=== PATIENT | male | born 1940 | race Caucasian/White ===

== ENCOUNTER 2022-07-10 17:39 | Emergency (ER) | payer MEDICARE, SELFPAY ==
[2022-07-10 17:46] VITALS: BP 116/64; PULSE 107; RESP 18; TEMP 36.1; O2SAT 92; BMI 25.1
--- NOTE | 2022-07-10 18:34 | ED_ITS ---
HPI - General Adult General Time Seen by Provider: 18:35 Date Seen: 07/10/22 Chief complaint: Shortness of Breath/Dyspnea Stated complaint: BREATHING PROBLEMS,HOT/COLD Time Seen by Provider: 07/10/22 18:11 Source: patient and family () History of Present Illness HPI narrative: 82-year-old male presents with a 1 day history of feeling hot and cold. He has monitor his temperature at home and has had a temperature as high as 101?. He also has fatigue and malaise and loss of appetite with this. He reports some generalized achiness. He has not had significant cough or cold symptoms. He has not had nausea vomiting or diarrhea. He does have an indwelling suprapubic catheter. The catheter was changed 4 days ago at his urologist's office. He has had no known exposures but he has been out in the public for the last few days associated with [employer] . Prior to that he was feeling well. Active Problems Medical Problems: Hypothyroidism Medication started 12/16, s/p benign biopsy with Dr. 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 PFSH PFSH Social History Smoking Status: Never smoker Do you use any of these nicotine containing products: None Second hand tobacco smoke exposure: No How often do you have a drink containing alcohol: never AUDIT-C Alcohol total score: 0 Non-prescribed substance use: denies use Exam Narrative: Exam Narrative: He is alert and appears in no distress. Skin is warm to touch. Eyes are normal. Oropharynx is normal. Neck is supple without mass or adenopathy. Respirations are clear to auscultation. Breathing is unlabored. Cardiovascular: S1, S2, regular rate and rhythm. No murmur gallop or rub. Abdomen: Bowel sounds active. Abdomen is soft without tenderness or mass. Suprapubic tube without significant erythema around the opening. Somewhat concentrated but otherwise normal appearing urine is seen. External genitalia normal. Extremities are without edema. No rash. Const: Vital Signs, click to edit/add: Vital Signs - 24 hr 07/10/22 17:46 Temperature 96.9 F L Pulse Rate [Right Pulse Oximeter] 107 H Respiratory Rate 18 Blood Pressure [Ri ght Upper Arm] 116/64 Pulse Oximetry 92 Oxygen Delivery Me thod Room Air Documenting provider has reviewed patient's vital signs: yes Course Course Hospital Course: Patient remains stable through his emergency department stay Vital Signs Vital signs: Initial Vital Signs Temperature 96.9 F L 07/10/22 17:46 Temperature Source Temporal Artery Scan 07/10/22 17:46 Pulse Rate 107 H 07/10/22 17:46 Respiratory Rate 18 07/10/22 17:46 Blood Pressure 116/64 07/10/22 17:46 Blood Pressure Mean 81 07/10/22 17:46 Blood Pressure Position Sitting 07/10/22 17:46 Pulse Oximetry 92 07/10/22 17:46 Oxygen Delivery Method 07/10/22 17:46 Vital Signs Temperature 96.9 F L 07/10/22 17:46 Pulse Rate 107 H 07/10/22 17:46 Respiratory Rate 18 07/10/22 17:46 Blood Pressure 116/64 07/10/22 17:46 Pulse Oximetry 92 07/10/22 17:46 Oxygen Delivery Method 07/10/22 17:46 Temperature 96.9 F L 07/10/22 17:46 Pulse Rate 107 H 07/10/22 17:46 Respiratory Rate 18 07/10/22 17:46 Blood Pressure 116/64 07/10/22 17:46 Pulse Oximetry 92 07/10/22 17:46 Oxygen Delivery Method 07/10/22 17:46 Medical Decision Making Lab Data Labs: Lab Results 07/10/22 07/10/22 07/10/22 Range/Units 18:32 18:32 18:55 WBC 9.54 (4.50-11.00) K/uL RBC 3.66 L (4.30-5.90) m/uL Hgb 12.3 L (13.5-17.5) gm/dL Hct 35.1 L (37.0-53.0) % MCV 96 (80-100) fL MCH 34 (26-34) pg MCHC 35 (32-36) gm/dL RDW Coeff of Loni 13.8 (11.5-15.5) % Plt Count 172 (140-440) K/uL Neut % (Auto) 93.7 H (42.0-72.0) % Lymph % (Auto) 2.3 L (20-44) % Gem % (Auto) 3.8 (0.0-11.0) % Eos % (Auto) 0.0 (0.0-7.0) % Baso % (Auto) 0.1 (0.0-3.0) % Neut # (Auto) 8.90 H (1.7-7.0) K/uL Lymph # (Auto) 0.20 L (0.90-2.90) K/uL Gem # (Auto) 0.40 (0.00-0.90) K/UL Eos # (Auto) 0.00 (0.00-0.50) K/uL Baso # (Auto) 0.01 (0.00-0.30) K/uL Abs Immat Gran (auto) 0.01 (0.00-0.30) K/uL Sodium (135-149) mmol/L Potassium (3.6-5.1) mmol/L Chloride (96-114) mmol/L Carbon Dioxide (20-32) mmol/L BUN (7-30) mg/dL Creatinine (0.5-1.5) mg/dL Estimated Creat Clear Estimated GFR ml/min Glucose (60-115) mg/dL Calcium (8.4-10.6) mg/dL C-Reactive Protein (0.5-1.0) mg/dL Urine Color [place] A (Yellow) Urine Appearance Cloudy A (Clear) Urine pH 6.5 (5.0-8.5) Ur Specific [place] 1.025 (1.000-1.030) Urine Protein 2+ A (Negative) Urine Glucose (UA) Negative (Negative) Urine Ketones Negative (Negative) Urine Blood 2+ A (Negative) Urine Nitrite Positive A (Negative) Urine Bilirubin Negative (Negative) Urine Urobilinogen 0.2 (0.2-1.0) Ur Leukocyte Esterase Trace A (Negative) Urine RBC 10-25 A (0-2) Urine WBC 5-10 A (0-5) Ur Squamous Epith Cells Few (None-Few) Amorphous Sediment Few A (None) Urine Bacteria Moderate A (None) SARS-CoV-2 (PCR) Negative SARS-CoV-2 (Negative) Influenza Type A (PCR) Negative PCR FLU A (Negative) Influenza Type B (PCR) Negative PCR FLU B (Negative) 07/10/22 Range/Units 18:55 WBC (4.50-11.00) K/uL RBC (4.30-5.90) m/uL Hgb (13.5-17.5) gm/dL Hct (37.0-53.0) % MCV (80-100) fL MCH (26-34) pg MCHC (32-36) gm/dL RDW Coeff of Loni (11.5-15.5) % Plt Count (140-440) K/uL Neut % (Auto) (42.0-72.0) % Lymph % (Auto) (20-44) % Gem % (Auto) (0.0-11.0) % Eos % (Auto) (0.0-7.0) % Baso % (Auto) (0.0-3.0) % Neut # (Auto) (1.7-7.0) K/uL Lymph # (Auto) (0.90-2.90) K/uL Gem # (Auto) (0.00-0.90) K/UL Eos # (Auto) (0.00-0.50) K/uL Baso # (Auto) (0.00-0.30) K/uL Abs Immat Gran (auto) (0.00-0.30) K/uL Sodium 132 L (135-149) mmol/L Potassium 4.0 (3.6-5.1) mmol/L Chloride 104 (96-114) mmol/L Carbon Dioxide 21 (20-32) mmol/L BUN 23 (7-30) mg/dL Creatinine 1.3 (0.5-1.5) mg/dL Estimated Creat Clear 41.67 Estimated GFR 55 ml/min Glucose 123 H (60-115) mg/dL Calcium 8.8 (8.4-10.6) mg/dL C-Reactive Protein 7.5 H (0.5-1.0) mg/dL Urine Color (Yellow) Urine Appearance (Clear) Urine pH (5.0-8.5) Ur Specific [place] (1.000-1.030) Urine Protein (Negative) Urine Glucose (UA) (Negative) Urine Ketones (Negative) Urine Blood (Negative) Urine Nitrite (Negative) Urine Bilirubin (Negative) Urine Urobilinogen (0.2-1.0) Ur Leukocyte Esterase (Negative) Urine RBC (0-2) Urine WBC (0-5) Ur Squamous Epith Cells (None-Few) Amorphous Sediment (None) Urine Bacteria (None) SARS-CoV-2 (PCR) (Negative) Influenza Type A (PCR) (Negative) Influenza Type B (PCR) (Negative) Discharge Plan Discharge Clinical Impression: Urinary tract infection, Fever Patient Disposition: Home, Self-Care Condition: Stable Additional Instructions: Take 1/2 tablet of Sulfatrim twice a day starting tonight. Take only 1/2 tablet twice a day. One whole tablet is too strong a dose. Drink plenty of fluids. See your doctor in 2-3 days for recheck and culture results. Return to the emergency department if you are getting worse. Activity Level: Activity as Tolerated Discharge Diet: Regular Prescriptions: No Action atorvastatin 20 mg tablet Label Comments: TAKE ONE TABLET BY MOUTH AT BEDTIME lisinopril 20 mg tablet Label Comments: TAKE 1 TABLET BY MOUTH ONCE DAILY. levothyroxine 88 mcg tablet Label Comments: TAKE ONE TABLET BY MOUTH ONCE DAILY Follow Up/Referrals: Deion Aguillon MD [Primary Care Provider] - (2-3 days) Stand Alone Forms: Lockr Info Instructions
--- OUTSIDE RECORDS SUMMARY | 2022-07-10 19:05 | XMS_ITS | Encounter Summary ---
:1940 Author Care Team Providers Name Role Phone [facility] Primary Care Provider [phone] Deion Aguillon MD Primary Care Provider [phone] Reason for Visit Lab/Nursing Visit Assessment and Plan 1. Retention of urine Discussion Note: None recorded.Patient educational handouts: No information available. Plan of Care Reminders Provider Appointments Lab Cath Change 08/03/2022 9:30AM Nurse_sched ule ? Lab Cath Change 08/31/2022 9:50AM Nurse_sched ule ? Lab Cath Change 10/26/2022 9:20AM Nurse_sched ule Lab None recorded. ? ? Referral None recorded. ? ? Procedures None recorded. ? ? Surgeries None recorded. ? ? Imaging None recorded. ? ? Medications Name Start Date ? ? Adult Low Dose Aspirin 81 mg tablet,delayed release ? Take 1 tablet every day by oral route. atorvastatin 20 mg tablet ? TAKE ONE TABLET BY MOUTH AT BEDTIME levothyroxine 75 mcg tablet ? Take 1 tablet every day by oral route. levothyroxine 88 mcg tablet ? TAKE ONE TABLET BY MOUTH ONCE DAILY lisinopril 10 mg tablet ? Take 1 tablet every day by oral route. lisinopril 20 mg tablet ? TAKE 1 TABLET BY MOUTH ONCE DAILY. Nexium 20 mg capsule,delayed release ? Take 1 capsule every day by oral route. sildenafil 50 mg tablet ? TAKE 1-2 TABLETS BY MOUTH NEEDED [facility] ON EMPTY STOMACH AROUND SEXUAL ACTIVITY Vitamin D3 10 mcg (400 unit) capsule ? Take by oral route. Medications Administered None recorded. Vitals None recorded. Results Lab Results None recorded. Allergies Code Code System Name Reaction Severity Onset 733 RxNorm Ampicillin ? ? ? 290575 RxNorm Demerol ? ? ? Penicillin ? ? ? Problems Name Status Onset Date Source ? Finding of Bladder Emptying Active 12/12/2017 Hist ory Raised Prostate Specific Antigen Active 06/27/2018 History Procedures Date Name Performed by ? 03/04/2020 Insert Temp Bladder Cath Information not available Notes: 03/04/2020 - INSERT TEMP BLADDE R CATH 01/29/2020 Insert Temp Bladder Cath Information not available Notes: 01/29/2020 - INSERT TEMP BLADDE R CATH 01/01/2020 Insert Temp Bladder Cath Information not available Notes: 01/01/2020 - INSERT TEMP BLADDE R CATH 12/04/2019 Insert Temp Bladder Cath Information not available Notes: 12/04/2019 - INSERT TEMP BLADDE R CATH 10/30/2019 Insert Temp Bladder Cath Information not available Notes: 10/30/2019 - INSERT TEMP BLADDE R CATH 10/09/2019 Insert Temp Bladder Cath Information not available Notes: 10/09/2019 - INSERT TEMP BLADDE R CATH 08/28/2019 Insert Temp Bladder Cath Information not available Notes: 08/28/2019 - INSERT TEMP BLADDE R CATH 07/31/2019 Insert Temp Bladder Cath Information not available Notes: 07/31/2019 - INSERT TEMP BLADDE R CATH 07/03/2019 Insert Temp Bladder Cath Information not available Notes: 07/03/2019 - INSERT TEMP BLADDE R CATH 05/29/2019 Insert Temp Bladder Cath Information not available Notes: 05/29/2019 - INSERT TEMP BLADDE R CATH 05/08/2019 Insert Temp Bladder Cath Information not available Notes: 05/08/2019 - INSERT TEMP BLADDE R CATH 03/20/2019 Insert Temp Bladder Cath Information not available Notes: 03/20/2019 - INSERT TEMP BLADDE R CATH 02/20/2019 Insert Temp Bladder Cath Information not available Notes: 02/20/2019 - INSERT TEMP BLADDE R CATH 01/23/2019 Insert Temp Bladder Cath Information not available Notes: 01/23/2019 - INSERT TEMP BLADDE R CATH 12/26/2018 Insert Temp Bladder Cath Information not available Notes: 12/26/2018 - INSERT TEMP BLADDE R CATH 11/21/2018 Insert Temp Bladder Cath Information not available Notes: 11/21/2018 - INSERT TEMP BLADDE R CATH 10/24/2018 Insert Temp Bladder Cath Information not available Notes: 10/24/2018 - INSERT TEMP BLADDE R CATH 09/26/2018 Insert Temp Bladder Cath Information not available Notes: 09/26/2018 - INSERT TEMP BLADDE R CATH 08/22/2018 Insert Temp Bladder Cath Information not available Notes: 08/22/2018 - INSERT TEMP BLADDE R CATH 07/25/2018 Insert Temp Bladder Cath Information not available Notes: 07/25/2018 - INSERT TEMP BLADDE R CATH 06/27/2018 Insert Temp Bladder Cath Information not available Notes: 06/27/2018 - INSERT TEMP BLADDE R CATH 05/24/2018 Insert Temp Bladder Cath Information not available Notes: 05/24/2018 - INSERT TEMP BLADDE R CATH 04/25/2018 Insert Temp Bladder Cath Information not available Notes: 04/25/2018 - INSERT TEMP BLADDE R CATH 02/27/2018 Insert Temp Bladder Cath Information not available Notes: 02/27/2018 - INSERT TEMP BLADDE R CATH 01/24/2018 Insert Temp Bladder Cath Information not available Notes: 01/24/2018 - INSERT TEMP BLADDE R CATH 01/03/2018 Anal/urinary Muscle Study Information no t available Notes: 01/03/2018 - ANAL/URINARY MUSCL E STUDY 01/03/2018 Cystometrogram W/scarifier operator&up Information not a vailable Notes: 01/03/2018 - CYSTOMETROGRAM W/V P&UP 01/03/2018 Insert Temp Bladder Cath Information not available Notes: 01/03/2018 - INSERT TEMP BLADDE R CATH 01/03/2018 Intraabdominal Pressure Test Information not available Notes: 01/03/2018 - INTRAABDOMINAL PRE SSURE TEST 01/03/2018 Electro-uroflowmetry First Information n ot available Notes: 01/03/2018 - ELECTRO-UROFLOWMET RY FIRST 12/20/2017 Insert Temp Bladder Cath Information not available Notes: 12/20/2017 - INSERT TEMP BLADDE R CATH 12/20/2017 Cystoscopy Information not avai lable Notes: 12/20/2017 - CYSTOSCOPY 10/29/2012 Colonoscopy Thru Stoma Spx Information n ot available Notes: 10/29/2012 - COLONOSCOPY THRU S BHARGAV SPX 12/12/1977 Removal of Gallbladder Information not a vailable Notes: 12/12/1977 - REMOVAL OF GALLBLA DDER Vaccine List Vaccine Type COVID-19, mRNA, LNP-S, PF, 30 mcg/0.3 mL dose ([employer]) 12/07/2020 12/28/2020 10/18/2021 influenza, high dose seasonal 08/14/2019 influenza, high-dose, quadrivalent 09/21/2021 influenza, seasonal, injectable 08/11/2008 08/26/2009 influenza, seasonal, injectable, preserv ative free 09/01/2011 pneumococcal polysaccharide PPV23 08/11/2008 Tdap 08/14/2019 Social History Tobacco Smoking Status Former Smoker Marital status Has tobacco cessation counseling been provided? Y Are you currently employed? N Could you be ? N Preferred Language Panamanian How much tobacco do you chew? none What was the date of your most recent tobacco 06/08/2022 screening? Do you or have you ever used e-cigarettes or Never used elec tronic cigarettes vape? Ethnicity Not / Do you use any illicit or recreational drugs? N When did you quit smoking? 16+yearssincelastcigarette How many years have you smoked tobacco? 6 What is your relationship status? Unknown What is your level of alcohol consumption? Occasional Do you or have you ever used smokeless tobacco? Never used s mokeless tobacco On what date was tobacco cessation counseling 05/04/2022 provided? Are you sexually active? N Do you or have you ever used any other forms of N tobacco or nicotine? What is your level of caffeine consumption? Occasional Race White Recreational Drug Use N Functional Status Unknown. Past Encounters 07/06/2022 Retention of Urine Lola Cadena, PA: [address] [place] [address], [address] [address], Ph. 06/08/2022 Urinary Tract Infectious Disease; Retent ion of Urine Kimo Simmons, PAC: [address] [facility], [facility] [address] [address], Ph. History of Present Illness None recorded. Review of Systems None recorded. Physical Exam None recorded.
--- OUTSIDE RECORDS SUMMARY | 2022-07-10 19:05 | XMS_ITS | Encounter Summary ---
:1940 Author Care Team Providers Name Role Phone [facility] Primary Care Provider [phone] Deion Aguillon MD Primary Care Provider [phone] Reason for Visit Monthly Catheter Change Assessment and Plan 1. Primary erectile dysfunction ? sildenafil 50 mg tablet 2. Neurogenic bladder Discussion Note 81 y/o male presents for an evaluation of ED and follow up of neurogenic bladder. ED - Educated on etiology of ED (hormona l, nerve function, blood supply, psychological, medications). Discussed diagnostics such as penile US and testosterone labs. Educated on treatment options such as PDE-5 inhibitors, penile injections, mu se, vacuum erection device (MANDY), and penile implant (IPP). Discontinue Tadalafil. Trial of Sildenafil 50-100 mg timed around sexual activity. Educated on side ef fects such as vision/hearing changes, hy potension, facial flushing, headache, nasal congestion, GERD, and priapism. Patient to call with an update after use. Neurogenic bladder - SP catheter replace d without difficulty. Maintain exchanges every 4 weeks. Patient educational handouts: No information available. Plan of [...] oral route. Medications Administered None recorded. Vitals Height Weight BMI 5 ft 6 in 160 lbs 25.8 kg/m2 Results Lab Results None recorded. Allergies Code Code System Name Reaction Severity Onset 733 RxNorm Ampicillin ? ? ? 076265 RxNorm Demerol ? ? ? Penicillin ? [...] - ANAL/URINARY MUSCL E STUDY 01/03/2018 Cystometrogram W/vp of technology&up Information not a vailable Notes: 01/03/2018 - [...] mRNA, LNP-S, PF, 30 mcg/0.3 mL dose ([employer]) 12/07/2020 12/28/2020 10/18/2021 influenza, high dose seasonal 08/14/2019 influenza, high-dose, quadrivalent 09/21/2021 influenza, seasonal, injectable 08/11/2008 08/26/2009 influenza, seasonal, injectable, preserv ative free 09/01/2011 pneumococcal polysaccharide PPV23 08/11/2008 Tdap 08/14/2019 Social History Tobacco Smoking Status Former Smoker Marital status Has tobacco cessation counseling been provided? Y Are you currently employed? N Could you be ? N Preferred Language Czech How much tobacco do you chew? none What was the date of your most recent tobacco 06/08/2022 screening? Ethnicity Not / Do you or have you ever used e-cigarettes or Never used elec tronic cigarettes vape? Do you use any illicit or recreational [...] Use N Functional Status Unknown. Past Encounters 05/04/2022 Primary Erectile Dysfunction; Neurogenic Bladder Kimo Simmons, PAC: [address] [facility] [address], [place] [address], Ph. History of Present Illness ? Voiding Dysfunction Reported By: Patient Notes: <div>Patient with hx of neur ogenic bladder presents for a routine suprapubic catheter change. He has been tolerating SP catheter well since last visit. Yellow uri ne draining freely though catheter. Mild, infrequent discharge around SP catheter site. Denies fever, chills, gross hematuria and abdomina l pain.</div> ? Erectile Dysfunction Reported By: Patient Notes: <div>Patient presents for an evaluation of erectile dysfunction. He reports difficulties with er ections for the past 4+ years. He has required a george catheter fo r the past 4 years which has limited his ability to have erections. Rey oconnor did have mild difficulties with quality of erections prior to catheter use. He has transitioned to a suprapubic catheter within the past 6 m ont and is interested in getting erectile function back. Able to achie ve a borderline ehs of 3 with borderline adequate maintenance. No angelito n or curvature with erections. Good libido and energy for age. </div> Review of Systems: ROS as noted in the HPI Review of Systems ? Comprehensive General Adult ROS Reported By: Patient Constitutional: Constitutional: no fever, no chills Eyes: Eyes: no dry eyes, no vision change, no irritation Endocrine: Endocrine: no fatigue, no in creased thirst Cardiovascular: Cardiovascular: no chest angelito n, no palpitations Integumentary: Skin: no rashes, no change i n skin color Respiratory: Respiratory: no wheezing, no cough, no shortness of breath Gastrointestinal: Gastrointestinal: no abdomin al pain, no nausea, no vomiting, no constipation, no GERD Musculoskeletal: Musculoskeletal: no neck angelito n, no back pain Neurologic: Neurologic: no tremor, no di zziness, no numbness, no headaches Genitourinary: Genitourinary: no incontinen ce, difficulty urinating; Has SP tube ENMT: Ears: no ear pain. Mouth/Thr oat: no sore throat Allergic/Immunologic: Allergy/Immunologic: no itch ing, no hives Hematologic/Lymphatic: Hematologic/Lymphatic no swo llen glands, no excessive bleeding Psychiatric: Psych: no hallucinations, (n ormal) sleep disturbances: mismatch of sleep / wake oswaldo edule with lifestyle needs Physical Exam ? General Adult Exam Male Reported By: Patient Constitutional: General Appearance: healthy- appearing, well-nourished, well-developed. Level of Dis tress: NAD. Ambulation: ambulating normally Psychiatric: Insight: good judgement. Men denis Status: active and alert, normal mood, normal affect. Orienta tion: oriented to time, oriented to place, oriented to person. M laurie: recent memory normal, remote memory normal Lungs: Respiratory effort: no dyspn ea Abdomen: Inspection and Palpation: so ft, non-distended, no tenderness; SP catheter in place
--- OUTSIDE RECORDS SUMMARY | 2022-07-10 19:05 | XMS_ITS | Clinical Summary ---
:1940 Author Organization [facility] Address [place] [address] Care Team Providers Name Role Phone David Lu MD Primary Care Provider Allergies Active Allergy Reactions Severity Noted Date Comments Ampicillin Rash 08/02/2006 Meperidine Nausea And Vomiting 08/02/2006 Penicillins Rash 08/02/2006 Medications Medication Sig Dispensed Refills Start Date End Date Status ASPIRIN 81 MG TAB one every day 90 0 08/26/2009 Active CENTRUM SILVER 500 one every day 90 0 08/26/2009 Active MCG-250 MCG CHEWABLE TAB VITAMIN D 1,000 UNIT one every day 90 0 08/26/2009 Active TAB terazosin (HYTRIN) 2 mg Take 1 capsule 90 capsule 06/13/2017 Active capsuleIndications: by mouth at Elevated prostate bedtime. specific antigen (PSA) esomeprazole magnesium Take by mouth. 0 06/13/2017 Active 20 mg TbECIndications: Gastric reflux tadalafil (CIALIS) 5 mg Take 1 tablet by 30 tablet 7 Active tabletIndications: ED mouth once (erectile dysfunction) daily. of organic origin lisinopril (PRINIVIL; TAKE 1 TABLET BY 30 tablet 0 09/09/2018 Active ZESTRIL) 10 mg MOUTH ONCE tabletIndications: DAILY. Essential hypertension, benign levothyroxine sodium Take by mouth. 0 Active (LEVOTHROID ORAL) Active Problems Problem Noted Date Colon polyps 08/15/2013 Elevated prostate specific antigen (PSA) 11/20/2007 Essential hypertension, benign 06/05/2007 Esophageal reflux 06/05/2007 Hypertrophy of prostate with urinary obstruction and o ther lower urinary 06/05/2007 tract symptoms (LUTS) Unspecified hemorrhoids without mention of complicatio n 06/05/2007 Umbilical hernia without mention of obstruction or eulalia grene 06/05/2007 Inguinal hernia without mention of obstruction or gang dipak, unilateral or 06/05/2007 unspecified, (not specified as recurrent) Immunizations Name Administration Dates Next Due Influenza, IIV3 (Age >=3 years) 09/01/2011, 08/26/2009, 07/29 Pneumococcal Poly,23-Valent (Pneumovax) 08/11/2008 Tetanus Toxoid 06/21/2006 Family History Relation Name Status Comments Mother (Age 89) 09/06 Social History Tobacco Use Types Packs/Day Years Used Date Former Smoker Quit: 10/29/18 62 Smokeless Tobacco: Never Used Tobacco Cessation: Counseling Given: No Comments: quit age 19 Alcohol Use Standard Drinks/Week Comments No 0 (1 standard drink = 0.6 oz pure alcoho l) 1-2 beers a month Alcohol Habits Answer Date Recorded How often do you have a drink containing alcohol? Not asked How many drinks containing alcohol do you have on a Not aske d typical day when you are drinking? How often do you have six or more drinks on one Not asked occasion? Comment: 1-2 beers a month 12/01/2021 Sex Assigned at Date Recorded Not on file Obstetrics History Last Filed Vital Signs Vital Sign Reading Time Taken Comments Blood Pressure 130/66 12/01/2021 1:34 PM RESIDENTIAL NURSE Pulse 72 12/01/2021 1:34 PM RESIDENTIAL NURSE Temperature 37.1 ??C (98.8 ??F) 12/01/2021 10:20 AM RESIDENTIAL NURSE Respiratory Rate 16 12/01/2021 1:34 PM RESIDENTIAL NURSE Oxygen Saturation 86% 12/01/2021 1:34 PM RESIDENTIAL NURSE Inhaled Oxygen Concentration - - Weight 74.8 kg (165 lb) 12/01/2021 10:20 AM RESIDENTIAL NURSE Height 167.6 cm (5' 6) 12/01/2021 10:20 AM RESIDENTIAL NURSE Body Mass Index 26.63 12/01/2021 10:20 AM RESIDENTIAL NURSE Plan of Treatment Health Maintenance Due Date Last Done Comments Tdap 1952 Tetanus booster 1961 Zoster (shingles) series for age 50+ 1991 (1 of 2) Pneumococcal series for age 65+ (2 - 08/11/2009 08/11/2008 PCV) BMI (ht and wt on same day) for age 0806/13/2018 06/13/2017, 08/09/2016 18+ Depression screening for age 12+ 06/13/2018 06/13/2017, , 08/09/2016 COVID-19 vaccine series (4 - Booster 02/16/2022 10/18/2021, 12/28/2020, for Pfizer series) 12/07/2020 Influenza for age 65+ 06/29/2022 09/01/2011, 08/26/2009, 08/11/2008 Results Not on filefrom Last 3 Months Insurance Payer Benefit Plan / Subscriber ID Effective Dates Phone Addre ss Type Group MEDICARE PART A MEDICARE PART A [id number] 2006-Present ATTN: CLAIMS - HB USE ONLY HB ONLY [address] [place] [address] UCARE MR [facility] MEDICARE [id number] 2019-Present [address] [place] [address] 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
--- OUTSIDE RECORDS SUMMARY | 2022-07-10 19:05 | XMS_ITS ---
:1940 Author Care Team Providers Name Role Phone [facility] Primary Care Provider [phone] FAMILIA ALAMO MD Primary Care Provider [phone] Allergies Code Code System Name Reaction Severity Status Onset 733 RxNorm Ampicillin ? ? Active ? 849889 RxNorm Demerol ? ? Active ? Penicillin ? ? Active ? Medications Name Status Start Date Stop Date ? ? Adult Low Dose Aspirin 81 mg tablet,delayed release Active ? Not available Take 1 tablet every day by oral route. atorvastatin 20 mg tablet Active ? Not av ailable TAKE ONE TABLET BY MOUTH AT BEDTIME levothyroxine 75 mcg tablet Active ? Not available Take 1 tablet every day by oral route. levothyroxine 88 mcg tablet Active ? Not available TAKE ONE TABLET BY MOUTH ONCE DAILY lisinopril 10 mg tablet Active ? Not avai lable Take 1 tablet every day by oral route. lisinopril 20 mg tablet Active ? Not avai lable TAKE 1 TABLET BY MOUTH ONCE DAILY. Nexium 20 mg capsule,delayed release Active ? Not available Take 1 capsule every day by oral route. sildenafil 50 mg tablet Active ? Not avai lable TAKE 1-2 TABLETS BY MOUTH NEEDED [facility] ED ON EMPTY STOMACH AROUND SEXUAL ACTIVITY tadalafil 20 mg tablet Completed ? 2 TAKE 1 TABLET BY MOUTH NEEDED TIMED AROUND SEXUAL ACTIVITY tadalafil 5 mg tablet Completed ? 03/14/2022 TAKE ONE TABLET BY MOUTH EVERY DAY FOR 30 DAYS Vitamin D3 10 mcg (400 unit) capsule Active ? Not available Take by oral route. Problems Name Status Onset Date Source ? [...] ANAL/URINARY MUSCL E STUDY 01/03/2018 Cystometrogram [employer]&up Information not a vailable Notes: 01/03/2018 - [...] Notes: 12/12/1977 - REMOVAL OF GALLBLA DDER Results Lab Results Date Name Specimen Result Interpretation Description Value Range Status Address ? 06/08/2022 Urinalysis, UR ? Color yellow yellow Final [place] [facility]: [address] [place] [address] ? ? UR ? Appearance clear clear Final [place] [facility]: [address] [address], [place] ? ? UR ? Glucose negative negative Final [place] [facility] mg/dL mg/dL [facility]: [address] ? ? UR ? Bilirubin negative negative Final [place] [facility]: [address] ? ? UR ? Ketones negative negative Final [place] [facility] mg/dL mg/dL [facility]: [address] [address], [place] ? ? UR ? Sp. Ernest 1.010 1.010-1.0 Final [place] [facility]: [address] ? ? UR ? pH -[facility] 6.0 5.0-8.0 Final [place] [facility]: [address] ? ? UR ? Protein negative negative Final [place] [facility] mg/dL mg/dL [facility]: [address] ? ? UR ? Urobilinogen 0.2 normal Final [place] [facility]: [address] ? ? UR ? Nitrites negative negative Final [place] [facility]: [address] [address], [place] ? ? UR ABNORMA Blood large negative Final [place] [facility]: [address] ? ? UR ABNORMA Leukocytes small negative Final [place] [facility]: [address] ? ? UR ? Performed by va X ? Final [place] [facility]: [address] ? ? UR ? Total Urine 30mls /mL ? Final [place] Volume (mL) [facility]: [address] [place] [address] 06/08/2022 Urinalysis, ABNORMA U-WBC 2 - 5 [hpf] 0 - 2 Fi nal [place] Microscopic L [hpf] [facility]: [address] ? ? ? U-RBC 0 - 2 [hpf] 0 - 2 Final [place] [hpf] [facility]: [address] [place] [address], [place] ? ? ABNORMA Bacteria small [hpf] negative Final [place] L [hpf] [facility]: [address] [place] [address], [place] ? ? ? Squamous Epi small /lpf negative, Fin al Becky small [facility] - [facility]: [address] [place] [address], [place] 06/08/2022 Culture, URT ABNORMA Final Report microbiology ? Final [place] Urine L results [facility]: [address] [place] [address], [place] Past Encounters 07/06/2022 Retention of Urine Lola Cadena PA: [address] [place] [phone], Ph. 06/08/2022 Urinary Tract Infectious Disease; Retent ion of Urine Kimo Simmons, PAC: [address] [place], [place] [address] [address] [place] [phone], Ph. 05/04/2022 Primary Erectile Dysfunction; Neurogenic Bladder Kimo Simmons, PAC: [address] [place] [address], uite [address] [place] [phone], Ph. 03/09/2022 Retention of Urine Lola Cadena PA: [address] [place] [phone], Ph. 02/09/2022 Retention of Urine SHERRY Kurtz: [address] [place] [phone], Ph. 01/13/2022 Neurogenic Bladder; Primary Erectile Dys function SHERRY Kurtz: [address] [place] [phone], Ph. 11/10/2021 Retention of Urine Torres Gonzalez MD: [address] [place] [address], [place] [address] [place] [phone], Ph. 10/13/2021 Neurogenic Bladder Gennaro Smalls, PAC: [address] [place] [phone], Ph. 10/13/2021 Retention of Urine Torres Gonzalez MD: [address] [place] [address], [address], [place] [address], Ph. 08/25/2021 Retention of Urine Torres Gonzalez MD: [address] [place] [address], [address], [place] [address], Ph. 07/28/2021 Retention of Urine Torres Gonzalez MD: [address] [place] [address], [address], [place] [address], Ph. 06/30/2021 Retention of Urine Torres Gonzalez MD: [address] [place] [address], [address], [place] [phone], Ph. 06/02/2021 Retention of Urine; Acontractile Detruso r Torres Gonzalez MD: [address] [place] [address], [address], [place] [address], Ph. 06/02/2021 Retention of Urine Torres Gonzalez MD: [address] [place] [address], [address], [place] [address], Ph. 05/05/2021 Retention of Urine Torres Gonzalez MD: [address] [place] [address], [address], [place] [address], Ph. 04/07/2021 Retention of Urine Torres Gonzalez MD: [address] [place] [address], [address], [place] [address], Ph. 03/03/2021 Retention of Urine Torres Gonzalez MD: [address] [place] [address], [address], [place] [address], Ph. 02/03/2021 Retention of Urine Torres Gonzalez MD: [address] [place] [address], [address], [place] [address], Ph. Social History Tobacco Smoking Status Former Smoker Vaccine List Vaccine Type COVID-19, mRNA, LNP-S, PF, 30 mcg/0.3 mL dose (Youneeq) 12/07/2020 12/28/2020 10/18/2021 influenza, high dose seasonal 08/14/2019 influenza, high-dose, quadrivalent 09/21/2021 influenza, seasonal, injectable 08/11/2008 08/26/2009 influenza, seasonal, injectable, preserv ative free 09/01/2011 pneumococcal polysaccharide PPV23 08/11/2008 Tdap 08/14/2019 Plan of Care Reminders Provider Appointments None recorded. ? ? Lab None recorded. ? ? Referral None recorded. ? ? Procedures None recorded. ? ? Surgeries None recorded. ? ? Imaging None recorded. ? ? Vitals 06/08/2022 09:50AM LAB CATH CHANGE Height 5 ft 6 in 05/04/2022 08:00AM ESTABLISHED 30 Height Weight BMI 5 ft 6 in 160 lbs 25.8 kg/m2 01/13/2022 10:30AM ESTABLISHED 30 Height Weight BMI 5 ft 6 in 160 lbs 25.8 kg/m2 10/13/2021 11:30AM ESTABLISHED 30 Height Weight BMI 5 ft 6 in 160 lbs 25.8 kg/m2 06/02/2021 10:50AM ESTABLISHED 10 Height 5 ft 6 in 06/03/2020 10:50AM ESTABLISHED 15 Height Weight BMI 5 ft 6 in 160 lbs 25.8 kg/m2
--- OUTSIDE RECORDS SUMMARY | 2022-07-10 19:05 | XMS_ITS | Encounter Summary ---
:1940 Author Care Team Providers Name Role Phone [facility] Primary Care Provider [phone] Deion Aguillon MD Primary Care Provider [phone] Reason for Visit Catheter Change - Nurse Visit Assessment and Plan 1. Urinary tract infectious disease ? urinalysis, dipstick ? culture, urine 2. Retention of urine Discussion Note: None recorded.Patient educational handouts: No information available. Plan of Care Reminders Provider Appointments Lab Cath Change 08/03/2022 9:30AM Nurse_sched ule ? Lab Cath Change 08/31/2022 9:50AM Nurse_sched ule ? Lab Cath Change 10/26/2022 9:20AM Nurse_sched ule Lab Urinalysis, Dipstick 06/08/2022 [facility] ? Culture, Urine 06/08/2022 [facility] Referral None recorded. ? ? Procedures None [...] route. Medications Administered None recorded. Vitals Height 5 ft 6 in Results Lab Results Date Name Specimen Result Interpretation Description Value Range Status Address ? 06/08/2022 Urinalysis, UR ? Color yellow yellow Final [place] [facility]: [address] ? ? UR ? Appearance clear clear Final [place] [facility]: [address] [address], [place] ? ? UR ? Glucose negative negative Final [place] [facility] mg/dL mg/dL [facility]: [address] ? ? UR ? Bilirubin negative negative Final [place] [facility]: [address] ? ? UR ? Ketones negative negative Final [place] [facility] mg/dL mg/dL [facility]: [address] ? ? UR ? Sp. [place] 1.010 1.010-1.0 Final [place] [facility]: [address] ? ? UR ? pH -[facility] 6.0 5.0-8.0 Final [place] [facility]: [address] ? ? UR ? Protein negative negative Final [place] [facility] mg/dL mg/dL [facility]: [address] ? ? UR ? Urobilinogen 0.2 normal Final [place] [facility]: [address] [address], [place] ? ? UR ? Nitrites negative negative Final [place] [facility]: [address] ? ? UR ABNORMA Blood large negative Final [place] [facility]: [address] [address], [place] ? ? UR ABNORMA Leukocytes small negative Final [place] [facility]: [address] ? ? UR ? Performed by va X ? Final [place] [facility]: [address] ? ? UR ? Total Urine 30mls /mL ? Final [place] Volume (mL) [facility]: [address] [place] [address] 06/08/2022 Culture, URT ABNORMA Final Report microbiology ? Final [place] Urine L results [facility]: [address] [address], [place] Allergies Code Code System Name Reaction Severity Onset 733 RxNorm Ampicillin ? ? ? 188075 RxNorm Demerol ? ? ? Penicillin ? [...] - ANAL/URINARY MUSCL E STUDY 01/03/2018 Cystometrogram [employer]&up Information not a vailable Notes: 01/03/2018 - [...] mRNA, LNP-S, PF, 30 mcg/0.3 mL dose ([employer]) 12/07/2020 12/28/2020 10/18/2021 influenza, high dose seasonal 08/14/2019 influenza, high-dose, quadrivalent 09/21/2021 influenza, seasonal, injectable 08/11/2008 08/26/2009 influenza, seasonal, injectable, preserv ative free 09/01/2011 pneumococcal polysaccharide PPV23 08/11/2008 Tdap 08/14/2019 Social History Tobacco Smoking Status Former Smoker Marital status Has tobacco cessation counseling been provided? Y Are you currently employed? N Could you be ? N Preferred Language Sammarinese How much tobacco do you chew? none [...] Use N Functional Status Unknown. Past Encounters 06/08/2022 Urinary Tract Infectious Disease; Retent ion of Urine Kimo Simmons, PAC: [address] [facility], [address] [phone], Ph. History of Present Illness None recorded. Review of Systems None recorded. Physical Exam None recorded.
--- NOTE | 2022-07-10 19:13 | CRLHL7_ITS ---
For Patients: As a result of the Cures Act, medical imaging exams and procedure reports are released immediately into your electronic medical record. You may view this report before your referring provider. If you have questions, please contact your health care provider. INDICATION: Fever, dyspnea. TECHNIQUE: Chest radiograph 2 views COMPARISON: 12/14/2021 FINDINGS: Cardiovascular and mediastinum: The heart silhouette is normal in size and morphology. The mediastinum is normal in appearance. Lungs and pleural spaces: Both lungs are unremarkable in appearance. No sign of pleural effusion seen. No pneumothorax is identified. Bones and soft tissues: No significant findings. IMPRESSION: 1. No acute cardiopulmonary disease is seen. Stable appearance of the chest from 12/09/2017. Dictated by Dank Marte MD @ 07/10/2022 8:36:00 PM Dictated by: Dank Marte MD @ 07/10/2022 20:36:07 (Electronically Signed)
[2022-07-10 19:17] LABS: Appearance Urine Cloudy (Clear); Bilirubin Urine Negative (Negative); Blood Urine 2+ (Negative); Color Urine Orange (Yellow); Glucose Urine Negative (Negative); Ketones Urine Negative (Negative); Leukocyte Esterase Urine Trace (Negative); Nitrite Urine Positive (Negative); Protein Urine 2+ (Negative); Specific Gravity Urine 1.025 (1.000-1.030); Urobilinogen Urine 0.2 (0.2-1.0); pH Urine 6.5 (5.0-8.5)
[2022-07-10 19:19] LABS: Basophils Absolute Auto 0.01 K/uL (0.00-0.30); Basophils Percent Auto 0.1 % (0.0-3.0); Hematocrit 35.1 % (37.0-53.0); Hemoglobin* 12.3 gm/dL (13.5-17.5); Immature Granulocytes Abs Auto 0.01 K/uL (0.00-0.30); Lymphocytes Percent Auto 2.3 % (20-44); Mean Corpuscular HGB Conc 35 gm/dL (32-36); Mean Corpuscular Hemoglobin 34 pg (26-34); Mean Corpuscular Volume 96 fL (80-100); Monocytes Percent Auto 3.8 % (0.0-11.0); Neutrophils Percent Auto 93.7 % (42.0-72.0); Platelet Count* 172 K/uL (140-440); RDW Coefficient of Variation % 13.8 % (11.5-15.5); Red Blood Count 3.66 m/uL (4.30-5.90); White Blood Count* 9.54 K/uL (4.50-11.00)
[2022-07-10 19:28] LABS: Slide Review Reflex No
[2022-07-10 19:30] LABS: Squamous Epithelial Cell Urine Few (None-Few)
[2022-07-10 19:31] LABS: Amorphous Sediment Urine Few; Bacteria Urine Moderate
[2022-07-10 19:36] LABS: Chloride* 104 mmol/L (96-114); Sodium* 132 mmol/L (135-149)
[2022-07-10 19:38] LABS: Creatinine* 1.3 mg/dL (0.5-1.5); Est. Creatinine Clearance* 41.67; Estimated Glomerular Filt Rate 55 ml/min
[2022-07-10 19:39] LABS: Blood Urea Nitrogen* 23 mg/dL (7-30); Carbon Dioxide* 21 mmol/L (20-32); Glucose* 123 mg/dL (60-115)
[2022-07-10 19:40] LABS: Calcium* 8.8 mg/dL (8.4-10.6)
[2022-07-10 19:42] LABS: C Reactive Protein* 7.5 mg/dL (0.5-1.0)
[2022-07-10 20:54] LABS: PCR FLU A Negative PCR FLU A (Negative); SARS PCR* Negative SARS-CoV-2 (Negative)
[2022-07-10 20:55] LABS: PCR FLU B Negative PCR FLU B (Negative)
--- NOTE | 2022-07-11 09:01 | ED.NURSE ---
Call from lab, both anaerobic and aerobic blood cultures positive w/ gram negative rods. Awaiting further direction from MD Valdez.
--- NOTE | 2022-07-11 09:05 | ED.NURSE ---
Call to pt - spoke w/ Lydia informing her of (+) blood cultures and need to be reevaluated per Dr. Kellogg. She verbalized understanding and will be bringing pt by private vehicle.
== END 2022-07-10 21:31 | disposition home or self-care (01) ==
PROVIDERS: Emergency Provider Family Medicine; PCP Internal Medicine
DX: N39.0 Urinary tract infection, site not specified (principal); R50.9 Fever, unspecified
CPT/HCPCS: 36415; 71046; 80048; 81001; 85025; 86140; 87040; 87086; 87186; 87631; 99284

== ENCOUNTER 2022-07-11 09:46 | Inpatient (IN) | payer MEDICARE, SELFPAY ==
[2022-07-11] VITALS (13 sets, daily range): BP systolic 95–110; BP diastolic 54–59; PULSE 69–89; RESP 18–20; TEMP 36.7–37.7; O2SAT 91–95; BMI 25.1
--- NOTE | 2022-07-11 11:07 | P.IMHP_ITS ---
Hospitalist- H&P: HPI History of Present Illness Date Seen: 07/11/22 Chief complaint: Chills, infection Narrative: Talib Walden is a 82 year old male who presented to the ED for persistent chills and generally feeling poorly. He notes that he has had chills for the past few days, seen in the emergency room yesterday with a fever and started on Bactrim single strength for presumed UTI. Today, his blood cultures were growing Gram-negative rods, so he was called back to the emergency room for evaluation and admission. Check denies any recent GI symptoms, he has no skin concerns, no headache, no ill contacts. ER course: - mild hypotension, asymptomatic. Responded well to IV fluid bolus. No tachycardia or hypoxia. - lactate of 2.7 - white count of 11 with PMN predominance History of BPH and neurogenic bladder. Has a suprapubic catheter in place, this was initiated approximately 6 months ago and is changed monthly. Last catheter change was , 07/06/22. 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 He saw Dr. Painting of Neurology in 2019, has not required any neurologic follow-up since. He has no residual deficits from his CVA. Other medical and surgical history noted below. Has had rashes in the remote past from Amoxicillin and PCN. Ray lives locally with his Lydia. Thrice COVID vaccinated. 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 1-2 pack year smoking history (quit at age 21), ETOH rarely. Lydia would be medical decision maker if needed. Requests Full Code status. Review of Systems Narrative: No skin changes. Appetite low, but no nausea or vomiting. Some dyspnea accompanies the chills, no other breathing concerns. PFSH PFSH Medical History BPH loc w urin obs/LUTS Essential (primary) hypertension Hemorrhagic pancreatitis History of CVA (cerebrovascular accident) without residual deficits Hypothyroidism Surgical History History of cholecystectomy Social History Smoking Status: Never smoker Do you use any of these nicotine containing products: None Second hand tobacco smoke exposure: No How often do you have a drink containing alcohol: never AUDIT-C Alcohol total score: 0 Non-prescribed substance use: denies use Meds Home Medications and Allergies Home Medications Medication Instructions Recorded Confirmed Type atorvastatin 20 mg tablet 20 mg PO DAILY 07/10/22 07/11/22 History levothyroxine 88 mcg tablet 88 mcg PO DAILY 07/10/22 07/11/22 History lisinopril 20 mg tablet 20 mg PO DAILY 07/10/22 07/11/22 History Home Medication Comments: Confirmed with patient Allergies Allergy/AdvReac Type Severity Reaction Status Date / Time ampicillin Allergy Unknown Verified 07/11/22 10:46 penicillin G Allergy Unknown Verified 07/11/22 10:46 Allergies/Adverse Reaction Comments: Rash, remote Exam Narrative: Exam Narrative: GEN: Alert and oriented, answering questions appropriately HEENT: Normal external ears, EOMIs bilaterally CV: RRR, No concerning murmurs, rubs, or gallops R: LCTA bilaterally without concerning wheezing, rales, or rhonchi Abdomen: Soft, nontender, no concerning masses. Site of suprapubic catheter does not appear erythematous, no drainage noted Ext: wwp, no concerning edema Skin: No concerning skin lesions or rashes on exposed skin Neuro: Nonfocal Psych: Appropriate Const: Vital Signs, click to edit/add: Vital Signs - 24 hr 07/11/22 10:42 Temperature 98.1 F Pulse Rate [Pulse Oximeter] 89 Respiratory Rate 20 Blood Pressure [Ri ght Upper Arm] 96/55 L Pulse Oximetry 91 Oxygen Delivery Me thod Room Air Assessment and Plan Assessment and plan (1) Sepsis associated hypotension: Problem comment: Vancomycin and Imipenem/Cilastin initiated in ED on 07/11. Status: Acute Assessment and Plan: Continue vancomycin and imipenem/cilastatin while awaiting further culture results. Continue aggressive IV fluid rehydration, follow lactate. (2) Bacteremia: Status: Acute Assessment and Plan: Likely UTI as primary source; will ask nursing staff to change suprapubic catheter. (3) History of CVA (cerebrovascular accident) without residual deficits: Status: Acute Assessment and Plan: Appears to be at baseline, will have PT and OT follow given history. (4) BPH loc w urin obs/LUTS: Status: Acute (5) Essential (primary) hypertension: Status: Acute Assessment and Plan: Hold home lisinopril given hypotension. (6) Suprapubic catheter: Status: Acute (7) Urinary tract infection: Status: Acute (8) ALEXANDRA (acute kidney injury): Status: Acute Assessment and Plan: Presumably secondary to infectious process and pre renal azotemia secondary to hypotension. Expect improvement with aggressive fluid rehydration. Plan Per above. Lovenox for prophylaxis. Patient lives independently with , plans to go home upon discharge when medically stable.
--- NOTE | 2022-07-11 11:18 | ED_ITS ---
HPI - General Adult General Date Seen: 07/11/22 Chief complaint: Unspecified Complaint, Adult Stated complaint: Chills, infection Time Seen by Provider: 07/11/22 10:45 Source: patient Mode of arrival: ambulatory Limitations: no limitations History of Present Illness HPI narrative: Patient is an 82-year-old gentleman who presents here for evaluation and follow- up after he is growing Gram-negative rods on all 3 of his bottles of his blood culture done yesterday. He was seen for chills feeling unwell, got fluids, and placed on Bactrim single strength for this. He does have a history of an indwelling suprapubic catheter it was felt that this likely is the cause of his sickness. Because he was doing so well yesterday he was let go home, today he follows up, he did have some nausea associated with this, and vomiting x1. Denies any abdominal pain, any coughing, any rashes, no real headache, just overall chills and feeling weak. He denies any diarrhea associated with this, numbness tingling weakness or anything else. He has been sick for the past 2-3 days. Related Data Home Medications Medication Instructions Recorded Confirmed atorvastatin 20 mg tablet 20 mg PO DAILY 07/10/22 07/11/22 levothyroxine 88 mcg tablet 88 mcg PO DAILY 07/10/22 07/11/22 lisinopril 20 mg tablet 20 mg PO DAILY 07/10/22 07/11/22 Allergies Allergy/AdvReac Type Severity Reaction Status Date / Time ampicillin Allergy Unknown Verified 07/11/22 10:46 penicillin G Allergy Unknown Verified 07/11/22 10:46 Review of Systems Status of ROS: Reports: 10 or more systems reviewed and unremarkable except as noted in History and below [facility] Medical History BPH loc w urin obs/LUTS Essential (primary) hypertension Hemorrhagic pancreatitis History of CVA (cerebrovascular accident) without residual deficits Hypothyroidism Surgical History History of cholecystectomy Social History Smoking Status: Never smoker Do you use any of these nicotine containing products: None Second hand tobacco smoke exposure: No How often do you have a drink containing alcohol: never AUDIT-C Alcohol total score: 0 Non-prescribed substance use: denies use Exam Narrative: Exam Narrative: Patient is seen and assessed he is alert oriented speaking to me normally, it appears to be in no distress although he does have a lowish blood pressure in the initially sub 100 systolic, and then was 83 systolic. Does not have a reflexive tachycardia associated with this. His pupils are equal round reactive to light there is no scleral icterus redness there is TMs are normal his oropharynx is normal, is neck is supple full range of motion with no meningismus. Chest is clear bilaterally no wheezing crackles noted heart sounds are normal his abdomen is soft and scaphoid there is no guarding no past splenomegaly he has a suprapubic catheter protruding with no redness swelling notable. There is no evidence of any ulcers noted over his back, perineum, or anything else. Moves all extremities independently well, with no evidence of any rashes, neurologic compromise, normal power in his upper lower extremities, IV was immediately started, he will receive 2 L of normal saline, and I will start him on vancomycin and also imipenem, which should give him good broad- spectrum coverage, developed a rash with penicillin, and I think the 3% chance of cross reactivity with imipenem is something we can take a chance with here. I did talk to the hospitalist and she agreed that the Caroline is warranted here. Const: Vital Signs, click to edit/add: Vital Signs - 24 hr 07/11/22 10:42 Temperature 98.1 F Pulse Rate [Pulse Oximeter] 89 Respiratory Rate 20 Blood Pressure [Ri ght Upper Arm] 96/55 L Pulse Oximetry 91 Oxygen Delivery Me thod Room Air Documenting provider has reviewed patient's vital signs: yes Course Vital Signs Vital signs: Initial Vital Signs Temperature 98.1 F 07/11/22 10:42 Temperature Source Temporal Artery Scan 07/11/22 10:42 Pulse Rate 89 07/11/22 10:42 Pulse Rhythm 07/11/22 10:42 Pulse Strength 3+ Normal 07/11/22 10:42 Respiratory Rate 20 07/11/22 10:42 Blood Pressure 96/55 L 07/11/22 10:42 Blood Pressure Mean 68 07/11/22 10:42 Blood Pressure Position Sitting 07/11/22 10:42 Pulse Oximetry 91 07/11/22 10:42 Oxygen Delivery Method 07/11/22 10:42 Vital Signs Temperature 98.1 F 07/11/22 10:42 Pulse Rate 89 07/11/22 10:42 Respiratory Rate 20 07/11/22 10:42 Blood Pressure 96/55 L 07/11/22 10:42 Pulse Oximetry 91 07/11/22 10:42 Oxygen Delivery Method 07/11/22 10:42 Temperature 98.1 F 07/11/22 10:42 Pulse Rate 89 07/11/22 10:42 Respiratory Rate 20 07/11/22 10:42 Blood Pressure 96/55 L 07/11/22 10:42 Pulse Oximetry 91 07/11/22 10:42 Oxygen Delivery Method 07/11/22 10:42 Medical Decision Making MDM Narrative Medical decision making narrative: Life-threatening differential diagnosis is include meningitis, encephalitis, pneumonia, intra-abdominal infection, bacteremia, other differential diagnosis include but are not limited to viral upper respiratory tract infection, strep, urinary tract infection, skin infection, osteomyelitis, influenza, fungal infections, diskitis, epidural abscess, or fever of unknown origin. Lab Data Lab results reviewed: Yes I reviewed the patient's lab results Critical Care Time Critical Care Time Critical Care Time: Yes Attestation: The patient required my highest level preparedness to intervene emergently and I personally spent this critical care time directly and personally managing the patient. This critical care time included: Obtaining a history; Examining the patient; Pulse oximetry; Ordering and reviewing of studies; Arranging urgent treatment with development of a management plan; Evaluation of patients response to treatment; Frequent reassessment discussions with other providers. This critical care time was performed to assess and manage the high probability of imminent life-threatening deterioration that could result in multiorgan failure. It was exclusive of separate billable procedures and treating other patients and teaching time. Total Critical Care Time in Minutes: 45 Discharge Plan Discharge Clinical Impression: Fever, Sepsis associated hypotension, Bacteremia, Suprapubic catheter Patient Disposition: Admitted As Inpatient Condition: Critical Prescriptions: No Action atorvastatin 20 mg tablet 20 mg PO DAILY Label Comments: TAKE ONE TABLET BY MOUTH AT BEDTIME lisinopril 20 mg tablet 20 mg PO DAILY Label Comments: TAKE 1 TABLET BY MOUTH ONCE DAILY. levothyroxine 88 mcg tablet 88 mcg PO DAILY Label Comments: TAKE ONE TABLET BY MOUTH ONCE DAILY Follow Up/Referrals: Deion Aguillon MD [Primary Care Provider] -
[2022-07-11] MEDS: 0.9 % SODIUM CHLORIDE 1000 ml 1,000 ML IV ×2 (11:35→12:00)
--- OUTSIDE RECORDS SUMMARY | 2022-07-11 11:37 | XMS_ITS | Encounter Summary ---
:1940 Author Care Team Providers Name Role Phone [facility] Primary Care Provider [phone] Deion Aguillon MD Primary Care Provider [phone] Reason for Visit Lab/Nursing Visit Assessment and [...] Onset 733 RxNorm Ampicillin ? ? ? 758297 RxNorm Demerol ? ? ? Penicillin ? [...] ANAL/URINARY MUSCL E STUDY 01/03/2018 Cystometrogram W/vp purchasing&up Information not a vailable Notes: 01/03/2018 - [...] mRNA, LNP-S, PF, 30 mcg/0.3 mL dose ([employer]) 12/07/2020 12/28/2020 10/18/2021 influenza, high dose seasonal 08/14/2019 influenza, high-dose, quadrivalent 09/21/2021 influenza, seasonal, injectable 08/11/2008 08/26/2009 influenza, seasonal, injectable, preserv ative free 09/01/2011 pneumococcal polysaccharide PPV23 08/11/2008 Tdap 08/14/2019 Social History Tobacco Smoking Status Former Smoker Marital status Has tobacco cessation counseling been provided? Y Are you currently employed? N Could you be ? N Preferred Language Faroese How much tobacco do you chew? none [...] 07/06/2022 Retention of Urine Lola Cadena, PA: [address] [place] [address], [address] [phone], Ph. 06/08/2022 Urinary Tract Infectious Disease; Retent ion of Urine Kimo Simmons, PAC: [address] [facility], [facility] [address] [address], Ph. History of Present Illness None recorded. Review of Systems None recorded. Physical Exam None recorded.
--- OUTSIDE RECORDS SUMMARY | 2022-07-11 11:37 | XMS_ITS ---
:1940 Author Care Team Providers Name Role Phone [facility] Primary Care Provider [phone] FAMILIA ALAMO MD Primary Care Provider [phone] Allergies Code Code System Name Reaction Severity Status Onset 733 RxNorm Ampicillin ? ? Active ? [id number] RxNorm Demerol ? ? Active ? Penicillin [...] ANAL/URINARY MUSCL E STUDY 01/03/2018 Cystometrogram W/vp product marketing&up Information not a vailable Notes: 01/03/2018 - [...] Dipstick -[facility]: [address] [place] [address] ? ? UR ? Appearance clear clear Final [place] -[facility]: [address] [address], [place] ? ? UR ? Glucose negative negative Final [place] -[facility] mg/dL mg/dL [facility]: [address] ? ? UR ? Bilirubin negative negative Final [place] -[facility]: [address] ? ? UR ? Ketones negative negative Final [place] [facility] mg/dL mg/dL [facility]: [address] [address], [place] ? ? UR ? Sp. [place] 1.010 1.010-1.0 Final [place] -[facility] 25 [facility]: [address] ? ? UR ? pH -[facility] 6.0 5.0-8.0 Final [place] [facility]: [address] ? ? UR ? Protein negative negative Final [place] [facility] mg/dL mg/dL [facility]: [address] ? ? UR ? Urobilinogen 0.2 normal Final [place] -[facility]: [address] ? ? UR ? Nitrites negative negative Final [place] -[facility]: [address] [address], [place] ? ? UR ABNORMA Blood large negative Final [place] -[facility]: [address] ? ? UR ABNORMA Leukocytes small negative Final [place] L -[facility]: [address] ? ? UR ? Performed by va X ? Final [place] [facility]: [address] ? ? UR ? Total Urine 30mls /mL ? Final [place] Volume (mL) [facility]: [address] [place] [address] 06/08/2022 Urinalysis, ABNORMA U-WBC 2 - 5 [hpf] 0 - 2 Fi nal [place] Microscopic L [hpf] [facility]: [address] ? ? ? U-RBC 0 - 2 [hpf] 0 - 2 Final [place] [hpf] [facility]: [address] [place] [address], [place] ? ? ABNORMA Bacteria small [hpf] negative Final [place] L [hpf] [facility]: [address] [place] [address], [place] ? ? ? Squamous Epi small /lpf negative, Fin al Becky small [facility] - /[facility]: [address] [place] [address], [place] 06/08/2022 Culture, URT ABNORMA Final Report microbiology ? Final [place] Urine L results [facility]: [address] [place] [address], [place] Past Encounters 07/06/2022 Retention of Urine Lola Cadena PA: [address] [place] [phone], Ph. 06/08/2022 Urinary Tract Infectious Disease; Retent ion of Urine Kimo Simmons, PAC: [address] [place], [place] [address] [address] [place] [phone], Ph. 05/04/2022 Primary Erectile Dysfunction; Neurogenic Bladder Kimo Simmons, PAC: [address] [place] [address], u[address] [place] [phone], Ph. 03/09/2022 Retention of Urine Lola Cadena PA: [address] [place] [phone], Ph. 02/09/2022 Retention of Urine SHERRY Kurtz: [address] [place] [phone], Ph. 01/13/2022 Neurogenic Bladder; Primary Erectile Dys function SHERRY Kurtz: [address] [place] [phone], Ph. 11/10/2021 Retention of Urine Torres Gonzalez MD: [address] [place] [address], [address] [address] [place] [phone], Ph. 10/13/2021 Neurogenic Bladder Gennaro Smalls, PAC: [address] [place] [phone], Ph. 10/13/2021 Retention of Urine Torres Gonzalez MD: [address] [place] [address], [address], [place] [address], Ph. 08/25/2021 Retention of Urine Torres Gonzalez MD: [address] [place] [address], [address], [place] [address], Ph. 07/28/2021 Retention of Urine Torres Gonzalez MD: [address] [place] [address], [address], [place] [address], Ph. 06/30/2021 Retention of Urine Torres Gonzalez MD: [address] [place] [address], [address], [place] [address], Ph. 06/02/2021 Retention of Urine; Acontractile Detruso r Torres Gonzalez MD: [address] [place] [address], [address], [place] [address], Ph. 06/02/2021 Retention of Urine Torres Gonzalez MD: [address] [place] [address], [address], [place] [address], Ph. 05/05/2021 Retention of Urine Torres Gonzalez MD: [address] [place] [address], [address], [place] [address], Ph. 04/07/2021 Retention of Urine Torres Gonzalez MD: [address] [place] [address], [address], [place] [address], Ph. 03/03/2021 Retention of Urine Torres Gonzalez MD: [address] [place] [address], [address], [place] [address], Ph. 02/03/2021 Retention of Urine Torres Gonzalez MD: [address] [place] [address], [address], [place] [address], Ph. Social History Tobacco Smoking Status Former Smoker Vaccine List Vaccine Type COVID-19, mRNA, LNP-S, PF, 30 mcg/0.3 mL dose ([employer]) 12/07/2020 12/28/2020 10/18/2021 influenza, high dose seasonal [...]
--- OUTSIDE RECORDS SUMMARY | 2022-07-11 11:37 | XMS_ITS | Clinical Summary ---
:1940 Author Organization [employer] [facility] [place] [address] Care Team Providers Name Role Phone David [...] Comments Blood Pressure 130/66 12/01/2021 1:34 PM [employer] Pulse 72 12/01/2021 1:34 PM [employer] Temperature 37.1 ??C (98.8 ??F) 12/01/2021 10:20 AM [employer] Respiratory Rate 16 12/01/2021 1:34 PM [employer] Oxygen Saturation 86% 12/01/2021 1:34 PM [employer] Inhaled Oxygen Concentration - - Weight 74.8 kg (165 lb) 12/01/2021 10:20 AM [employer] Height 167.6 cm (5' 6) 12/01/2021 10:20 AM [employer] Body Mass Index 26.63 12/01/2021 10:20 AM [employer] Plan of Treatment Health Maintenance Due Date [...] Group MEDICARE PART A MEDICARE PART A [id number] 2006-Present ATTN: CLAIMS - HB USE ONLY HB ONLY [address] [place] [address] UCARE MR [facility] MEDICARE [id number] 2019-Present [address] [place] [address] Care Teams Privacy Director Relationship Specialty Start Date End Date David Lu MD PCP - General Family Practice 10/20/[address] [place] [address] Sharifa [place], [place] [id number]
--- OUTSIDE RECORDS SUMMARY | 2022-07-11 11:38 | XMS_ITS | Encounter Summary ---
:1940 Author Care Team Providers Name Role Phone [facility] Primary Care Provider [phone] Deion Aguillon MD Primary Care Provider [phone] Reason for Visit Catheter Change - Nurse [...] 9:20AM Nurse_sched ule Lab Urinalysis, Dipstick 06/08/2022 [facility] ? Culture, Urine 06/08/2022 [place] [facility] Referral None [...] -[facility]: [address] ? ? UR ? Appearance clear clear Final [place] [facility]: [address] [address], [place] ? ? UR ? Glucose negative negative Final [place] [facility] mg/dL mg/dL [facility]: [address] ? ? UR ? Bilirubin negative negative Final [place] [facility]: [address] ? ? UR ? Ketones negative negative Final [place] [facility] mg/dL mg/dL [facility] [address] ? ? UR ? Sp. [place] 1.010 1.010-1.0 Final [place] [facility] 25 [facility]: [address] ? ? UR ? pH -[facility] 6.0 5.0-8.0 Final [place] [facility]: [address] ? ? UR ? Protein negative negative Final [place] [facility] mg/dL mg/dL [facility]: [address] ? ? UR ? Urobilinogen 0.2 normal Final [place] [facility]: [address] [address], [place] ? ? UR ? Nitrites negative negative Final [place] [facility]: [address] ? ? UR ABNORMA Blood large negative Final [place] -[facility]: [address] [address], [place] ? ? UR ABNORMA Leukocytes small negative Final [place] L -[facility]: [address] ? ? UR ? Performed by va X ? Final [place] [facility]: [address] ? ? UR ? Total Urine 30mls /mL ? Final [place] Volume (mL) [facility]: [address] [place] [address] 06/08/2022 Culture, URT ABNORMA Final Report microbiology ? Final [place] Urine L results [facility]: [address] [address], [place] Allergies Code Code System Name Reaction Severity Onset 733 RxNorm Ampicillin ? ? ? 408146 RxNorm Demerol ? ? ? Penicillin ? [...] ANAL/URINARY MUSCL E STUDY 01/03/2018 Cystometrogram W/svp group director&up Information not a vailable Notes: 01/03/2018 - [...] mRNA, LNP-S, PF, 30 mcg/0.3 mL dose ([employer]) 12/07/2020 12/28/2020 10/18/2021 influenza, high dose seasonal 08/14/2019 influenza, high-dose, quadrivalent 09/21/2021 influenza, seasonal, injectable 08/11/2008 08/26/2009 influenza, seasonal, injectable, preserv ative free 09/01/2011 pneumococcal polysaccharide PPV23 08/11/2008 Tdap 08/14/2019 Social History Tobacco Smoking Status Former Smoker Marital status Has tobacco cessation counseling been provided? Y Are you currently employed? N Could you be ? N Preferred Language Hungarian How much tobacco do you chew? none [...] ion of Urine Kimo Simmons, PAC: [address] [facility], [address] [phone], Ph. History of Present Illness None recorded. Review of Systems None recorded. Physical Exam None recorded.
--- OUTSIDE RECORDS SUMMARY | 2022-07-11 11:38 | XMS_ITS | Encounter Summary ---
:1940 Author Care Team Providers Name Role Phone [facility] Primary Care Provider [phone] Deion Aguillon MD Primary Care Provider [phone] Reason for Visit Monthly Catheter Change Assessment [...] Onset 733 RxNorm Ampicillin ? ? ? [id number] RxNorm Demerol ? ? ? Penicillin ? [...] ANAL/URINARY MUSCL E STUDY 01/03/2018 Cystometrogram W/vp global&up Information not a vailable Notes: 01/03/2018 - [...] mRNA, LNP-S, PF, 30 mcg/0.3 mL dose ([employer]) 12/07/2020 12/28/2020 10/18/2021 influenza, high dose seasonal 08/14/2019 influenza, high-dose, quadrivalent 09/21/2021 influenza, seasonal, injectable 08/11/2008 08/26/2009 influenza, seasonal, injectable, preserv ative free 09/01/2011 pneumococcal polysaccharide PPV23 08/11/2008 Tdap 08/14/2019 Social History Tobacco Smoking Status Former Smoker Marital status Has tobacco cessation counseling been provided? Y Are you currently employed? N Could you be ? N Preferred Language Surinamese How much tobacco do you chew? none [...] Erectile Dysfunction; Neurogenic Bladder Kimo Simmons, PAC: [address] [facility] [address], [place] [address], Ph. History of Present Illness ? Voiding [...]
[2022-07-11 11:42] LABS: Lactate* 2.7 mmol/L (0.5-1.9)
[2022-07-11 11:49] LABS: Hematocrit 34.2 % (37.0-53.0); Hemoglobin* 12.2 gm/dL (13.5-17.5); Immature Granulocytes Abs Auto 0.05 K/uL (0.00-0.30); Lymphocytes Percent Auto 2.4 % (20-44); Mean Corpuscular HGB Conc 36 gm/dL (32-36); Mean Corpuscular Hemoglobin 34 pg (26-34); Mean Corpuscular Volume 96 fL (80-100); Monocytes Percent Auto 5.3 % (0.0-11.0); Neutrophils Percent Auto 91.9 % (42.0-72.0); Platelet Count* 122 K/uL (140-440); RDW Coefficient of Variation % 13.9 % (11.5-15.5); Red Blood Count 3.57 m/uL (4.30-5.90); White Blood Count* 11.84 K/uL (4.50-11.00)
[2022-07-11 11:51] LABS: Slide Review Reflex No
--- NOTE | 2022-07-11 12:04 | W.PC.EDHO ---
Primary Language: Preferred Language: Orientation Status: [x] Alert & Oriented [] Slight Confusion [] Known Dx Dementia Transfers By: [x] Assist of 1 [] Assist of 2 [] Lift Active Medications Generic Name Dose Route Start Last Admin Trade Name Astrid PRN Reason Stop Dose Admin Sodium Chloride 1,000 mls @ 1,000 mls/hr 07/11/22 11:30 07/11/22 11:59 0.9 % Sodium Chloride 1000 Ml IV 07/11/22 12:29 Infused .Q1H ARIN Infusion Sodium Chloride 1,000 mls @ 1,000 mls/hr 07/11/22 11:30 07/11/22 12:00 0.9 % Sodium Chloride 1000 Ml IV 07/11/22 12:29 1,000 mls/hr .Q1H ARIN Administration Description of Symptoms ED Triage Present Problem Was here last evening with 1 day of fever and Description tiredness. Had positive blood cultures today and was asked to come back in. Had chills around 3am this morning and some diarrhea. gets short of breath with the chills. sats are 91% on roomair. Oxygen Administration Pulse Oximetry 91 Oxygen Delivery Method Room Air
[2022-07-11 12:06] LABS: Chloride* 104 mmol/L (96-114); Potassium* 3.6 mmol/L (3.6-5.1); Sodium* 133 mmol/L (135-149)
[2022-07-11 12:09] LABS: Blood Urea Nitrogen* 31 mg/dL (7-30); Carbon Dioxide* 18 mmol/L (20-32); Creatinine* 1.6 mg/dL (0.5-1.5); Est. Creatinine Clearance* 33.85; Estimated Glomerular Filt Rate 43 ml/min
[2022-07-11 12:10] LABS: Calcium* 8.5 mg/dL (8.4-10.6); Glucose* 182 mg/dL (60-115)
[2022-07-11 12:12] LABS: C Reactive Protein* 7.7 mg/dL (0.5-1.0)
--- NOTE | 2022-07-11 12:19 | ED.NURSE ---
Report to YANICK Samaniego. Pt to go to CCU 2.
[2022-07-11 12:31] LABS: PCR FLU A Negative PCR FLU A (Negative); PCR FLU B Negative PCR FLU B (Negative); PCR RSV Negative PCR RSV (Negative)
[2022-07-11 12:33] LABS: SARS PCR* Negative SARS-CoV-2 (Negative)
--- NOTE | 2022-07-11 12:49 | ED.NURSE ---
PT taken to CCU2.
[2022-07-11] MEDS: 0.9 % SODIUM CHLORIDE 1000 ml 1,000 ML 150 ML IV (13:35)
[2022-07-11 14:11] LABS: HCO3 VBG 21 mmol/L (21-28); Lactate* 1.5 mmol/L (0.5-1.9); PCO2 VBG 35 mmHG (40-50); PO2 VBG 38.8 mmHG (25-47); pH VBG 7.387 (7.32-7.43)
[2022-07-11] MEDS: 0.9 % SODIUM CHLORIDE 1000 ml 1,000 ML 500 ML IV (14:58)
--- NOTE | 2022-07-11 16:58 | PC.NURSE ---
PATIENT PLEASANT AND COOPERATIVE, ALERT AND ORIENTED, UP SBA WITH STEADY GAIT, LOW BPS SEE VITAL DOCUMENTATION MD AWARE BOLUS INFUSED, DECLINING LIGHTHEADEDNESS AND DIZZINESS WITH AMBULATION, DECLINING PAIN, AFEBRILE, IV PATENT, SUPRAPUBIC CATH PATENT AND DRAINING LIGHT MARIO URINE, SITE FREE OF REDNESS, FAMILY TO BRING IN SUPPLIES TO CHANGE CATHETER PER MD, NASIR AT BEDSIDE AND VERY SUPPORTIVE.
[2022-07-11] MEDS: ATORVASTATIN 10 MG TABLET 20 MG PO (20:29)
[2022-07-11] MEDS: ENOXAPARIN 40 MG/0.4 ML INJ SUBCUT (20:29)
--- NOTE | 2022-07-11 21:00 | PC.NURSE ---
Dr. Haley requested suprapubic catheter be changed if possible. has brought supplies in for change. and patient have concerns of changing suprapubic as there have been complications with changes in past. Discussed with Dr. Zhong and he has directed us to hold off on changing catheter until tomorrow morning in the event complications arise.
--- NOTE | 2022-07-11 21:06 | PC.NURSE ---
Dr. Zhong notified of pt.'s concerns regarding changing suprapubic catheter tonight. stated to defer changing catheter tonight, and to perform change in AM
[2022-07-11] MEDS: OMEPRAZOLE 20 MG CAPSULE DR PO (21:24)
[2022-07-11] MEDS: ACETAMINOPHEN 325 MG TABLET 650 MG PO (23:01)
[2022-07-12] VITALS (8 sets, daily range): BP systolic 95–136; BP diastolic 55–81; PULSE 64–73; RESP 18–20; TEMP 36.4–37.7; O2SAT 91–96
[2022-07-12] MEDS: 0.9 % SODIUM CHLORIDE 1000 ml 1,000 ML 150 ML IV ×3 (00:03→20:51)
--- NOTE | 2022-07-12 04:10 | PC.NURSE ---
update: BP 95/55 @ 0245, Dr. Carlton updated as FYI while admitting another pt @ 0400. Requested manual BP check and call back with result. Manual BP on L arm , called to Dr. Carlton @ 0170. New order: continue to monitor BP's and update if SBP < 90.
[2022-07-12] MEDS: LEVOTHYROXINE 88 MCG TABLET PO (06:07)
--- NOTE | 2022-07-12 06:23 | PC.NURSE ---
Shift 7p-7a: Pt. AOx4, following commands on RA. Pt.'s BP 95/55 during 0300 vital sign check, Dr. Carlton notified. Recheck BP with manual cuff pressure 92/62, notified. stated to notify if BP systolic < 90. BP recheck at 0600 90/60, pt. asymptomatic, denies dizziness/headache/N/V. Pt. receiving NS @ 150mL/hr and IV abx. Pt. spiked temp last night at 100 F, latest temp 98.5 F. Pt.'s suprapubic catheter to be changed this AM per Dr. Zhong, patent and draining well at this time.
[2022-07-12 07:19] LABS: Lactate* 0.7 mmol/L (0.5-1.9)
[2022-07-12 07:32] LABS: Basophils Absolute Auto 0.02 K/uL (0.00-0.30); Basophils Percent Auto 0.3 % (0.0-3.0); Eosinophils Absolute Auto 0.03 K/uL (0.00-0.50); Eosinophils Percent Auto 0.5 % (0.0-7.0); Hematocrit 29.4 % (37.0-53.0); Hemoglobin* 10.2 gm/dL (13.5-17.5); Immature Granulocytes Abs Auto 0.04 K/uL (0.00-0.30); Lymphocytes Percent Auto 12.2 % (20-44); Mean Corpuscular HGB Conc 35 gm/dL (32-36); Mean Corpuscular Hemoglobin 34 pg (26-34); Mean Corpuscular Volume 98 fL (80-100); Monocytes Percent Auto 10.9 % (0.0-11.0); Neutrophils Percent Auto 75.5 % (42.0-72.0); Platelet Count* 83 K/uL (140-440); RDW Coefficient of Variation % 14.6 % (11.5-15.5); White Blood Count* 6.32 K/uL (4.50-11.00)
[2022-07-12 07:50] LABS: Albumin* 2.4 g/dL (3.3-5.0); Chloride* 115 mmol/L (96-114); Sodium* 138 mmol/L (135-149)
[2022-07-12 07:51] LABS: Potassium* 3.6 mmol/L (3.6-5.1)
[2022-07-12 07:52] LABS: Creatinine* 1.1 mg/dL (0.5-1.5); Est. Creatinine Clearance* 49.24; Estimated Glomerular Filt Rate 67 ml/min
[2022-07-12 07:53] LABS: Alanine Aminotransferase* 23 U/L (4-50); Alkaline Phosphatase* 81 U/L (40-150); Aspartate Amino Transferase* 33 U/L (12-35); Bilirubin Total* 1.4 mg/dL (0.1-1.5); Blood Urea Nitrogen* 23 mg/dL (7-30); Carbon Dioxide* 18 mmol/L (20-32); Total Protein* 4.7 g/dL (6.0-8.3)
[2022-07-12 07:54] LABS: Calcium* 7.4 mg/dL (8.4-10.6); Glucose* 97 mg/dL (60-115)
[2022-07-12 07:55] LABS: Slide Review Reflex No
[2022-07-12 08:07] LABS: C Reactive Protein* 14.4 mg/dL (0.5-1.0)
--- NOTE | 2022-07-12 08:21 | CRLHL7_ITS ---
For Patients: As a result of the Century Cures Act, medical imaging exams and procedure reports are released immediately into your electronic medical record. You may view this report before your referring provider. If you have questions, please contact your health care provider. INDICATION: Bacteremia. COMPARISON: None TECHNIQUE: CT examination of the abdomen and pelvis was performed without intravenous contrast. Thin section axial images were obtained from the lung bases through the pubic symphysis. Oral contrast was not administered. Please note that all CT scans at this facility use dose modulation, iterative reconstruction, and/or weight-based dosing when appropriate to reduce radiation dose to as low as reasonably achievable. FINDINGS: LUNG BASES: The heart is enlarged at the lung bases. There are atherosclerotic vascular calcifications. Small bilateral effusions. Bibasilar airspace process probably atelectasis. LIVER/BILIARY SYSTEM:The liver is normal in size. No definite focal mass. Pneumobilia presumably due to prior sphincterotomy or other biliary procedure. This is usually not a pathologic finding. The gallbladder is surgically absent. ADRENALS: Normal non-contrast appearance KIDNEYS, URETERS and BLADDER:The kidneys are normal in size. There is no hydronephrosis or hydroureter. A Caraballo catheter enters the bladder via the suprapubic approach. The prostate is profoundly enlarged measuring 13.0 x 7.3 x 7.4 centimeters. There are perivesical and para prostatic inflammatory changes which may be due to infection SPLEEN:Normal non-contrast appearance. PANCREAS: Normal non-contrast appearance. RETROPERITONEUM and MESENTERY: There is no mass, adenopathy or aortic aneurysm. Atherosclerotic vascular calcifications GASTROINTESTINAL SYSTEM: Heterogeneous masslike fullness identified in the region of the duodenal bulb, 2nd portion of the duodenum and the pancreatic head. This could be inflammatory or malignant process of the duodenum or pancreatic head. This is very difficult to further evaluate without oral or intravenous contrast. Appropriate follow-up advised. There is a right inguinal hernia admitting small-bowel but this is not currently obstructive. This does not appear to be ischemic PELVIS: Abnormal bladder and prostate as discussed above. OSSEOUS STRUCTURES and ABDOMINAL WALL: No destructive process of bone. Right inguinal hernia as discussed above OTHER: No free fluid or free air. IMPRESSION: 1. Heterogeneous masslike fullness identified in the region of the duodenal bulb, 2nd portion the duodenum and the pancreatic head. This is probably an inflammatory process of the duodenum though malignant process of the duodenum or an inflammatory or malignant process of the pancreatic head is possible. Difficult to evaluate without contrast. Appropriate follow-up advised 2. Profound enlarged prostate. Suprapubic catheter within the bladder. Perivesicular and periprostatic inflammatory changes could be related to infection. No hydronephrosis or hydroureter 3. Other nonacute appearing findings as above Please note that all CT scans at this facility use dose modulation, iterative reconstruction, and/or weight-based dosing when appropriate to reduce radiation dose to as low as reasonably achievable. Dictated by Basim Cook MD @ 07/12/2022 9:42:17 AM (Electronically Signed)
[2022-07-12] MEDS: 0.9 % SODIUM CHLORIDE 500 ML 500 ML IV (09:31)
--- NOTE | 2022-07-12 11:33 | CRLHL7_ITS ---
For Patients: As a result of the Century Cures Act, medical imaging exams and procedure reports are released immediately into your electronic medical record. You may view this report before your referring provider. If you have questions, please contact your health care provider. INDICATION: Abdominal mass seen on CT. TECHNIQUE: MRI of the abdomen was performed with the following sequences: axial and coronal HASTE, axial T2 fat saturated, axial diffusion, axial T1 in and out of phase, 3-point Rivas, multiecho T2*, axial and coronal 3D T1 weighted before and after intravenous contrast administration. Contrast: 15 mL of Dotarem. COMPARISON: CT of the abdomen pelvis from 07/12/2022. FINDINGS: Evaluation is limited by patient motion. : Lower chest: Small bilateral pleural effusions. The included heart is mildly enlarged. Liver: No significant signal dropout between in-and opposed stasis suggests steatosis. T2 hyperintense lesion in the caudate is nonenhancing and compatible with a simple cyst. Signal void along the intrahepatic bile ducts is suggestive of pneumobilia. No enhancing lesions. Gallbladder and bile ducts: Surgically absent gallbladder. Normal caliber common bile duct. Spleen: Unremarkable. Pancreas: Prominence of the pancreatic head, without enhancing or diffusion restricting mass. The pancreatic duct is normal in caliber. Small amount of peripancreatic stranding, particularly along the head. Adrenal glands: Unremarkable. No nodules. Kidneys and Ureters: Symmetric cortical enhancement. T2 hyperintense nonenhancing lesion in the left renal cortex is compatible with a cyst. No hydronephrosis on either side. Lymph Nodes and Retroperitoneum: Unremarkable. Vasculature: Unremarkable. GI tract: Unremarkable. Normal in caliber. Peritoneum/Abdominal Wall: Unremarkable. No mass or infiltration. No free air or free fluid. Fat containing right oblique hernia. Notably enlarged heterogeneous prostate is partially included in the field of view. Bones: Several vertebral bodies show T2 hyperintense and nonenhancing areas, suggestive of vertebral body hemangiomas. No abnormal marrow signal. IMPRESSION: 1. No abdominal mass as clinically queried. Prominence of the pancreatic head with adjacent stranding could indicate pancreatitis in the appropriate clinical setting. Suggest correlation with serum lipase, if not already performed. 2. Partially included in the field of view is a notably enlarged and heterogeneous prostate. 3. No other significant MRI abnormality in the abdomen. Dictated by Angel Ross MD @ 07/12/2022 1:32:00 PM (Electronically Signed)
--- NOTE | 2022-07-12 11:39 | PM.IMPN1 ---
Progress Note: A&P Assessment and plan (1) Sepsis associated hypotension: Problem details: Vancomycin and Imipenem/Cilastin initiated in ED on 07/11. Status: Acute Assessment and Plan: Lactate within normal limits today, hypotension has improved with IVF boluses. Stop Vancomycin today, continue Primaxin. Await formal sensitivities. Source of sepsis remains unclear; urine culture exhibits no growth to date. We will obtain a CT scan of abdomen and pelvis to evaluate other potential sources of infection. (2) Bacteremia: Status: Acute Assessment and Plan: See above. (3) History of CVA (cerebrovascular accident) without residual deficits: Status: Acute (4) BPH loc w urin obs/LUTS: Status: Acute (5) Essential (primary) hypertension: Status: Acute Assessment and Plan: Holding home lisinopril dosing secondary to hypotension (6) Suprapubic catheter: Problem details: Last changed as an outpatient on , 07/06. Changed by our nursing staff on 07/12. Status: Acute Assessment and Plan: Catheter changed today given possible source of bacteremia. (7) ALEXANDRA (acute kidney injury): Status: Acute Assessment and Plan: Resolved after IV fluid administration, continue to follow. (8) Pancreatic mass: Status: Acute Assessment and Plan: Incidental finding on CT scan. Reviewed with radiologist, MRI recommended to further evaluate. Plan Per above. Lovenox for prophylaxis. Patient lives locally with , plans to go home upon discharge when medically stable. Time Spent With Patient Total time spent: 35, greater than 50% in coordination of care, updates, and planning. Subjective Date Seen: 07/12/22 Interval history: No acute events overnight. Check has tolerated IV fluids and antibiotics well, he is asymptomatic from his intermittent hypotension. He has not had fevers or tachycardia. Repeat blood cultures obtained yesterday were positive for Gram-negative rods, we are awaiting formal identification. Urine culture exhibits no growth to date. Exam Narrative: Exam Narrative: GEN: Alert and oriented, answering questions appropriately HEENT: Normal external ears, EOMIs bilaterally CV: RRR, No concerning murmurs, rubs, or gallops R: LCTA bilaterally without concerning wheezing, rales, or rhonchi Abdomen:? Soft, nontender Ext: wwp, no concerning edema Skin: No concerning skin lesions or rashes on exposed skin Neuro: Nonfocal Psych: Appropriate? Const: Vital Signs, click to edit/add: Vital Signs - 24 hr 07/11/22 12:03 07/11/22 12:54 07/11/22 12:17 Temperature 98.1 F Pulse Rate 69 71 Pulse Rate [Left] 73 Pulse Rate [Right] Respiratory Rate 18 Blood Pressure 95/54 L Blood Pressure [Le ft Arm] Pulse Oximetry 92 95 94 Oxygen Delivery [facility] Room Air 07/11/22 12:21 07/11/22 13:48 07/11/22 15:00 Temperature Pulse Rate 71 Pulse Rate [Left] Pulse Rate [Right] Respiratory Rate 18 18 Blood Pressure Blood Pressure [Le ft Arm] Pulse Oximetry 94 [facility] 07/[facility]/22 15:00 07/11/22 15:00 07/11/22 17:18 Temperature 98.3 F Pulse Rate Pulse Rate [Left] Pulse Rate [Right] 70 Respiratory Rate 18 18 Blood Pressure Blood Pressure [Le ft Arm] 97/57 L 98/59 L Pulse Oximetry 94 94 Oxygen Delivery [facility] Room Air Room Air 07/11/22 19:00 07/11/22 21:35 07/11/22 22:31 Temperature 99.3 F Pulse Rate Pulse Rate [Left] Pulse Rate [Right] 70 74 Respiratory Rate 18 18 Blood Pressure Blood Pressure [Le ft Arm] 101/59 L 110/59 L Pulse Oximetry 94 [facility] 07/11/22 22:31 07/11/22 23:01 07/11/22 23:00 Temperature 100 F H 100 F H Pulse Rate Pulse Rate [Left] Pulse Rate [Right] 74 Respiratory Rate 18 18 Blood Pressure Blood Pressure [Le ft Arm] 101/58 L Pulse Oximetry 93 92 [facility] 07/12/22 00:02 07/12/22 02:48 07/12/22 09:09 Temperature 98.8 F 98.5 F Pulse Rate Pulse Rate [Left] Pulse Rate [Right] 68 Respiratory Rate 18 Blood Pressure Blood Pressure [Le ft Arm] 95/55 L Pulse Oximetry 94 94 [facility] Room Air 07/12/22 09:09 07/12/22 10:56 Temperature 97.5 F L 97.5 F L Pulse Rate Pulse Rate [Left] Pulse Rate [Right] 64 64 Respiratory Rate 20 20 Blood Pressure Blood Pressure [Le ft Arm] 101/55 L 108/61 Pulse Oximetry 94 93 Oxygen Delivery [facility]od Room Air Room Air Labs Labs: Laboratory Results - last 24 hr 07/11/22 07/11/22 07/11/22 11:05 11:05 11:05 WBC 11.84 H RBC 3.57 L Hgb 12.2 L Hct 34.2 L MCV 96 MCH 34 MCHC 36 RDW Coeff of Loni 13.9 Plt Count 122 L Neut % (Auto) 91.9 H Lymph % (Auto) 2.4 L [place] % (Auto) 5.3 Eos % (Auto) 0.0 Baso % (Auto) 0.0 Neut # (Auto) 10.90 H Lymph # (Auto) 0.30 L [place] # (Auto) 0.60 Eos # (Auto) 0.00 Baso # (Auto) 0.00 Abs Immat Gran (auto) 0.05 VBG pH VBG pCO2 VBG pO2 VBG HCO3 Sodium 133 L Potassium 3.6 Chloride 104 Carbon Dioxide 18 L BUN 31 H Creatinine 1.6 H Estimated Creat Clear 33.85 Estimated GFR 43 Glucose 182 H Lactate 2.7 H Calcium 8.5 Total Bilirubin AST ALT Alkaline Phosphatase C-Reactive Protein 7.7 H Total Protein Albumin SARS-CoV-2 (PCR) Influenza Type A (PCR) Influenza Type B (PCR) RSV (PCR) 07/11/22 07/11/22 07/12/22 11:35 14:06 07:11 WBC 6.32 RBC 3.00 L Hgb 10.2 L Hct 29.4 L MCV 98 MCH 34 MCHC 35 RDW Coeff of Loni 14.6 Plt Count 83 L Neut % (Auto) 75.5 H Lymph % (Auto) 12.2 L [place] % (Auto) 10.9 Eos % (Auto) 0.5 Baso % (Auto) 0.3 Neut # (Auto) 4.80 Lymph # (Auto) 0.80 L [place] # (Auto) 0.70 Eos # (Auto) 0.03 Baso # (Auto) 0.02 Abs Immat Gran (auto) 0.04 VBG pH 7.387 VBG pCO2 35 L VBG pO2 38.8 VBG HCO3 21 Sodium Potassium Chloride Carbon Dioxide BUN Creatinine Estimated Creat Clear Estimated GFR Glucose Lactate 1.5 Calcium Total Bilirubin AST ALT Alkaline Phosphatase C-Reactive Protein Total Protein Albumin SARS-CoV-2 (PCR) Negative SARS-CoV-2 Influenza Type A (PCR) Negative PCR FLU A Influenza Type B (PCR) Negative PCR FLU B RSV (PCR) Negative PCR RSV 07/12/22 07/12/22 07:11 07:11 WBC RBC Hgb Hct MCV MCH MCHC RDW Coeff of Loni Plt Count Neut % (Auto) Lymph % (Auto) [place] % (Auto) Eos % (Auto) Baso % (Auto) Neut # (Auto) Lymph # (Auto) [place] # (Auto) Eos # (Auto) Baso # (Auto) Abs Immat Gran (auto) VBG pH VBG pCO2 VBG pO2 VBG HCO3 Sodium 138 Potassium 3.6 Chloride 115 H Carbon Dioxide 18 L BUN 23 Creatinine 1.1 Estimated Creat Clear 49.24 Estimated GFR 67 Glucose 97 Lactate 0.7 Calcium 7.4 L Total Bilirubin 1.4 AST 33 ALT 23 Alkaline Phosphatase 81 C-Reactive Protein 14.4 H Total Protein 4.7 L Albumin 2.4 L SARS-CoV-2 (PCR) Influenza Type A (PCR) Influenza Type B (PCR) RSV (PCR)
[2022-07-12 14:07] LABS: Lipase* 167 U/L (23-300)
[2022-07-12] MEDS: ACETAMINOPHEN 325 MG TABLET 650 MG PO (14:40)
--- NOTE | 2022-07-12 15:35 | REH.OT ---
Orders received for OT eval and treat. Patient sleeping this afternoon after a morning with testing and nursing asked to allow pt to rest. Will assess in the am for any OT needs
--- NOTE | 2022-07-12 17:54 | PC.NURSE ---
Shift Summary: Patient pleasant and cooperative. Up independently, denies dizziness/lightheadedness with ambulation. Given bolus 500cc x1. Vitals stable and WNL, t-max 98.1. Tolerating regular diet, denies nausea. Was able to rest for 2 hours today, required PRN acetaminophen for generalized discomfort, appeared to be asleep shortly after receiving medication. New suprapubic catheter placed with 5cc used to inflate balloon, previous catheter removed with catheter tip intact.
[2022-07-12] MEDS: ENOXAPARIN 40 MG/0.4 ML INJ SUBCUT (20:50)
[2022-07-12] MEDS: OMEPRAZOLE 20 MG CAPSULE DR PO (20:50)
[2022-07-12] MEDS: ATORVASTATIN 10 MG TABLET 20 MG PO (20:50)
[2022-07-13 01:00] VITALS: RESP 18; O2SAT 96
[2022-07-13] MEDS: ACETAMINOPHEN 325 MG TABLET 650 MG PO (01:28)
[2022-07-13 01:30] VITALS: TEMP 37.1
[2022-07-13 03:00] VITALS: BP 129/71; PULSE 70; RESP 18; TEMP 37.1; O2SAT 90
[2022-07-13] MEDS: 0.9 % SODIUM CHLORIDE 1000 ml 1,000 ML 150 ML IV (04:35)
--- NOTE | 2022-07-13 05:11 | PC.NURSE ---
[id number]: patient up ad con in room, afebrile, VS as charted. patient c/o generalized achiness that resolved with Tylenol around 0200. suprapubic catheter patent and draining dark ilya urine.
[2022-07-13] MEDS: LEVOTHYROXINE 88 MCG TABLET PO (06:08)
[2022-07-13 07:00] LABS: Ionized Calcium* 1.12 mmol/L (1.11-1.30)
[2022-07-13 07:01] LABS: Basophils Absolute Auto 0.01 K/uL (0.00-0.30); Basophils Percent Auto 0.2 % (0.0-3.0); Eosinophils Absolute Auto 0.09 K/uL (0.00-0.50); Eosinophils Percent Auto 1.5 % (0.0-7.0); Hematocrit 30.3 % (37.0-53.0); Hemoglobin* 10.5 gm/dL (13.5-17.5); Immature Granulocytes Abs Auto 0.02 K/uL (0.00-0.30); Lymphocytes Percent Auto 14.5 % (20-44); Mean Corpuscular HGB Conc 35 gm/dL (32-36); Mean Corpuscular Hemoglobin 34 pg (26-34); Mean Corpuscular Volume 97 fL (80-100); Monocytes Percent Auto 13.5 % (0.0-11.0); Neutrophils Absolute Auto 4.34 K/uL (1.7-7.0); Platelet Count* 116 K/uL (140-440); RDW Coefficient of Variation % 14.6 % (11.5-15.5); Red Blood Count 3.11 m/uL (4.30-5.90)
[2022-07-13 07:05] LABS: Slide Review Reflex No
[2022-07-13 07:31] LABS: Albumin* 2.5 g/dL (3.3-5.0); Chloride* 115 mmol/L (96-114); Potassium* 3.7 mmol/L (3.6-5.1); Sodium* 138 mmol/L (135-149)
[2022-07-13 07:33] LABS: Bilirubin Total* 1.2 mg/dL (0.1-1.5); Carbon Dioxide* 16 mmol/L (20-32); Creatinine* 0.9 mg/dL (0.5-1.5); Est. Creatinine Clearance* 54.17; Estimated Glomerular Filt Rate 86 ml/min
[2022-07-13 07:34] LABS: Alanine Aminotransferase* 25 U/L (4-50); Alkaline Phosphatase* 136 U/L (40-150); Aspartate Amino Transferase* 32 U/L (12-35); Blood Urea Nitrogen* 18 mg/dL (7-30); Calcium* 7.7 mg/dL (8.4-10.6); Glucose* 102 mg/dL (60-115); Total Protein* 4.9 g/dL (6.0-8.3)
[2022-07-13 07:46] VITALS: BP 147/80; PULSE 72; RESP 20; TEMP 36.4; O2SAT 93
[2022-07-13 09:08] VITALS: RESP 20; O2SAT 93
[2022-07-13] MEDS: levoFLOXacin 750 MG TABLET PO (09:28)
--- NOTE | 2022-07-13 10:10 | REH.OT ---
Per nursing, patient moving well and up independently. When patient approached today, he declined OT intervention saying I'm fine and plan to home today.
[2022-07-13 11:30] VITALS: BP 143/84; PULSE 67; RESP 18; TEMP 36.8; O2SAT 95
--- NOTE | 2022-07-13 11:45 | PM.DS1 ---
DS: Providers Provider Date Seen: 07/13/22 Date of admission: 07/11/22 14:04 Primary care physician: Deion Aguillon MD Admitting Clinician: Kay Haley MD Consults: Physical and Occupational therapy consulted for weakness. [place]. Rajwinder Alexandra [place] [facility] [place]). Attending Physician on discharge: Kay Haley MD Date of Discharge: 07/13/22 DS: Diagnosis Discharge Diagnosis (1) Suprapubic catheter: Status: Acute Problem details: Last changed as an outpatient on , 07/06. Changed by our nursing staff on 07/12. (2) Bacteremia: Status: Acute (3) Sepsis associated hypotension: Status: Acute Problem details: Vancomycin and Imipenem/Cilastin initiated in ED on 07/11. (4) ALEXANDRA (acute kidney injury): Status: Acute (5) Pancreatic mass: Status: Acute DS: Summary Hospital Course Hospital Course: Ray is an 82-year-old male was hospitalized for Gram-negative bacteremia, presumably secondary to UTI given risk factor of suprapubic catheter in place. Interestingly, while his blood culture grew out Klebsiella, his urine culture grew Kocuria. No other nidus of infection was noted during stay. Patient had a CT scan of abdomen pelvis performed on hospital day 1 that exhibited a pancreatic mass. MRI obtained which was reassuring. Lipase normal. Of note, patient has a history of acute hemorrhagic pancreatitis requiring lengthy [facility] hospital stay approximately 50 years ago. Patient did have hypotension upon admission that responded very well to IV fluid boluses. His lisinopril was held throughout stay, and his systolic blood pressure was in the 140s on day of discharge. Admission creatinine was 1.6, presumably pre renal azotemia secondary to hypotension. His creatinine was normal on day of discharge. Ray remained ambulatory and was seen by PT and OT. No discharge needs were identified. Reviewed blood culture results with [facility] [place] physician, who recommended a discharge fluoroquinolone given sensitivities. EKG did not exhibit QT abnormalities, and we discussed the risk and benefit of Levaquin upon discharge. He was discharged home with in improved condition. He will see his PCP next week for a recheck and BMP. He will see Urology as previously scheduled (monthly for suprapubic catheter changes). Discussed return precautions. Status at Discharge Functional status at discharge: independent ambulation Overall status at discharge: patient is progressing back to baseline Time Spent with Patient Time attestation: Total time spent providing and/or coordinating discharge services: Time spent: Greater than 30 minutes Exam Narrative: Exam Narrative: GEN: Alert and oriented, answering questions appropriately HEENT: Normal external ears, EOMIs bilaterally CV: RRR, No concerning murmurs, rubs, or gallops R: LCTA bilaterally without concerning wheezing, rales, or rhonchi Ext: wwp, no concerning edema Neuro: Nonfocal, no resting tremor, ambulating without assistance Psych: Appropriate Const: Vital Signs, click to edit/add: Vital Signs - 24 hr 07/12/22 14:46 07/12/22 17:24 07/12/22 19:00 Temperature 98.1 F 98.7 F Pulse Rate [Right] 73 73 Respiratory Rate 18 18 Blood Pressure [Le ft Arm] 118/81 126/70 Pulse Oximetry 91 91 [facility] 07/12/22 23:00 07/12/22 23:00 07/13/22 01:30 Temperature 99.8 F H 98.8 F Pulse Rate [Right] 70 70 Respiratory Rate 18 18 Blood Pressure [Le ft Arm] 136/78 Pulse Oximetry 96 [facility] 07/13/22 01:00 07/13/22 03:00 07/13/22 07:46 Temperature 98.8 F 97.6 F Pulse Rate [Right] 70 72 Respiratory Rate 18 18 20 Blood Pressure [Le ft Arm] 129/71 147/80 H Pulse Oximetry 96 90 93 [facility] Room [facility] Room Air 07/13/22 09:08 07/13/22 11:30 Temperature 98.2 F Pulse Rate [Right] 67 Respiratory Rate 20 18 Blood Pressure [Le ft Arm] 143/84 H Pulse Oximetry 93 95 [facility] DS: Data Data Completed and Pending Labs on day of discharge: Labs from last 24 hours 07/13/22 07/13/22 07/13/22 06:50 06:50 06:50 WBC 6.20 RBC 3.11 L Hgb 10.5 L Hct 30.3 L MCV 97 MCH 34 MCHC 35 RDW Coeff of Loni 14.6 Plt Count 116 L Neut % (Auto) 70.0 Lymph % (Auto) 14.5 L [place] % (Auto) 13.5 H Eos % (Auto) 1.5 Baso % (Auto) 0.2 Neut # (Auto) 4.34 Lymph # (Auto) 0.90 [place] # (Auto) 0.80 Eos # (Auto) 0.09 Baso # (Auto) 0.01 Abs Immat Gran (auto) 0.02 Sodium 138 Potassium 3.7 Chloride 115 H Carbon Dioxide 16 L BUN 18 Creatinine 0.9 Estimated Creat Clear 54.17 Estimated GFR 86 Glucose 102 Calcium 7.7 L Ionized Calcium Rizwan 1.12 Total Bilirubin 1.2 AST 32 ALT 25 Alkaline Phosphatase 136 Total Protein 4.9 L Albumin 2.5 L Lipase 07/12/22 07:11 WBC RBC Hgb Hct MCV MCH MCHC RDW Coeff of Loni Plt Count Neut % (Auto) Lymph % (Auto) [place] % (Auto) Eos % (Auto) Baso % (Auto) Neut # (Auto) Lymph # (Auto) [place] # (Auto) Eos # (Auto) Baso # (Auto) Abs Immat Gran (auto) Sodium Potassium Chloride Carbon Dioxide BUN Creatinine Estimated Creat Clear Estimated GFR Glucose Calcium Ionized Calcium [place] Total Bilirubin AST ALT Alkaline Phosphatase Total Protein Albumin Lipase 167 Preliminary micro results at discharge 07/11/22 12:13 Blood Culture - Preliminary Blood Gram negative gavino Discharge Plan Discharge Disposition: Home, Self-Care Date of Admission: 07/11/22 14:04 Attending Provider on Discharge: Kay Haley Primary Care Provider: Deion Aguillon Condition: Improved Anticipated Discharge Date/Time: 07/13/22 13:00 Discharge Medications: New acetaminophen 325 mg Tablet 650 mg PO Q6H PRNQty: 30 0RF levofloxacin 750 mg Tablet 750 mg PO Q24H 9 Days Qty: 9 0RF Continued atorvastatin 20 mg tablet 20 mg PO HS Label Comments: TAKE ONE TABLET BY MOUTH AT BEDTIME levothyroxine 88 mcg tablet 88 mcg PO DAILY Label Comments: TAKE ONE TABLET BY MOUTH ONCE DAILY esomeprazole magnesium [Nexium] 20 mg capsule,delayed release(DR/EC) Held lisinopril 20 mg tablet 20 mg PO DAILY Hold Instructions: Resume on 07/15/22. Check BP at home on Sunday (07/15). If your BP is greater than 140/80, restart your Lisinopril Label Comments: TAKE 1 TABLET BY MOUTH ONCE DAILY. Discharge Orders: Discharge Order (Routine); Ordered 07/13/22 Ordered By: Kay Haley Patient Education: Levofloxacin (By mouth), Bacteremia (GEN) Activity Restrictions/Additional Instructions: You can restart Lisinopril over the weekend if your BP remains greater than 140/80. Take your antibiotics once/day for 9 more days (10 days total). Take a probiotic or eat yogurt once/day while on antibiotics. No strenuous activity while on antibiotics. You should call Dr. Aguillon or present to ED if you have any recurrent fevers, skin changes, or other concerns. Activity Level: Activity as Tolerated and No strenuous activity Discharge Diet: Regular Follow Up Appointments: Ally Ritchie MD [Staff Physician] - 07/18/22 9:30 am Deion Aguillon MD [Primary Care Provider] - (PCP unavailable ) Forms: [employer] Info Instructions
--- NOTE | 2022-07-13 11:55 | PC.NURSE ---
Discharge: patient pleasant and cooperative. Up independently, vitals stable and WNL, afebrile. Patient denies pain or SOB. Discharge instructions and follow ups reviewed, questions answered as needed. IV removed with catheter intact. Patient discharged from unit @ 1145 via wheelchair, to drive home.
== END 2022-07-13 11:45 | disposition home or self-care (01) | DRG 872 ==
LOC: ED 11:34 → MEDSURG 12:37
PROVIDERS: Admitting Provider Family Medicine; Emergency Provider Family Medicine; PCP Internal Medicine; Visit Provider Family Medicine
DX: A41.59 Other Gram-negative sepsis (principal); T83.511A Infection and inflammatory reaction due to indwelling urethral catheter, initial encounter; N39.0 Urinary tract infection, site not specified; N17.9 Acute kidney failure, unspecified; N13.8 Other obstructive and reflux uropathy; R65.20 Severe sepsis without septic shock; B96.89 Other specified bacterial agents as the cause of diseases classified elsewhere; K86.89 Other specified diseases of pancreas; I95.89 Other hypotension; N31.9 Neuromuscular dysfunction of bladder, unspecified; N40.1 Benign prostatic hyperplasia with lower urinary tract symptoms; I10 Essential (primary) hypertension; Z86.73 Personal history of transient ischemic attack (TIA), and cerebral infarction without residual deficits; E03.9 Hypothyroidism, unspecified
CPT/HCPCS: 36415; 74176; 74183; 80048; 80053; 82330; 82803; 83605; 83690; 85025; 86140; 87040; 87186; 87502; 87634; 87635; 93005; 94761; 97161; 99284; 99285; 99291; A9270; A9575; J0610; J0743; J1650; J3370; J7030; J7050; J7120

== ENCOUNTER 2022-07-18 09:13 | Outpatient (CLI) | payer MEDICARE, SELFPAY ==
--- OUTSIDE RECORDS SUMMARY | 2022-07-18 09:20 | XMS_ITS | Clinical Summary ---
:1940 Author Organization [employer] [employer] [facility] [place] [address] Care Team Providers Name Role Phone David [...] Comments Blood Pressure 130/66 12/01/2021 1:34 PM COLLECTION TELLER Pulse 72 12/01/2021 1:34 PM COLLECTION TELLER Temperature 37.1 ??C (98.8 ??F) 12/01/2021 10:20 AM COLLECTION TELLER Respiratory Rate 16 12/01/2021 1:34 PM COLLECTION TELLER Oxygen Saturation 86% 12/01/2021 1:34 PM COLLECTION TELLER Inhaled Oxygen Concentration - - Weight 74.8 kg (165 lb) 12/01/2021 10:20 AM COLLECTION TELLER Height 167.6 cm (5' 6) 12/01/2021 10:20 AM COLLECTION TELLER Body Mass Index 26.63 12/01/2021 10:20 AM COLLECTION TELLER Plan of Treatment Health Maintenance Due Date [...] Group MEDICARE PART A MEDICARE PART A [id number] 2006-Present ATTN: CLAIMS - HB USE ONLY HB ONLY [address] [facility] [place] [address] [address] [facility] MEDICARE [id number] 2019-Present [address] [place] [address] Care Teams Assembler Wet Wash Relationship Specialty Start Date End Date David Lu MD PCP - General Family Practice 10/20/[address] [place] [address] [place], [place] [id number]
--- OUTSIDE RECORDS SUMMARY | 2022-07-18 09:20 | XMS_ITS | Encounter Summary ---
:1940 Author Care Team Providers Name Role Phone [facility] Primary Care Provider [phone] Deion Aguillon MD Primary Care Provider [phone] Reason for Visit Lab/Nursing Visit Assessment and [...] Onset 733 RxNorm Ampicillin ? ? ? 427283 RxNorm Demerol ? ? ? Penicillin ? [...] - ANAL/URINARY MUSCL E STUDY 01/03/2018 Cystometrogram W/microbiology lab technician&up Information not a vailable Notes: 01/03/2018 - [...] mRNA, LNP-S, PF, 30 mcg/0.3 mL dose ([employer] [employer]) 12/07/2020 12/28/2020 10/18/2021 influenza, high dose seasonal 08/14/2019 influenza, high-dose, quadrivalent 09/21/2021 influenza, seasonal, injectable 08/11/2008 08/26/2009 influenza, seasonal, injectable, preserv ative free 09/01/2011 pneumococcal polysaccharide PPV23 08/11/2008 Tdap 08/14/2019 Social History Tobacco Smoking Status Former Smoker Marital status Has tobacco cessation counseling been provided? Y Are you currently employed? N Could you be ? N Preferred Language Azerbaijani How much tobacco do you chew? none [...] 07/06/2022 Retention of Urine Lola Cadena, PA: [address] [place] [address], [address] [address], Ph. 06/08/2022 Urinary Tract Infectious Disease; Retent ion of Urine Kimo Simmons, PAC: [address] [facility] [address] [address], Ph. History of Present Illness None recorded. Review of Systems None recorded. Physical Exam None recorded.
--- OUTSIDE RECORDS SUMMARY | 2022-07-18 09:20 | XMS_ITS ---
:1940 Author Care Team Providers Name Role Phone [facility] Primary Care Provider [phone] FAMILIA AALMO MD Primary Care Provider [phone] Allergies Code Code System Name Reaction Severity Status Onset 733 RxNorm Ampicillin ? ? Active ? [id number] RxNorm Demerol ? ? Active ? 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 ? UR ? Appearance clear clear Final [place] [facility]: [address] [address], [place] ? ? UR ? Glucose negative negative Final [place] [facility] mg/dL mg/dL [facility]: [address] ? ? UR ? Bilirubin negative negative Final [place] [facility]: [address] ? ? UR ? Ketones negative negative Final [place] [facility] mg/dL mg/dL [facility]: [address] [address], [place] ? ? UR ? Sp. [place] 1.010 1.010-1.0 Final [place] [facility] 25 [facility]: [address] ? ? UR ? pH -[facility] 6.0 5.0-8.0 Final [place] [facility]: [address] ? ? UR ? Protein negative negative Final [place] [facility] mg/dL mg/dL [facility]: [address] ? ? UR ? Urobilinogen 0.2 normal Final [place] [facility]: [address] ? ? UR ? Nitrites negative negative Final [place] [facility]: [address] [address], [place] ? ? UR ABNORMA Blood large negative Final [place] -[facility]: [address] ? ? UR ABNORMA Leukocytes small negative Final [place] -[facility]: [address] ? ? UR ? Performed by va X ? Final [place] [facility]: [address] ? ? UR ? Total Urine 30mls /mL ? Final [place] Volume (mL) [facility]: [address] [place] [address] 06/08/2022 Urinalysis, ABNORMA U-WBC 2 - 5 [hpf] 0 - 2 Fi nal [place] Microscopic L [hpf] [facility]: [address] ? ? ? U-RBC 0 - 2 [hpf] 0 - 2 Final [place] [hpf] [facility]: [address] [place] [address], [place] ? ? ABNORMA Bacteria small [hpf] negative Final [place] L [hpf] [facility]: [address] [place] [address], [place] ? ? ? Squamous Epi small /lpf negative, Fin al Becky small [facility] - /[facility]: [address] [place] [address], [place] 06/08/2022 Culture, URT ABNORMA Final Report microbiology ? Final [place] Urine L results [facility]: [address] [place] [address], [place] Past Encounters 07/06/2022 Retention of Urine Lola Cadena PA: [address] [place] [phone], Ph. 06/08/2022 Urinary Tract Infectious Disease; Retent ion of Urine Kimo Simmons, PAC: [address] [place], [place] [address]te [address] [place] [phone], Ph. 05/04/2022 Primary Erectile Dysfunction; Neurogenic Bladder Kimo Simmons, PAC: [address] [place] [address], [address] [place] [phone], Ph. 03/09/2022 Retention of Urine Lola Cadena PA: [address] [place] [phone], Ph. 02/09/2022 Retention of Urine SHERRY Kurtz: [address] [place] [phone], Ph. 01/13/2022 Neurogenic Bladder; Primary Erectile Dys function SHERRY Kurtz: [address] [place] [phone], Ph. 11/10/2021 Retention of Urine Torres Gonzalez MD: [address] [place] [address], [address] [place] [phone], Ph. 10/13/2021 Neurogenic Bladder Gennaro Smalls, PAC: [address] [place] [phone], Ph. 10/13/2021 Retention of Urine Torres Gonzalez MD: [address] [place] [address], [address], [place] [address], Ph. 08/25/2021 Retention of Urine Torres Gonzalez MD: [address] [place] [address], [address], [place] [address], Ph. 07/28/2021 Retention of Urine Torres Gonzalez MD: [address] [place] [address], [address], [place] [address], Ph. 06/30/2021 Retention of Urine Torres Gonzalez MD: [address] [place] [address], [address], [place] [address], Ph. 06/02/2021 Retention of Urine; Acontractile Detruso r Torres Gonzalez MD: [address] [place] [address], [address], [place] [address], Ph. 06/02/2021 Retention of Urine Torres Gonzalez MD: [address] [place] [address], [address], [place] [address], Ph. 05/05/2021 Retention of Urine Torres Gonzalez MD: [address] [place] [address], [address], [place] [address], Ph. 04/07/2021 Retention of Urine Torres Gonzalez MD: [address] [place] [address], [address], [place] [address], Ph. 03/03/2021 Retention of Urine Torres Gonzalez MD: [address] [place] [address], [address], [place] [address], Ph. 02/03/2021 Retention of Urine Torres Gonzalez MD: [address] [place] [address], [address], [place] [address], Ph. Social History Tobacco Smoking Status Former Smoker Vaccine List Vaccine Type COVID-19, mRNA, LNP-S, PF, 30 mcg/0.3 mL dose ([employer]) 12/07/2020 12/28/2020 10/18/2021 influenza, high dose [...]
--- OUTSIDE RECORDS SUMMARY | 2022-07-18 09:20 | XMS_ITS | Encounter Summary ---
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 Culture, Urine 06/08/2022 [facility] Referral None [...] -[facility]: [address] ? ? UR ? Appearance clear clear Final [place] [facility]: [address] [address], [place] ? ? UR ? Glucose negative negative Final [place] [facility] mg/dL mg/dL [facility]: [address] ? ? UR ? Bilirubin negative negative Final [place] [facility]: [address] ? ? UR ? Ketones negative negative Final [place] [facility] mg/dL mg/dL [facility]: [address] ? ? UR ? Sp. [place] 1.010 1.010-1.0 Final [place] [facility]: [address] ? ? UR ? pH -[facility] 6.0 5.0-8.0 Final [place] [facility]: [address] ? ? UR ? Protein negative negative Final [place] [facility] mg/dL mg/dL [facility]: [address] ? ? UR ? Urobilinogen 0.2 normal Final [place] [facility]: [address] [address], [place] ? ? UR ? Nitrites negative negative Final [place] [facility]: [address] ? ? UR ABNORMA Blood large negative Final [place] -[facility]: [address] [address], [place] ? ? UR ABNORMA Leukocytes small negative Final [place] L -[facility]: [address] ? ? UR ? Performed by va X ? Final [place] [facility]: [address] ? ? UR ? Total Urine 30mls /mL ? Final [place] Volume (mL) [facility]: [address] [place] [address] 06/08/2022 Culture, URT ABNORMA Final Report microbiology ? Final [place] Urine L results [facility]: [address] [address], [place] Allergies Code Code System Name Reaction Severity Onset 733 RxNorm Ampicillin ? ? ? 550261 RxNorm Demerol ? ? ? Penicillin ? [...] ANAL/URINARY MUSCL E STUDY 01/03/2018 Cystometrogram W/vp software&up Information not a vailable Notes: 01/03/2018 - [...] mRNA, LNP-S, PF, 30 mcg/0.3 mL dose ([employer]) 12/07/2020 12/28/2020 10/18/2021 influenza, high dose seasonal 08/14/2019 influenza, high-dose, quadrivalent 09/21/2021 influenza, seasonal, injectable 08/11/2008 08/26/2009 influenza, seasonal, injectable, preserv ative free 09/01/2011 pneumococcal polysaccharide PPV23 08/11/2008 Tdap 08/14/2019 Social History Tobacco Smoking Status Former Smoker Marital status Has tobacco cessation counseling been provided? Y Are you currently employed? N Could you be ? N Preferred Language Rwandan How much tobacco do you chew? none [...] ion of Urine Kimo Simmons, PAC: [address] [facility], [address] [phone], Ph. History of Present Illness None recorded. Review of Systems None recorded. Physical Exam None recorded.
--- OUTSIDE RECORDS SUMMARY | 2022-07-18 09:20 | XMS_ITS | Encounter Summary ---
:1940 Author Care Team Providers Name Role Phone [facility] Primary Care Provider [phone] Deion Aguillon MD Primary Care Provider [phone] Reason for Visit Monthly Catheter Change Assessment [...] Onset 733 RxNorm Ampicillin ? ? ? [id number] RxNorm Demerol ? ? ? Penicillin ? 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 Y Are you currently employed? N Could you be ? N Preferred Language Cook Islander How much tobacco do you chew? none [...] Erectile Dysfunction; Neurogenic Bladder Kimo Simmons, PAC: [address] [facility] [address], [place] [address], Ph. History of Present Illness ? Voiding [...] of 3 with borderline adequate maintenance. No nagelito n or curvature with erections. Good libido [...]
[2022-07-18 13:15] LABS: Chloride* 106 mmol/L (96-114)
[2022-07-18 13:16] LABS: Potassium* 4.1 mmol/L (3.6-5.1); Sodium* 137 mmol/L (135-149)
[2022-07-18 13:18] LABS: Estimated Glomerular Filt Rate 76 ml/min
[2022-07-18 13:19] LABS: Blood Urea Nitrogen* 14 mg/dL (7-30); Calcium* 8.6 mg/dL (8.4-10.6); Carbon Dioxide* 24 mmol/L (20-32); Glucose* 101 mg/dL (60-115)
== END 2022-07-18 09:14 | disposition home or self-care (01) ==
LOC: NFLDREF 09:13
PROVIDERS: PCP Internal Medicine; Visit Provider Internal Medicine
DX: Z93.59 Other cystostomy status (principal)
CPT/HCPCS: 80048

== ENCOUNTER 2023-01-23 08:15 | Outpatient (CLI) | payer MEDICARE, SELFPAY | END 2023-01-23 08:16 | disposition home or self-care (01) | LOC: NFLDREF 13:09 | PROVIDERS: PCP Internal Medicine; Referring Provider Internal Medicine; Visit Provider Internal Medicine | DX: E03.9 Hypothyroidism, unspecified (principal); I10 Essential (primary) hypertension; N52.9 Male erectile dysfunction, unspecified; Z86.73 Personal history of transient ischemic attack (TIA), and cerebral infarction without residual deficits | CPT/HCPCS: 80053; 80061; 83520; 84153 ==

== ENCOUNTER 2024-01-22 08:19 | Outpatient (CLI) | payer MEDICARE, SELFPAY | END 2024-01-22 08:20 | disposition home or self-care (01) | LOC: NFLDREF 01-25 09:27 | PROVIDERS: PCP Internal Medicine; Referring Provider Internal Medicine; Visit Provider Internal Medicine | DX: I10 Essential (primary) hypertension (principal); R97.20 Elevated prostate specific antigen [PSA]; Z13.9 Encounter for screening, unspecified; Z13.6 Encounter for screening for cardiovascular disorders | CPT/HCPCS: 80053; 80061; G0103 ==

== ENCOUNTER 2024-08-21 12:54 | Outpatient (CLI) | payer MEDICARE, SELFPAY ==
--- OUTSIDE RECORDS SUMMARY | 2024-08-21 12:57 | XMS_ITS | Clinical Summary ---
Author Organization [employer] Address [place], [place] [address] Care Team Providers Care [employer] Name Role Phone David Lu MD Primary Care Provider [phone] Allergies Active Allergy Reactions Criticality Noted Date Comments Ampicillin Rash 08/02/2006 Meperidine Nausea And Vomiting 08/02/2006 Penicillins Rash 08/02/2006 Medications Medication Sig Dispensed Refills Start Date End Date Status ASPIRIN 81 MG TAB one every day 90 0 08/26/2009 Active CENTRUM SILVER 500 MCG-250 MCG CHEWABLE TAB one every day 90 0 08/26/2009 Active VITAMIN D 1,000 UNIT TAB one every day 90 0 08/26/2009 Active terazosin (HYTRIN) 2 mg capsuleIndications:E levated prostate specific antigen (PSA) Take 1 capsule by mouth at bedtime. 90 capsule 06/13/2017 Active esomeprazole magnesium 20 mg TbECIndications:Vickey erik reflux Take by mouth. 0 06/13/2017 Active tadalafil (CIALIS) 5 mg tabletIndications:ED (erectile dysfunction) of organic origin Take 1 tablet by mouth once daily. 30 tablet 06/13/2017 Active lisinopril (PRINIVIL; ZESTRIL) 10 mg tabletIndications:Es sential hypertension, benign TAKE 1 TABLET BY MOUTH ONCE DAILY. 30 tablet 09/09/2018 Active levothyroxine sodium (LEVOTHROID ORAL) Take by mouth. Act keyonna Active Problems Problem Noted Date Diagnosed Date Colon polyps 08/15/2013 Elevated prostate specific antigen (PSA) 008 Essential hypertension, benign 06/05/2007 Esophageal reflux 06/05/2007 Hypertrophy of prostate with urinary obstruction and other lower urinary tract symptoms (LUTS) 06/05/2007 Unspecified hemorrhoids without mention of compl ication 06/05/2007 Umbilical hernia without mention of obstruction or gangrene 06/05/2007 Inguinal hernia without ment ion of obstruction or gangrene, unilateral or unspecified, (not specified as recurrent) 06/05/2007 Immunizations Name Administration Dates Next Due Influenza, IIV3 (Age >=3 years) 09/01/2011,08/26,08/11/2008 Pneumococcal Poly,23-Valent (Pneumovax) 08/11/20 Tetanus Toxoid 06/21/2006 Family History Relation Name Status Comments Mother (Age 89) 09/06 Social History Tobacco Use Types Packs/Day Years Used Date Smoking Tobacco: Former Cigarettes Q uit: 10/29/1960 Smokeless Tobacco: Never Tobacco Cessation:Counseling Given: No Comments:quit age 19 Alcohol Use Standard Drinks/Week Comments No 0 (1 standard drink = 0.6 oz pur e alcohol) 1-2 beers a month Sex and Gender Information Value Date Recorded Sex Assigned at Not on file Gender Identity Not on file Sexual Orientation Not on file Obstetrics History Last Filed Vital Signs Vital Sign Reading Time Taken Comments Blood Pressure 130/66 12/01/2021 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[employer] Pulse 72 12/01/2021 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[employer] Temperature 37.1 ??C (98.8 ??F) 12/01/2021 10:[address] Respiratory Rate 16 12/01/2021 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ANCE Oxygen Saturation 86% 12/01/2021 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ANCE Inhaled Oxygen Concentration - - Weight 74.8 kg (165 lb) 12/01/2021 10:20 AM 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 DIRECTOR FIN[employer] Height 167.6 cm (5' 6) 12/01/2021 10:20 AM SENIOR DIRECTOR FINANCE Body Mass Index 26.63 12/01/2021 10:20 AM SENIOR DIRECTOR FINANCE Plan of Treatment Health Maintenance Due Date Last Done Comments Tdap 1952 Tetanus booster 1961 Zoster (shingles) series for age 50+ (1 of 2) 1991 Pneumococcal series for age 65+ (2 of 2 - PCV) 08/11/2009 08/11/2008 RSV vaccine for adults or pr egnancy (1 - 1-dose 75+ series) 2016 BMI (ht and wt on same day) for age 18+ 06/13/2018 06/13/2017, 08/09/2016 Depression screening for age 12+ 06/13/2018 06/13/2017, 06/13/2017, 08/09/2016 COVID-19 vaccine series ( season) 2024 10/18/2021, 12/28/2020, 12/07/2020 Influenza for age 65+ 06/29/2024 09/01/2011 , 08/26/2009, 08/11/2008 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
--- OUTSIDE RECORDS SUMMARY | 2024-08-21 12:57 | XMS_ITS | Continuity of Care Document ---
Author Organization [facility], [place] Address [address] [place] [id number] Care Team Providers Care Fruit Tester Name Role Phone FAMILIA ALAMO Primary Care Provider [facility] Primary Care Provider Assessment No assessment recorded. Plan of Treatment Reminders Order Date Submit Date Provider Last Modified By Organization Details Last Modified Time Details Appointments CYSTO-10 2023 11:20A M Darryl Willoughby MD Not available Not available Not available LAB CATH CHANGE 2023 01:30P M CLINICAL_ SCHEDULE Not available Not available Not available LAB CATH CHANGE 2023 11:00A M CLINICAL_ SCHEDULE Not available Not available Not available Lab None recorded . Referral None recorded . Procedures None recorded . Surgeries None recorded . Imaging None recorded . Medication Orders None recorded . Patient TargetsNo targets recorded. Patient InstructionsNo instructions recorded. Reason for Referral Interventional Radiologist R eferral for Neurogenic urinary bladder please contact patient to schedule Placement of Suprapubic tube for history of neurogenic bladder Referring Physician: Gennaro Smalls [facility], Encounter Date: 10/13/2021 Problems Name Problem SNOMED Code Status Onset Date Resolution Date Notes Provider Name and Address Organization Details Recorded Time Finding of urinary bladder emptying 601892408 Active 2017 R33.8 : Finding of bladder emptying Not Available [facility] 0 00:08:10 Prostate specific antigen above reference range 598741872 Active 2017 R97.20 : Raised prostate specific antigen Not Available [facility] 0 00:08:10 Problem Notes None recorded. Procedures Surgical History Date Name Laterality Status Provider Name and Address Organization Details Recorded Time 08/14/20 24 SP Tube change completed Clifford salguero [facility] 08/14/2024 12:15:29 08/14/20 24 COMPLEX VISIT completed JOSEPH CARR [address], [place], [address], [facility] 08/14/2024 11:49:17 07/03/20 24 SP Tube change completed Soraida Wood [facility] 07/03/2024 11:46:09 06/05/20 24 SP Tube change completed Davin Nou Dan[facility] 06/05/2024 12:11:12 05/08/20 24 SP Tube change completed Ermelinda Lopes [facility] 05/08/2024 12:29:28 04/03/20 24 SP Tube change completed Milena Higuera [facility] 04/03/2024 12:11:58 02/28/20 24 SP Tube change [facility]eline [facility] 02/28/2024 12:31:57 01/31/20 24 SP Tube change completed Aranza Archuleta [facility] 01/31/2024 11:57:52 01/03/20 24 SP Tube change completed Ermelinda Lopes [facility] 01/03/2024 12:20:32 12/06/19 24 SP Tube change completed Angeline Walters [facility] 12/06/2023 12:46:05 11/08/19 24 SP Tube change completed Ermelinda Lopes [facility] 11/08/2023 14:39:44 10/11/20 23 SP Tube change completed Ermelinda Lopes [facility] 10/11/2023 11:39:17 09/14/20 23 SP Tube change completed [facility]e [facility] 09/14/2023 13:18:16 08/16/20 23 SP Tube change completed Yvette Montano [facility] 08/16/2023 12:02:53 07/05/20 23 SP Tube change completed Yvette Montano [facility] 07/05/2023 12:22:31 06/07/20 23 SP Tube change completed Rowan Williamson [facility] 06/07/2023 12:28:05 05/10/20 23 SP Tube change completed Phu De La [facility] 05/10/2023 12:47:33 04/12/20 23 SP Tube change completed Yvette Montano [facility] 04/12/2023 12:31:52 03/08/20 23 SP Tube change completed Aranza Vievering [facility] 03/08/2023 13:22:09 02/09/20 23 SP Tube change completed Aranza Vievering [facility] 02/08/2023 11:52:52 01/05/20 23 SP Tube change completed Aranza Vievering [facility] 01/04/2023 11:45:26 12/07/19 23 SP Tube change completed Aranza Vievering [facility] 12/07/2022 12:13:16 11/09/19 23 SP Tube change completed Jennie Lambert [facility] 11/09/2022 16:56:31 10/05/20 22 SP Tube change completed Bushra Floyd [facility] 10/05/2022 16:33:40 08/31/20 22 SP Tube change completed Jayla Rebollar [facility] 08/31/2022 11:05:23 08/03/20 22 Urethral Catheter Change completed Jayla Rebollar [facility] 08/03/2022 11:14:48 07/06/20 22 SP Tube change completed Maeve Begum [facility] 07/06/2022 12:57:26 06/08/20 22 SP Tube change completed Juanita Jay [facility] 06/08/2022 11:35:54 05/04/20 22 SP Tube change completed LÁZARO STEPHEN, PAC [address] [place] [address],[place] [address], [place], [address], [facility] 05/04/2022 10:47:46 03/09/20 22 SP Tube change completed Kassidy Bar [facility] 03/09/2022 12:25:17 02/10/20 22 SP Tube change completed Kassidy Bar [facility] 02/09/2022 13:42:52 01/14/20 22 SP Tube change completed Lola Cadena [facility] 01/13/2022 14:38:39 11/10/19 22 Urethral Catheter Change completed Maeve Begum [facility] 11/10/2021 13:17:13 10/13/20 21 Urethral Catheter Change completed Maeve Begum [facility] 10/13/2021 13:24:07 08/25/20 21 Urethral Catheter Change completed Kassidy Bar [facility] 08/25/2021 10:18:16 07/28/20 21 Urethral Catheter Change completed Kassidy Bar [facility] 07/28/2021 09:47:05 06/30/20 21 Urethral Catheter Change completed Kassidy Bar [facility] 06/30/2021 15:47:53 06/02/20 21 Urethral Catheter Change completed Kassidy Bar [facility] 06/02/2021 11:40:17 05/05/20 21 Urethral Catheter Change completed Kassidy Bar [facility] 05/06/2021 09:12:30 04/07/20 21 Urethral Catheter Change completed Maeve Begum [facility] 04/07/2021 11:21:21 03/03/20 21 Urethral Catheter Change completed Kassidy Bar [facility] 03/03/2021 10:51:43 02/04/20 21 Urethral Catheter Change completed Kassidy Bar [facility] 02/03/2021 10:53:42 01/07/20 21 Urethral Catheter Change completed Kassidy Bar [facility] 01/06/2021 13:10:24 12/09/19 21 Urethral Catheter Change completed Kassidy Bar [facility] 12/09/2020 11:35:18 11/11/19 21 Urethral Catheter Change completed Kassidy Bar [facility] 11/11/2020 15:21:57 10/07/20 20 Urethral Catheter Change completed Maeve Begum [facility] 10/07/2020 11:07:34 09/09/20 20 Urethral Catheter Change completed Kassidy Bar [facility] 09/09/2020 11:17:32 08/05/20 20 Urethral Catheter Change completed Mckenna Mendosa [facility] 08/05/2020 11:32:29 07/01/20 20 Urethral Catheter Change completed Kassidy Bar [facility] 07/01/2020 14:32:03 06/03/20 20 Urethral Catheter Change completed Sandie Moreno [facility] 06/03/2020 12:09:51 04/29/20 20 Urethral Catheter Change completed Kassiyd Bar [facility] 04/29/2020 16:40:30 03/04/20 20 Insert temp bladder cath completed Not Available [facility] 08/05/2020 15:54:52 01/29/20 20 Insert temp bladder cath completed Not Available [facility] 04/08/2020 13:43:57 01/01/20 20 Insert temp bladder cath completed Not Available [facility] 04/08/2020 13:43:57 12/04/19 20 Insert temp bladder cath completed Not Available [facility] 04/08/2020 13:43:57 10/30/19 20 Insert temp bladder cath completed Not Available [facility] 04/08/2020 13:43:58 10/09/20 19 Insert temp bladder cath completed Not Available [facility] 04/08/2020 13:43:58 08/28/20 19 Insert temp bladder cath completed Not Available [facility] 04/08/2020 13:43:58 07/31/20 19 Insert temp bladder cath completed Not Available [facility] 04/08/2020 13:43:58 07/03/20 19 Insert temp bladder cath completed Not Available [facility] 04/08/2020 13:43:58 05/29/20 19 Insert temp bladder cath completed Not Available [facility] 04/08/2020 13:43:58 05/08/20 19 Insert temp bladder cath completed Not Available [facility] 04/08/2020 13:43:57 03/20/20 19 Insert temp bladder cath completed Not Available [facility] 04/08/2020 13:43:57 02/21/20 19 Insert temp bladder cath completed Not Available [facility] 04/08/2020 13:43:58 01/24/20 19 Insert temp bladder cath completed Not Available [facility] 04/08/2020 13:43:57 12/26/19 19 Insert temp bladder cath completed Not Available [facility] 04/08/2020 13:43:57 11/21/19 19 Insert temp bladder cath completed Not Available [facility] 04/08/2020 13:43:57 10/24/20 18 Insert temp bladder cath completed Not Available [facility] 04/08/2020 13:43:58 09/26/20 18 Insert temp bladder cath completed Not Available [facility] 04/08/2020 13:43:58 08/22/20 18 Insert temp bladder cath completed Not Available [facility] 04/08/2020 13:43:57 07/25/20 18 Insert temp bladder cath completed Not Available [facility] 04/08/2020 13:43:58 06/27/20 18 Insert temp bladder cath completed Not Available [facility] 04/08/2020 13:43:57 05/24/20 18 Insert temp bladder cath completed Not Available [facility] 04/08/2020 13:43:57 04/25/20 18 Insert temp bladder cath completed Not Available [facility] 04/08/2020 13:43:58 02/28/20 18 Insert temp bladder cath completed Not Available [facility] 04/08/2020 13:43:57 01/25/20 18 Insert temp bladder cath completed Not Available [facility] 04/08/2020 13:43:57 01/04/20 18 Electro-uroflowmet ry first completed Not Available [facility] 04/08/2020 13:43:57 01/04/20 18 Cystometrogram w/knit goods press hand&up completed Not Available [facility] 04/08/2020 13:43:58 01/04/20 18 Insert temp bladder cath completed Not Available [facility] 04/08/2020 13:43:58 01/04/20 18 Intraabdominal pressure test completed Not Available [facility] 04/08/2020 13:43:58 01/04/20 18 Anal/urinary muscle study completed Not Available [facility] 04/08/2020 13:43:58 12/20/19 18 Cystoscopy completed Not Available [facility] 04/08/2020 13:43:57 12/20/19 18 Insert temp bladder cath completed Not Available [facility] 04/08/2020 13:43:58 10/29/19 13 colonoscopy completed Davin Mcclendon [facility] 09/14/2023 13:10:07 12/12/18 78 Removal of gallbladder completed Not Available [facility] 04/08/2020 13:43:57 Imaging Results None recorded. Procedure Notes None recorded. Medical Equipment None Reported. Allergies Allergen ID Allergen Name Allergen Category Reaction Reaction Severity Criticality Documentation Date Start Date Code Code System Note Provider Name and Address Organization Details Recorded Time [id number] Demerol medicatio n Not available Not available Not available 04/07/2020 32218 1 RxNorm Not Available [facility] 0 23:53:45 771960 ampicilli n medicatio n Not available Not available Not available 04/07/2020 733 RxNorm Not Available [facility] 0 23:53:45 [id number] Penicilli n Not available Not available Not available Not available 04/07/2020 10115 RxNorm Not Available [facility] 0 23:53:45 Medications Name Sig Start Date Stop Date Status Note LastModified by Organization Details LastModified Time atorvastati n 20 mg tablet TAKE ONE TABLET BY MOUTH AT BEDTIME active Not Available Not Available No t Available sildenafil 50 mg tablet TAKE 1-2 TABLETS BY MOUTH NEEDED TIMED ON EMPTY STOMACH AROUND SEXUAL ACTIVITY 08/16 completed Not Available Not Available Not Available azithromyci n 250 mg tablet TAKE 2 TABLETS BY MOUTH TODAY THEN 1 TABLET DAILY FOR 4 DAYS 05/10 completed Not Available Not Available Not Available lisinopril 20 mg tablet TAKE ONE TABLET BY MOUTH EVERY DAY active Not Available Not Available No t Available levothyroxi ne 75 mcg tablet Take 1 tablet every day by oral route. 08/14 completed Not Available Not Available Not Available levothyroxi ne 88 mcg tablet TAKE ONE TABLET BY MOUTH DAILY active Not Available Not Available No t Available cephalexin 500 mg capsule TAKE ONE CAPSULE BY MOUTH EVERY 6 HOURS 08/14 completed Not Available Not Available Not Available lisinopril 10 mg tablet Take 1 tablet every day by oral route. 08/14 completed Not Available Not Available Not Available levofloxaci n 750 mg tablet TAKE ONE TABLET BY MOUTH EVERY 24 HOURS FOR 9 DAYS 05/10 completed Not Available Not Available Not Available esomeprazol e magnesium 20 mg capsule,del ayed release TAKE ONE CAPSULE BY MOUTH EVERY DAY FOR ACID REFLUX active Not Available Not Available No t Available Adult Low Dose Aspirin 81 mg tablet,roberto yed release Take 1 tablet every day by oral route. active Not Available Not Available No t Available tadalafil 5 mg tablet TAKE ONE TABLET BY MOUTH EVERY DAY FOR 30 DAYS 03/14 completed Not Available Not Available Not Available tadalafil 20 mg tablet TAKE 1 TABLET BY MOUTH NEEDED TIMED AROUND SEXUAL ACTIVITY 05/04 completed Not Available Not Available Not Available Vitamin D3 10 mcg (400 unit) capsule Take by oral route. active Not Available Not Available No t Available Vitals Date Recorded Body height Provider Name an d Address Organization Details Last Updated DateTime 08/14/2024 167.64 cm Luma Quan [facility] 08/14/2024 11:21:37 Date Recorded Body height Body mass index (BMI) Body weight Provider Name and Address Organization Details Last Updated DateTime 08/14/2024 167.64 cm 25.8 kg/m2 73651.78 g Clifford Torres [facility] 08/14/2024 11:45:36 Social History Question Answer Notes LastModified by Organizat ion Details LastModified Time Tobacco Smoking Status Former Smoker Not Available [facility] 04/08/2020 02:45:12 What Is Your Level Of Alcohol Consumption? Occasional 1 Drink Per Month. Information not available 08/14/2024 What Is Your Level Of Caffeine Consumption? Occasional Information not available 06/03/2020 How Much Tobacco Do You Chew? None Information not available 06/03/2020 Are You Currently Employed? No [email or web address] Information not available 10/13/2021 Do You Or Have You Ever Used E-cigarettes Or Vape? Never Used Electronic Cigarettes Information not available 06/03/2020 When Did You Quit Smoking? 16+yearssincel [email or web address] Information not available 01/13/2022 Race White Information n ot available 04/08/2020 Ethnicity Not /Latin o Information not available 06/03/2020 Preferred Language Azerbaijani [email or web address] Information not available 10/13/2021 Recreational Drug Use No [email or web address] Information not available 10/13/2021 Could You Be ? No [email or web address] Information not available 10/13/2021 Marital Status Informati on not available 04/08/2020 What Was The Date Of Your Most Recent Tobacco Screening? 08/14/2024 Information not available 08/14/2024 Have You Ever Been Counseled For Unhealthy Alcohol Use? No Information not available 08/14/2024 What Is Your Relationship Status? Unknown Information not available 01/13/2022 Are You Sexually Active? No [email or web address] Information not available 10/13/2021 Do You Or Have You Ever Used Smokeless Tobacco? Never Used Smokeless Tobacco Information not available 06/03/2020 Do You Use Any Illicit Or Recreational Drugs? No [email or web address] Information not available 10/13/2021 Has Tobacco Cessation Counseling Been Provided? Yes Information not available 05/04/2022 On What Date Was Tobacco Cessation Counseling Provided? 08/14/2024 Information not available 08/14/2024 How Many Years Have You Smoked Tobacco? 6 Information not available 05/04/2022 Do You Or Have You Ever Used Any Other Forms Of Tobacco Or Nicotine? No Information not available 05/04/2022 How Many Days In The Past Year Have You Consumed 5 Or More Drinks? 0 Information not available 08/16/2023 Sex: Unknown Functional Status None recorded. Mental Status None recorded. Family History Nothing Reported Notes:Cancer :Father Heart Disease:Mother Medical History Condition Response Sexually Transmitted Infection N Diabetes N Other N Bleeding Disorder N High Blood Pressure Y Kidney Stones N High Cholesterol N GERD/Acid Reflux N Heart Disease N Cancer N Depression N Lung Disease N Immunizations Vaccine Type Date Status Provider Name and Address Organization Details Recorded Time COVID-19, mRNA, LNP-S, PF, 30 mcg/0.3 mL dose 12/07/2020 completed Tomasa ballesteros [facility] 01/13/2022 11:30:27 Influenza, split virus, trivalent, preservative 08/11/2008 completed Tomasa ballesteros [facility] 01/13/2022 11:30:27 Influenza, split virus, trivalent, PF 09/01/2011 completed Tomasa ballesteros [facility] 01/13/2022 11:30:27 Influenza, high-dose, quadrivalent, PF 09/21/2021 completed Tomasa ballesteros [facility] 01/13/2022 11:30:27 Influenza, split virus, trivalent, preservative 08/26/2009 completed Tomasa ballesteros, [facility] 01/13/2022 11:30:27 Tdap 08/14/2019 completed Tomasa Juares null, [facility] 01/13/2022 11:30:27 COVID-19, mRNA, LNP-S, PF, 30 mcg/0.3 mL dose 12/28/2020 completed Tomasa Juares null, [facility] 01/13/2022 11:30:27 Influenza, high-dose, trivalent, PF 08/14/2019 completed Tomasa Juares null, [facility] 01/13/2022 11:30:27 COVID-19, mRNA, LNP-S, PF, 30 mcg/0.3 mL dose 10/18/2021 completed Juanita Jay null, [facility] 06/08/2022 11:35:03 pneumococcal polysaccharide PPV23 08/11/2008 completed Prema Marmolejo null, [facility] 06/08/2021 16:56:42 Past Encounters Encounter ID Performer Location Encounter Start Date Encounter Closed Date Diagnosis/Indication Diagnosis SNOMED-CT Code Diagnosis ICD10 Code [id number] JOSEPH CARR [facility] [address] [address] 08/14/2024 11:19:03 08/14/2024 16:16:13 [place] hematuria 628612389 R31.0 Neurogenic urinary bladder 779766784 N31.9 [id number] Clifford Torres [facility] [place] [address] [place] [address] 08/14/2024 11:24:33 08/14/2024 12:16:10 Chronic retention of urine 281693730 R33.8 Health Concerns Section Related Observation LastModified by Organization Detai ls LastModified Time None Recorded Concern Status LastModified by Organization Details LastModified Time None Recorded Payers Encounter Date Sequence Insurance Name Policy Number Policy Hammond Covered Member ID Hammond Member ID Guarantor Name 08/14/2024 1 [employer] - DOS ON OR AFTER 19 (MEDICARE REPLACEMENT/ ADVANTAGE - HMO) [id number] Talib Walden [id number] Talib Walden Notes Date Note Type Note Provider Name and Address Organization Details Recorded Time 08/14/2024 text/html HPI Notes: 08/14/24: Patient is an 84-year-old male presents today for neurogenic bladder, gross hematuria. Patient doing well over the last year with the exception of an episode of urinary tract infection in December 2023 and episode of gross hematuria following catheter exchange in April 2024. He notes that following the catheter exchange in April 2024, he had persistent bleeding per urethra for the next several days that has since stopped. No family history of urologic cancers. No smoking history. No previous episodes of gross hematuria prior to this. 08/16/23: Patient is an 83-year-old male presents today for urinary retention, ED. 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 He continues with SP catheter exchanges monthly. Exchanged today in clinic. He has not had any gross hematuria or UTIs. He is currently quite satisfied with his symptoms. ED: Patient with longstanding ED, difficulties mainly with maintaining erections. No improvement with sildenafil. We did briefly discuss IC injections versus implants. Patient not interested in this. We will continue to see patient back in yearly basis. JOSEPH CARR [address] [place] [address],[address], [place], [address], [facility] 08/14/2024 11:51:35
--- NOTE | 2024-08-21 13:00 | CRLHL7_ITS ---
For Patients: As a result of the Century Cures Act, medical imaging exams and procedure reports are released immediately into your electronic medical record. You may view this report before your referring provider. If you have questions, please contact your health care provider. INDICATION: GROSS HEMATURIA TECHNIQUE: CT abdomen and pelvis urogram without and with 100 cc Isovue 370 intravenous contrast. Contrast images were obtained in the nephrographic and delayed phases. COMPARISON: 07/12/2022 FINDINGS: KIDNEYS: The unenhanced images demonstrate no kidney or ureteral stones. Subcentimeter simple cysts left kidney. Normal renal parenchymal enhancement bilaterally. No solid masses. Ectasia of the right mid ureter with an area of relative narrowing. URINARY BLADDER: The bladder is incompletely distended as a Caraballo catheter is present. The prostate is massively enlarged, including a large superior peripherally calcified masslike area. The entire prostate measures up to 11.2 cm and the upper peripherally calcified area measures approximally 5.6 cm. Bladder diverticula appear to be present. OTHER: Scarring in both lung bases, mild. Similar appearance of pneumobilia. Spleen unremarkable. Adrenal glands normal. Pancreas normal. No intrahepatic mass. Atherosclerotic changes. Right inguinal hernia containing nondistended loops of bowel. Sigmoid diverticulosis. No diverticulitis. Degenerative facet arthropathy lower lumbar spine with degenerative anterolisthesis at L4-5. Incidental intraosseous hemangioma within T11 and T12. IMPRESSION: 1. Massive enlargement of the prostate including a peripherally calcified mass superiorly. 2. No hydronephrosis or hydroureter although the right ureter is ectatic with relative narrowing in the mid portion which could be related to chronic stenosis. No renal stone. Please note that all CT scans at this facility use dose modulation, iterative reconstruction, and/or weight-based dosing when appropriate to reduce radiation dose to as low as reasonably achievable. Dictated by Costa Molina MD @ 08/22/2024 4:36:40 PM (Electronically Signed)
[2024-08-21 13:36] LABS: Estimated Glomerular Filt Rate 75 ml/min
== END 2024-08-21 12:55 | disposition home or self-care (01) ==
LOC: CT 12:55
PROVIDERS: PCP Internal Medicine; Visit Provider Physician Assistant
DX: R31.0 Gross hematuria (principal); N40.0 Benign prostatic hyperplasia without lower urinary tract symptoms
CPT/HCPCS: 36415; 74178; 82565; Q9967

== ENCOUNTER 2024-09-30 07:59 | Outpatient (CLI) | payer MEDICARE, SELFPAY ==
--- OUTSIDE RECORDS SUMMARY | 2024-09-30 08:02 | XMS_ITS | Data Portability ---
Author Organization [facility] Angela gy, [facility] Address [address] [place] [address] Care Team Providers Care Property Utilization Officer Name Role Phone FAMILIA ALAMO Primary Care Provider [facility] Primary Care Provider Assessment No assessment recorded. Plan of Treatment Reminders Order Date Submit Date Provider Last Modified By Organization Details Last Modified Time Details Appointments LAB CATH CHANGE 2023 11:00A M CLINICAL_ SCHEDULE Not available Not available Not available LAB CATH CHANGE 2024 11:00A M CLINICAL_ SCHEDULE Not available Not available Not available LAB CATH CHANGE 2024 11:00A M CLINICAL_ SCHEDULE Not available Not available Not available LAB CATH CHANGE 2024 11:00A M CLINICAL_ SCHEDULE Not available Not available Not available LAB CATH CHANGE 2024 11:00A M CLINICAL_ SCHEDULE Not available Not available Not available LAB CATH CHANGE 2024 11:00A M CLINICAL_ SCHEDULE Not available Not available Not available LAB CATH CHANGE 2024 11:00A M CLINICAL_ SCHEDULE Not available Not available Not available LAB CATH CHANGE 2024 11:00A M CLINICAL_ SCHEDULE Not available Not available Not available LAB CATH CHANGE 2024 11:00A M CLINICAL_ SCHEDULE Not available Not available Not available LAB CATH CHANGE 2024 11:00A M CLINICAL_ SCHEDULE Not available Not available Not available LAB CATH CHANGE 2024 11:00A M CLINICAL_ SCHEDULE Not available Not available Not available LAB CATH CHANGE 2024 11:00A M CLINICAL_ SCHEDULE Not available Not available Not available LAB CATH CHANGE 2024 11:00A M CLINICAL_ SCHEDULE Not available Not available Not available LAB CATH CHANGE 2024 11:00A M CLINICAL_ SCHEDULE Not available Not available Not available Lab urinalysi s, dipstick 2023 [facility], [address], [address], [place], [address], 08/14/2024 12:37:30 urinalysi s, microscop ic 2023 024 [facility], [address], [address], [place], [address], 08/14/2024 12:37:32 unlisted lab - urine cytology 2023 [facility] [place] [address], [place], [address], 08/18/2024 10:27:12 cytology, urine 2023 [facility], [address], [address], [place], [address], 08/14/2024 11:36:52 Referral None recorded. Procedures None recorded. Surgeries None recorded. Imaging CT, urogram - Gross hematuria , indwellin g SP catheter 2023 [facility], [address] [place], [address], 08/22/2024 17:40:02 MRI, prostate, w/wo contrast 2023 024 [email or web address] [facility], [address] [place], [address], 09/19/2024 11:08:58 Medication Orders None recorded. Patient TargetsNo targets recorded. Patient Instructions Encounter Date Encounter Id Patient Instructions Last Modified By Organization Details Last Modified Time 08/14/2024 [id number] Patient is an 84-year-old male presents today for neurogenic bladder, gross hematuria. Patient overall doing well over the last year with indwelling SP catheter. He did have 1 urinary tract infection in December 2023, which was uncomplicated and treated with antibiotics. He did note an episode of gross hematuria that occurred following his catheter exchange in April 2024. He had persistent bleeding per urethra following the catheter exchange. He denies any ongoing flank or abdominal pain. His gross hematuria has since resolved however given persistent gross hematuria following his catheter exchange, I do feel an evaluation to rule out malignancy is warranted. Will obtain urine cytology, CT urogram and arrange for in-office cystoscopy. [email or web address] Not available 08/14/2024 11:50:44 09/18/2024 [id number] Gross hematuria/Prostati c mass: I suspect this is a calcified nodule but we discussed the risk of underlying malignancy. He has had three prior biopsies but with his gland size under sampling is certainly possible. I recommend we obtain an MRI of the prostate to begin. If this is negative I think he would benefit from prostate artery embolization given his ongoing bleeding. 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 We will continue monthly suprapubic tube exchanges. He will undergo one today. [email or web address] Not available 09/18/2024 13:42:01 Reason for Referral None Reported. Results Created Date Observation Date Name Description Value Unit Range Abnormal Flag Note LastModifiedBy Organization Detail LastModifiedTime 08/14/2008/14/2024 UA WITHO UT MICRO - CS URISC AN blood - uriscan SMALL negati ve abnormal Not Available [facility] [address] [facility] [address], [place], [address], 08/14/2024 12:37:30 08/14/2008/14/2024 UA WITHO UT MICRO - CS URISC AN bilirubin - uriscan NEGATI VE mg/dL negati ve Not Available [facility] [address] [facility] [address], [place], [address], 08/14/2024 12:37:30 08/14/20 24 08/14/2024 UA WITHO UT MICRO - CS URISC AN urobilinogen - uriscan NORMAL mg/dL normal Not Available [facility] [address] [facility] [address], [place], [address], 08/14/2024 12:37:30 08/14/20 24 08/14/2024 UA WITHO UT MICRO - CS URISC AN ketones - uriscan NEGATI VE mg/dL negati ve Not Available [facility] [address] [facility] [address], [place], [address], 08/14/2024 12:37:30 08/14/20 24 08/14/2024 UA WITHO UT MICRO - CS URISC AN protein - uriscan NEGATI VE mg/dL negati ve Not Available [facility] [address] [facility] [address], [place], [address], 08/14/2024 12:37:30 08/14/2008/14/2024 UA WITHO UT MICRO - CS URISC AN nitrites - uriscan NEGATI VE negati ve Not Available [facility] [address] [facility] [address], [place], [address], 08/14/2024 12:37:30 08/14/20 24 08/14/2024 UA WITHO UT MICRO - CS URISC AN glucose - uriscan NEGATI VE mg/dL negati ve Not Available [facility] [address] [facility] [address], [place], [address], 08/14/2024 12:37:30 08/14/20 24 08/14/2024 UA WITHO UT MICRO - CS URISC AN pH - uriscan 5.00 5.00-9 .00 Not Available [facility] [address] [facility] [address], [place], [address], 08/14/2024 12:37:30 08/14/2008/14/2024 UA WITHO UT MICRO - CS URISC AN sp. gravity - uriscan <=1.01 1.01-1 .03 Not Available [facility] [address] [facility] [address], [place], [address], 08/14/2024 12:37:30 08/14/2008/14/2024 UA WITHO UT MICRO - CS URISC AN leukocytes - uriscan NEGATI VE negati ve Not Available [facility] [address] [place] [address] [address], [place], [address], 08/14/2024 12:37:30 08/14/20 24 08/14/2024 UA WITHO UT MICRO - CS URISC AN color - uriscan YELLOW lt. yellow ;yello w Not Available [facility] [address] [place] [address] [address], [place], [address], 08/14/2024 12:37:30 08/14/20 24 08/14/2024 UA WITHO UT MICRO - CS URISC AN clarity - uriscan CLEAR clear Not Available [facility] [address] [place] [address] [address], [place], [address], 08/14/2024 12:37:30 08/14/20 24 08/14/2024 UA WITHO UT MICRO - CS URISC AN total urine volume (mL) 50 /mL ----- ----- ----- ----- ----- ----- ----- ----- ----- ----- ----- ----- ----- ----- ---- *Monae caal note the follo wing minim um quant ities for addit ional urine testi ng: - Atypi cals: 3 mL - Cytol ogy: 20 mL - GC/CH : 2 mL - FISH: 30 mL - Atypi cals w/ GC/CH : 5 mL - Cytol ogy PLUS FISH: 50 mL - Urine Cultu re: 3 mL ----- ----- ----- ----- ----- ----- ----- ----- ----- ----- ----- ----- ----- ----- ---- This lab resul t is being provi ded to you and your provi andrew at the same time in compl iance with the Centu ry Cures Act. Your provi andrew may not have had time to revie w and make recom menda tions based on the resul t. Sammy e allow up to one week for provi andrew revie w. Not Available [facility] [address] [facility] [address], [place], [address], 08/14/2024 12:37:30 08/14/20 24 08/14/2024 UA MICRO SCOPI C U-WBC 0 - 2 [hpf] 0 - 2 Not Available [facility] [address] [facility] [address], [place], [address], 08/14/2024 12:37:32 08/14/20 24 08/14/2024 UA MICRO SCOPI C U-RBC 0 - 2 [hpf] 0 - 2 Not Available [facility] [address] [facility] [address], [place], [address], 08/14/2024 12:37:32 08/14/20 24 08/14/2024 UA MICRO SCOPI C bacteria MANY [hpf] none;r are abnormal Not Available [facility] [address] [facility] [address], [place], [address], 08/14/2024 12:37:32 08/14/20 24 08/14/2024 UA MICRO SCOPI C squamous epi NEGATI VE /lpf negati ve,sma ll This lab resul t is being provi ded to you and your provi andrew at the same time in compl iance with the Centu ry Cures Act. Your provi andrew may not have had time to revie w and make recom menda tions based on the resul t. Sammy e allow up to one week for provi andrew revie w. Not Available [facility] [address] [facility] [address], [place], [address], 08/14/2024 12:37:32 08/14/20 24 08/14/2024 URINE CYTOL OGY urine cytology BENIGN normal Not Available [facility] [place] [address], [place], [address], 08/18/2024 10:27:12 08/22/20 24 08/21/2024 CT, urogr am No observ ation record ed. [facility] [address], [place], [address], 08/26/2024 10:20:36 Result Notes None recorded. Problems Name Problem SNOMED Code Status Onset Date Resolution Date Notes Provider Name and Address Organization Details Recorded Time Chronic retention of urine 902800952 Active 2023 Phu Meath null, [facility] 4 14:26:44 [place] hematuria 326521735 Active 2023 Phu Meat null, [facility] 4 14:26:53 Neurogenic urinary bladder 456771416 Active 2023 Phu Meath null, [facility] 4 14:27:18 Hypothyroidism 63457469 Active 2023 Phu Meat null, [facility] 4 14:30:01 Gastroesophage al reflux disease 499762243 Active 2023 Phu Meat null, [facility] 4 14:30:05 Problem Notes None recorded. Procedures Surgical History Date Name Laterality Status Provider Name and Address Organization Details Recorded Time 09/18/20 24 Cystoscopy- male completed Darryl Willoughby MD [address] [facility],[address], [place], [address], [facility] 09/18/2024 13:40:29 08/14/20 24 SP Tube change completed Clifford Torres [facility] 08/14/2024 12:15:29 08/14/20 24 COMPLEX VISIT completed JOSEPH CARR [address] [facility], [place], [address], [facility] 08/14/2024 11:49:17 07/03/20 24 SP Tube change completed Soraida Wood [facility] 07/03/2024 11:46:09 06/05/20 24 SP Tube change completed Davin Mcclendon [facility] 06/05/2024 12:11:12 05/08/20 24 SP Tube change completed Ermelinda Lopes [facility] 05/08/2024 12:29:28 04/03/20 24 SP Tube change completed Milena Higuera [facility] 04/03/2024 12:11:58 02/28/20 24 SP Tube change completed Angeline Walters [facility] 02/28/2024 12:31:57 01/31/20 24 SP Tube change completed Aranza Archuleta [facility] 01/31/2024 11:57:52 01/03/20 24 SP Tube change completed Ermelinda Lopes [facility] 01/03/2024 12:20:32 12/06/19 24 SP Tube change completed Angeline Walters [facility] 12/06/2023 12:46:05 11/08/19 24 SP Tube change completed Ermelinda Lopes [facility] 11/08/2023 14:39:44 10/11/20 23 SP Tube change completed Ermelinda Lopes [facility] 10/11/2023 11:39:17 09/14/20 23 SP Tube change completed Davin Mcclendon [facility] 09/14/2023 13:18:16 08/16/20 23 SP Tube change completed Yvette Montano [facility] 08/16/2023 12:02:53 07/05/20 23 SP Tube change completed Yvette Montano [facility] 07/05/2023 12:22:31 06/07/20 23 SP Tube change completed Rowan Williamson [facility] 06/07/2023 12:28:05 05/10/20 23 SP Tube change completed Phu De La Cruz [facility] 05/10/2023 12:47:33 04/12/20 23 SP Tube change completed Yvette Montano [facility] 04/12/2023 12:31:52 03/08/20 23 SP Tube change completed Aranza Archuleta [facility] 03/08/2023 13:22:09 02/09/20 23 SP Tube change completed Aranza Archuleta [facility] 02/08/2023 11:52:52 01/05/20 23 SP Tube change completed Aranza Archuleta [facility] 01/04/2023 11:45:26 12/07/19 23 SP Tube change completed Aranza Acrhuleta [facility] 12/07/2022 12:13:16 11/09/19 23 SP Tube change completed Jennie Lambert [facility] 11/09/2022 16:56:31 10/05/20 22 SP Tube change completed Bushra Floyd [facility] 10/05/2022 16:33:40 08/31/20 22 SP Tube change completed Jayla Rebollar [facility] 08/31/2022 11:05:23 08/03/20 22 Urethral Catheter Change completed Jayla Rebollar [facility] 08/03/2022 11:14:48 07/06/20 22 SP [facility] 07/06/2022 12:57:26 06/08/20 22 SP Tube change completed Juanita Jay [facility] 06/08/2022 11:35:54 05/04/20 22 SP Tube change completed LÁZARO STEPHEN, [address],[place] [address], [place], [address], [facility] 05/04/2022 10:47:46 03/09/20 22 SP Tube change completed Kassidy Marina [facility] 03/09/2022 12:25:17 02/10/20 22 SP Tube change completed Kassidy Bar [facility] 02/09/2022 13:42:52 01/14/20 22 SP Tube change completed Lola Cadena [facility] 01/13/2022 14:38:39 11/10/19 22 Urethral Catheter Change completed Maeve Begum [facility] 11/10/2021 13:17:13 10/13/20 21 Urethral Catheter Change completed Maeve Begum [facility] 10/13/2021 13:24:07 08/25/20 21 Urethral Catheter Change completed Kassidy Bar [facility] 08/25/2021 10:18:16 07/28/20 21 Urethral Catheter Change completed Kassidy Bar [facility] 07/28/2021 09:47:05 06/30/20 21 Urethral Catheter Change completed Kassidy Bar [facility] 06/30/2021 15:47:53 06/02/20 21 Urethral Catheter Change completed Kassidy Bar [facility] 06/02/2021 11:40:17 05/05/20 21 Urethral Catheter Change completed Kassidy Bar [facility] 05/06/2021 09:12:30 04/07/20 21 Urethral Catheter Change completed Maeve Begum [facility] 04/07/2021 11:21:21 03/03/20 21 Urethral Catheter Change completed Kassidy Bar [facility] 03/03/2021 10:51:43 02/04/20 21 Urethral Catheter Change completed Kassidy Bar [facility] 02/03/2021 10:53:42 01/07/20 21 Urethral Catheter Change completed Kassidy Bar [facility] 01/06/2021 13:10:24 12/09/19 21 Urethral Catheter Change completed Kassidy Bar [facility] 12/09/2020 11:35:18 11/11/19 21 Urethral Catheter Change completed Kassidy Bar [facility] 11/11/2020 15:21:57 10/07/20 20 Urethral Catheter Change completed Maeve Begum [facility] 10/07/2020 11:07:34 09/09/20 20 Urethral Catheter Change completed Kassidy Bar [facility] 09/09/2020 11:17:32 08/05/20 20 Urethral Catheter Change completed Mckenna Mendosa [facility] 08/05/2020 11:32:29 07/01/20 20 Urethral Catheter Change completed Kassidy Bar [facility] 07/01/2020 14:32:03 06/03/20 20 Urethral Catheter Change completed Sandie Moreno [facility] 06/03/2020 12:09:51 04/29/20 20 Urethral Catheter Change completed Kassidy Bar [facility] 04/29/2020 16:40:30 03/04/20 20 Insert temp bladder cath completed Not Available [facility] 08/05/2020 15:54:52 01/29/20 20 Insert temp bladder cath completed Not Available [facility] 04/08/2020 13:43:57 01/01/20 20 Insert temp bladder cath completed Not Available [facility] 04/08/2020 13:43:57 12/04/19 Insert temp bladder cath completed Not Available [facility] 04/08/2020 13:43:57 10/30/19 20 Insert temp bladder cath completed Not Available [facility] 04/08/2020 13:43:58 10/09/20 19 Insert temp bladder cath completed Not Available [facility] 04/08/2020 13:43:58 08/28/20 19 Insert temp bladder cath completed Not Available [facility] 04/08/2020 13:43:58 07/31/20 19 Insert temp bladder cath completed Not Available [facility] 04/08/2020 13:43:58 07/03/20 19 Insert temp bladder cath completed Not Available [facility] 04/08/2020 13:43:58 05/29/20 19 Insert temp bladder cath completed Not Available [facility] 04/08/2020 13:43:58 05/08/20 19 Insert temp bladder cath completed Not Available [facility] 04/08/2020 13:43:57 03/20/20 19 Insert temp bladder cath completed Not Available [facility] 04/08/2020 13:43:57 02/21/20 19 Insert temp bladder cath completed Not Available [facility] 04/08/2020 13:43:58 01/24/20 19 Insert temp bladder cath completed Not Available [facility] 04/08/2020 13:43:57 12/26/19 19 Insert temp bladder cath completed Not Available [facility] 04/08/2020 13:43:57 11/21/19 19 Insert temp bladder cath completed Not Available [facility] 04/08/2020 13:43:57 10/24/20 18 Insert temp bladder cath completed Not Available [facility] 04/08/2020 13:43:58 09/26/20 18 Insert temp bladder cath completed Not Available [facility] 04/08/2020 13:43:58 08/22/20 18 Insert temp bladder cath completed Not Available [facility] 04/08/2020 13:43:57 07/25/20 18 Insert temp bladder cath completed Not Available [facility] 04/08/2020 13:43:58 06/27/20 18 Insert temp bladder cath completed Not Available [facility] 04/08/2020 13:43:57 05/24/20 18 Insert temp bladder cath completed Not Available [facility] 04/08/2020 13:43:57 04/25/20 18 Insert temp bladder cath completed Not Available [facility] 04/08/2020 13:43:58 02/28/20 18 Insert temp bladder cath completed Not Available [facility] 04/08/2020 13:43:57 01/25/20 18 Insert temp bladder cath completed Not Available [facility] 04/08/2020 13:43:57 01/04/20 18 Electro-uroflowmet ry first completed Not Available [facility] 04/08/2020 13:43:57 01/04/20 18 Cystometrogram w/vp customer development&up completed Not Available [facility] 04/08/2020 13:43:58 01/04/20 18 Insert temp bladder cath completed Not Available [facility] 04/08/2020 13:43:58 01/04/20 18 Intraabdominal pressure test completed Not Available [facility] 04/08/2020 13:43:58 01/04/20 18 Anal/urinary muscle study completed Not Available [facility] 04/08/2020 13:43:58 12/20/19 18 Cystoscopy completed Not Available [facility] 04/08/2020 13:43:57 12/20/19 18 Insert temp bladder cath completed Not Available [facility] 04/08/2020 13:43:58 10/29/19 13 colonoscopy completed Davin Mcclendon [facility] 09/14/2023 13:10:07 12/12/18 78 Removal of gallbladder completed Not Available [facility] 04/08/2020 13:43:57 Imaging Results Imaging Date Name Status LastModified by Organiz ation Details LastModified Time 08/21/2024 CT, urogram completed [facility] [address], [place], [address], 08/26/2024 10:20:36 Procedure Notes None recorded. Medical Equipment None Reported. Allergies Allergen ID Allergen Name Allergen Category Reaction Reaction Severity Criticality Documentation Date Start Date Code Code System Note Provider Name and Address Organization Details Recorded Time 951085 Demerol medicatio n Not available Not available Not available 04/07/2020 74717 1 RxNorm Not Available [facility] 0 23:53:45 961623 ampicilli n medicatio n Not available Not available Not available 04/07/2020 733 RxNorm Not Available [facility] 0 23:53:45 758321 Penicilli n Not available Not available Not available Not available 04/07/2020 90086 RxNorm Not Available [facility] 0 23:53:45 Medications Name Sig Start Date [...] Updated DateTime 08/14/2024 167.64 cm Luma Quan [facility] 08/14/2024 11:21:37 Date Recorded Body height Body mass index (BMI) Body weight Provider Name and Address Organization Details Last Updated DateTime 08/14/2024 167.64 cm 25.8 kg/m2 70383.78 g Clifford Torres [facility] 08/14/2024 11:45:36 Date Recorded Body height Provider Name an d Address Organization Details Last Updated DateTime 09/18/2024 167.64 cm Phu De La Cruz [facility] 12:01:34 Social History Question Answer Notes LastModified by Organizat ion Details LastModified Time Tobacco Smoking Status Former Smoker Not Available [facility] 04/08/2020 02:45:12 What Is Your Level Of Alcohol Consumption? Occasional 1 Drink Per Month. Information not available 08/14/2024 What Is Your Level Of Caffeine Consumption? Occasional Information not available 06/03/2020 How Much Tobacco Do You Chew? None Information not available 06/03/2020 Are You Currently Employed? No Information not available 10/13/2021 Do You Or Have You Ever Used E-cigarettes Or Vape? Never Used Electronic Cigarettes Information not available 06/03/2020 When Did You Quit Smoking? 16+yearssincel [email or web address] Information not available 01/13/2022 Race White Information n ot available 04/08/2020 Ethnicity Not /Latin o Information not available 06/03/2020 Preferred Language Nepali [email or web address] Information not available 10/13/2021 Recreational Drug Use No [email or web address] Information not available 10/13/2021 Could You Be ? No [email or web address] Information not available 10/13/2021 Marital Status Informati on not available 04/08/2020 What Was The Date Of Your Most Recent Tobacco Screening? 09/18/2024 Information not available 09/18/2024 Have You Ever Been Counseled For Unhealthy Alcohol Use? No Information not available 08/14/2024 What Is Your Relationship Status? Unknown Information not available 01/13/2022 Are You Sexually Active? No [email or web address] Information not available 10/13/2021 Do You Or Have You Ever Used Smokeless Tobacco? Never Used Smokeless Tobacco Information not available 06/03/2020 How Much Tobacco Do You Smoke? No Information not available 09/18/2024 Do You Use Any Illicit Or Recreational Drugs? No Information not available 10/13/2021 Has Tobacco Cessation Counseling Been Provided? No Information not available 09/18/2024 How Many Years Have You Smoked Tobacco? [...] :Father Heart Disease:Mother Medical History Condition Response Other N High Blood Pressure Y Kidney Stones N Depression N Lung Disease N GERD/Acid Reflux N Diabetes N Sexually Transmitted Infection N Bleeding Disorder N Cancer N High Cholesterol N Heart Disease N Immunizations Vaccine Type Date Status Provider Name and Address Organization Details Recorded Time COVID-19, mRNA, LNP-S, PF, 30 mcg/0.3 mL dose 12/07/2020 completed Tomasa ballesteros [facility] 01/13/2022 11:30:27 Influenza, split virus, trivalent, preservative 08/11/2008 completed Tomasa ballesteros [facility] 01/13/2022 11:30:27 Influenza, split virus, trivalent, PF 09/01/2011 completed Tomasa ballesteros [facility] 01/13/2022 11:30:27 Influenza, high-dose, quadrivalent, PF 09/21/2021 completed Tomasa ballesteros [facility] 01/13/2022 11:30:27 Influenza, split virus, trivalent, preservative 08/26/2009 completed Tomasa Juares null, [facility] 01/13/2022 11:30:27 Tdap 08/14/2019 completed Tomasa Juares null, [facility] 01/13/2022 11:30:27 COVID-19, mRNA, LNP-S, PF, 30 mcg/0.3 mL dose 12/28/2020 completed Tomasa Juares null, [facility] 01/13/2022 11:30:27 Influenza, high-dose, trivalent, PF 08/14/2019 completed Tomasa Juares null, [facility] 01/13/2022 11:30:27 COVID-19, mRNA, LNP-S, PF, 30 mcg/0.3 mL dose 10/18/2021 completed Juanita Jay null, [facility] 06/08/2022 11:35:03 pneumococcal polysaccharide PPV23 08/11/2008 completed Prema Marmolejo null, [facility] 06/08/2021 16:56:42 Past Encounters Encounter ID Performer Location Encounter Start Date Encounter Closed Date Diagnosis/Indication Diagnosis SNOMED-CT Code Diagnosis ICD10 Code [id number] Kassidy Bar [facility] [address] [place] [address] [phone] 0 04/29/2020 11:22:01 04/29/2020 17:33:23 Retention of urine 844520360 R33.8 [id number] Torres Gonzalez [facility] [address] [place] [address] [phone] 0 06/03/2020 11:27:00 06/03/2020 14:47:45 Retention of urine [id number] R33.8 [id number] Kassidy Bar [facility] [address] [place] [address] 47309-828 0 07/01/2020 10:51:18 07/01/2020 14:59:18 Retention of urine [id number] R33.8 [id number] Mckenna Mendosa [facility] [address] [place] [address] [phone] 0 08/05/2020 10:46:11 08/05/2020 12:21:08 Retention of urine [id number] R33.8 [id number] [facility] [address] [place] [address] 39676-180 0 09/09/2020 10:49:56 09/10/2020 00:32:53 Retention of urine [id number] R33.8 [id number] Maeve [facility] [address] [place] [address] 08519-371 0 10/07/2020 10:47:47 10/07/2020 11:09:02 Retention of urine [id number] R33.8 [id number] [facility] [address] [place] [address] 33404-636 0 11/11/2020 14:50:18 11/11/2020 16:11:37 Retention of urine [id number] R33.8 [id number] [facility] [address] [place] [address] 87544-531 0 12/09/2020 10:32:17 12/09/2020 12:13:16 Retention of urine [id number] R33.8 [id number] Kassidy Poeo ury [address] [place] [address] 82277-898 0 01/06/2021 11:39:12 01/06/2021 13:37:59 Retention of urine [id number] R33.8 [id number] Kassidy [facility] [address] [place] [address] 35270-112 0 02/03/2021 10:22:31 02/03/2021 11:39:22 Retention of urine [id number] R33.8 [id number] [facility] [address] [place] [address] 98417-032 0 03/03/2021 10:25:06 03/03/2021 12:32:54 Retention of urine [id number] R33.8 [id number] [facility] [address] [place] [address] 34210-170 0 04/07/2021 10:30:29 04/07/2021 11:22:12 Retention of urine [id number] R33.8 [id number] [facility]idy [facility] [address] [place] [address] 24474-005 0 05/05/2021 10:27:49 05/06/2021 11:37:41 Retention of urine [id number] R33.8 [id number] [facility]idy [facility] [address] 69565-336 0 06/02/2021 10:55:44 06/02/2021 12:47:14 Retention of urine [id number] R33.8 [id number] Torres [facility] [address] 37094-913 0 06/02/2021 10:56:30 06/02/2021 12:13:21 Retention of urine [id number] R33.8 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 [id number] Kassidy [facility] [address] 58042-156 0 06/30/2021 14:22:02 06/30/2021 16:18:02 Retention of urine [id number] R33.8 [id number] Kassidy G[facility]ayroNasrin[facility] [address] 19838-729 0 07/28/2021 10:48:36 07/28/2021 13:13:05 Retention of urine [id number] R33.9 [id number] Kassidy [facility] [address] 81126-371 0 08/25/2021 10:12:11 08/25/2021 10:33:31 Retention of urine [id number] R33.9 [id number] PAUL KHAN JOSEPH [facility] [address] 16341-805 0 10/13/2021 11:15:27 10/13/2021 15:20:01 Neurogenic urinary bladder [id number] N31.9 [id number] Maeve Begum [facility] [address] [place] [address] 24276-492 0 10/13/2021 10:25:19 10/13/2021 13:25:35 Retention of urine [id number] R33.9 [id number] Maeve Begum [facility] [address] [facility],[address] [place] [address] [place] [address] 04310-282 0 11/10/2021 13:02:28 11/10/2021 13:49:33 Retention of urine [id number] R33.9 [id number] Lola Cadena [facility] [address] [place] [address],[address] [place] [address] 87704-494 0 01/13/2022 11:02:35 01/16/2022 09:41:00 Neurogenic urinary bladder 408148106 N31.9 Primary er ectile dysfunction [id number] N52.9 [id number] Kassidy Bar [facility] [address] [place] [address],[address] [place] [address] 75673-666 0 02/09/2022 10:38:45 02/09/2022 13:57:20 Retention of urine [id number] R33.9 [id number] Kassidy Bar [facility] [address] [place] [address],[address] [place] [address] 98044-478 0 03/09/2022 10:27:26 03/09/2022 12:38:02 Retention of urine [id number] R33.9 [id number] JOSEPH BARBA [facility] [address] [place] [address],[address] [place] [address] 26618-812 0 05/04/2022 08:41:33 05/04/2022 11:00:28 Primary erectile dysfunction 424018540 N52.9 Neurogenic urinary bladder [id number] N31.9 [id number] Juanita Jay [facility] [address] [place] [address],[address] [place] [address] 64434-861 0 06/08/2022 10:29:49 06/08/2022 13:32:40 Urinary tract infectious disease 68933972 N39.0 Retention of urine [id number] R33.9 [id number] Maeve Begum [facility] [address] [facility],[address] [place] [address] [place] [address] 43343-381 0 07/06/2022 12:10:23 07/06/2022 12:58:15 Retention of urine [id number] R33.9 [id number] Jayla Rebollar [facility] [address] 26187-024 0 08/03/2022 10:47:35 08/03/2022 15:10:48 Retention of urine [id number] R33.9 [id number] Jayla Rebollar [facility] [address] 77200-901 0 08/31/2022 10:35:46 08/31/2022 11:18:21 Retention of urine [id number] R33.9 [id number] Bushra Floyd [facility] [address] 25661-158 0 10/05/2022 15:46:21 10/05/2022 17:30:37 Retention of urine [id number] R33.9 [id number] Jennie Lambert [facility] [address] [place] [address] 79498-601 0 11/09/2022 15:36:32 11/09/2022 17:46:18 Retention of urine [id number] R33.9 [id number] Aranza Rocheevering [facility] [address] 75610-200 0 12/07/2022 11:24:14 12/07/2022 12:28:13 Retention of urine [id number] R33.9 [id number] Aranza Rocheevering [facility] [address] 84470-150 0 01/04/2023 11:13:52 01/04/2023 11:47:09 Retention of urine [id number] R33.9 [id number] Aranza Rocheeverjim [facility] [address] [place] [address] 37488-236 0 02/08/2023 11:42:43 02/08/2023 12:45:15 Retention of urine [id number] R33.9 [id number] Aranza Archuleta [facility] [address] [facility],[place] [place] [address] [place] [address] 88781-639 0 03/08/2023 11:40:06 03/08/2023 12:38:34 Retention of urine [id number] R33.9 [id number] Yvette Montano [facility] [address] [facility],[address] [place] [address] 84967-870 0 04/12/2023 11:36:19 04/12/2023 12:46:10 Retention of urine [id number] R33.9 [id number] Phu De La Cruz [facility] [address] [place] [address],[address] [place] [address] 17957-858 0 05/10/2023 11:46:49 05/10/2023 13:01:49 Retention of urine [id number] R33.9 [id number] Rowan Williamson [facility] [address] [place] [address],[address] [place] [address] 07690-848 0 06/07/2023 11:49:03 06/07/2023 12:33:50 [id number] Yvette Montano [facility] [address] [place] [address],[address] [place] [address] 02070-782 0 07/05/2023 11:43:32 07/05/2023 12:25:24 Prostate specific antigen above reference range [id number] R97.20 [id number] JOSEPH CARR [facility] [address] [place] [address],[address] [place] [address] 77301-149 0 08/16/2023 11:04:39 08/16/2023 12:27:29 Chronic retention of urine [id number] R33.8 Primary er ectile dysfunction 509295796 N52.9 Prostate s pecific antigen above reference range 392127591 R97.20 [id number] Davin Mcclendon [facility] [address] [facility],[place] [place] [address] [place] [address] 43080-162 0 09/14/2023 12:11:10 09/14/2023 13:30:30 Chronic retention of urine [id number] R33.8 [id number] Ermelinda Lopes [facility] [address] [facility],[place] [place] [address] [place] [address] 40494-914 0 10/11/2023 10:43:49 10/11/2023 11:52:17 Chronic retention of urine [id number] R33.8 [id number] Ermelinda Poeo ury [address] [place] [address],[facility] e [address] [place] [address] 12406-641 0 11/08/2023 13:31:39 11/08/2023 14:53:17 Chronic retention of urine [id number] R33.8 [id number] Angeline Poeo ury [address] [place] [address],[facility] e [address] [place] [address] 78071-730 0 12/06/2023 11:13:19 12/06/2023 12:50:08 Chronic retention of urine [id number] R33.8 [id number] Ermelinda Poeo [address],[facility] e [address] [place] [address] 18839-749 0 01/03/2024 11:28:54 01/03/2024 13:45:36 Chronic retention of urine [id number] R33.8 [id number] Aranza Poeo ury [address] [place] [address],[facility] e [address] [place] [address] 13092-235 0 01/31/2024 11:18:16 01/31/2024 13:18:49 Chronic retention of urine [id number] R33.8 [id number] Angeline Poeo ury [address] [place] [address],[facility] e [address] [place] [address] 40683-582 0 02/28/2024 11:09:09 02/28/2024 14:18:25 Chronic retention of urine [id number] R33.8 [id number] Milena Poeo ury [address] [place] [address],[facility] e [address] [place] [address] 58453-184 0 04/03/2024 11:07:34 04/03/2024 12:18:13 Chronic retention of urine [id number] R33.8 [id number] Ermelinda Poeo ury [address] [place] [address],[place] [address] [place] [address] 02548-821 0 05/08/2024 11:25:14 05/08/2024 13:03:51 Chronic retention of urine [id number] R33.8 [id number] Davin Mcclendon [facility] [address] [place] [address],[place] [address] [place] [address] 47822-671 0 06/05/2024 11:11:35 06/06/2024 08:34:12 Chronic retention of urine [id number] R33.8 [id number] Soraida Wood [facility] [address] [place] [address],[place] [address] [place] [address] 36074-546 0 07/03/2024 11:07:34 07/04/2024 10:04:49 Chronic retention of urine [id number] R33.8 [id number] PAUL BILLJOSEPH GALVEZ [facility] [address] [place] [address],[facility] e [address] [place] [address] 54385-821 0 08/14/2024 11:19:03 08/14/2024 16:16:13 [place] hematuria 030209618 R31.0 Neurogenic urinary bladder 226436631 N31.9 [id number] Clifford Torres [facility] [address] [place] [address],[facility] e [address] [place] [address] 98159-689 0 08/14/2024 11:24:33 08/14/2024 12:16:10 Chronic retention of urine [id number] R33.8 [id number] Darryl Willoughby [facility] [address] [place] [address] [place] [address] 60452-842 0 09/18/2024 11:53:38 09/19/2024 11:08:58 [place] hematuria 288129951 R31.0 Retention of urine 67548 4002 R33.9 Lower urin lázaro tract symptoms due to benign prostatic hypertrophy 8669033338 9101 N40.1 Prostate mass 925677139 R19.09 Health Concerns Section Related Observation LastModified by Organization Detai ls LastModified Time None Recorded Concern Status LastModified by Organization Details LastModified Time None Recorded Advance Directives Directive None Recorded Payers Encounter Date Sequence Insurance Name Policy Number Policy Hammond Covered Member ID Hammond Member ID Guarantor Name 06/05/2024 1 [employer] - DOS ON OR AFTER 19 (MEDICARE REPLACEMENT/ ADVANTAGE - HMO) [id number] Talib Walden [id number] Talib Walden 07/03/2024 1 [employer] - DOS ON OR AFTER 19 (MEDICARE REPLACEMENT/ ADVANTAGE - HMO) [id number] Talib Walden [id number] Talib Walden 08/14/2024 1 [employer] - DOS ON OR AFTER 19 (MEDICARE REPLACEMENT/ ADVANTAGE - HMO) [id number] Talib Walden [id number] Talib Walden 08/14/2024 1 [employer] - DOS ON OR AFTER 19 (MEDICARE REPLACEMENT/ ADVANTAGE - HMO) [id number] Talib Walden [id number] Talib Walden 09/18/2024 1 [employer] - DOS ON OR AFTER 19 (MEDICARE REPLACEMENT/ ADVANTAGE - HMO) [id number] Talib Walden [id number] Talib Walden Notes Date Note Type Note Provider Name and Address Organization Details Recorded Time 08/14/2024 text/html 08/14/24: Nakia wills is an 84-year-old male presents today for [...] patient back in yearly basis. JOSEPH CARR [address] [place] [address],[address], [place], [address], [facility] 08/14/2024 11:51:35 09/18/2024 text/html This is an 84 ye ar old male who is here for the ongoing management of chronic urinary retention, benign prostatic hyperplasia with lower urinary tract symptoms, a prostate mass, and gross hematuria. He has been in chronic urinary retention since 2020 and has managed his bladder with a suprapubic catheter since that time.He has a long-standing history of significant prostatic enlargement and has undergone three prior negative prostate biopsies.He has had periodic blood per urethra over the years which is worse with instrumentation or strenuous activity.He has had recurrent episodes of this in 2023 which have at times been persistent for several days.He underwent a CT urogram on 08/21/2024 which was notable for a massively enlarged prostat with an anterior peripherally calcified mass. Darryl Willoughby MD [address] [facility],[address], [place], [address], [facility] 09/18/2024 13:42:42
--- OUTSIDE RECORDS SUMMARY | 2024-09-30 08:02 | XMS_ITS | Clinical Summary ---
Author Organization [facility] Address [place], [place] [address] Care Team Providers Care [facility] Name Role Phone David Lu MD Primary Care Provider [phone] Allergies Active Allergy Reactions Criticality Noted Date [...] Comments Blood Pressure 130/66 12/01/2021 1:34 PM RECRUITMENT COORDINATOR Pulse 72 12/01/2021 1:34 PM RECRUITMENT COORDINATOR Temperature 37.1 C (98.8 F) 12/01/2021 10:20 AM RECRUITMENT COORDINATOR Respiratory Rate 16 12/01/2021 1:34 PM RECRUITMENT COORDINATOR Oxygen Saturation 86% 12/01/2021 1:34 PM RECRUITMENT COORDINATOR Inhaled Oxygen Concentration - - Weight 74.8 kg (165 lb) 12/01/2021 10:20 AM RECRUITMENT COORDINATOR Height 167.6 cm (5' 6) 12/01/2021 10:20 AM RECRUITMENT COORDINATOR Body Mass Index 26.63 12/01/2021 10:20 AM RECRUITMENT COORDINATOR Plan of Treatment Health Maintenance Due Date [...] 06/29/2024 09/01/2011 , 08/26/2009, 08/11/2008 Care Teams [facility] Relationship Specialty Start Date End Date David Lu MD [address] [facility] [place] [address] PCP - General Family Practice 10/20/10
--- OUTSIDE RECORDS SUMMARY | 2024-09-30 08:03 | XMS_ITS | Continuity of Care Document ---
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 [...] available Not available Not available Lab None recorded. Referral None recorded. Procedures None recorded. Surgeries None recorded. Imaging MRI, prostate, w/wo contrast [id number] [facility], [address] [place], [address], 09/19/2024 11:08:58 Medication Orders None recorded. Patient TargetsNo targets recorded. Patient Instructions Encounter Date Encounter Id Patient Instructions Last Modified By Organization Details Last Modified Time 09/18/2024 [id number] Gross hematuria/Prostat ic mass: I suspect this is a calcified [...] Abnormal Flag Note LastModifiedBy Organization Detail LastModifiedTime 08/22/2008/21/2024 CT, urogr am No observ ation record ed. [facility] [address] [place], [address], 08/26/2024 10:20:36 Result Notes None recorded. 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 Procedures Surgical History Date Name Laterality Status Provider Name and Address Organization Details Recorded Time 09/18/20 24 Cystoscopy- male completed Darryl Willoughby MD [address], [place], [address], [facility] 09/18/2024 13:40:29 08/14/20 24 SP Tube change completed Clifford Torres [facility] 08/14/2024 12:15:29 08/14/20 24 COMPLEX VISIT completed JOSEPH CARR [address], [place], [address], [facility] 08/14/2024 11:49:17 07/03/20 24 SP Tube change completed Soraida Wood [facility] 07/03/2024 11:46:09 06/05/20 24 SP Tube change completed Davin Mcclendon [facility] 06/05/2024 12:11:12 05/08/20 24 SP Tube change completed Ermelinda Lopes [facility] 05/08/2024 12:29:28 04/03/20 24 SP Tube change completed Milena Higuera [facility] 04/03/2024 12:11:58 02/28/20 24 SP Tube change completed Angeline Walters [facility] 02/28/2024 12:31:57 01/31/20 24 SP Tube change completed Aranza Archuleta [facility] 01/31/2024 11:57:52 01/03/20 24 SP Tube change completed Ermelinda Lopes [facility] 01/03/2024 12:20:32 12/06/19 24 SP Tube change completed [facility] 12/06/2023 12:46:05 11/08/19 24 SP Tube change completed Ermelinda Lopes [facility] 11/08/2023 14:39:44 10/11/20 23 SP Tube change completed Ermelinda Lopes [facility] 10/11/2023 11:39:17 09/14/20 23 SP Tube change completed Davin Mcclendon [facility] 09/14/2023 13:18:16 08/16/20 23 SP Tube change completed Yvette Montano [facility] 08/16/2023 12:02:53 07/05/20 23 SP Tube change completed Yvette Montano [facility] 07/05/2023 12:22:31 06/07/20 23 SP Tube change completed Rowan Williamson [facility] 06/07/2023 12:28:05 05/10/20 23 SP Tube change completed Phu De La Cruz [facility] 05/10/2023 12:47:33 04/12/20 23 SP Tube change completed Yvette Montano [facility] 04/12/2023 12:31:52 03/08/20 23 SP Tube change completed Aranza Vievering [facility] 03/08/2023 13:22:09 02/09/20 23 SP Tube change completed Aranza Vievering [facility] 02/08/2023 11:52:52 01/05/20 23 SP Tube change completed Aranza Vievering [facility] 01/04/2023 11:45:26 12/07/19 23 SP Tube change completed Aranza Vievering [facility] 12/07/2022 12:13:16 11/09/19 23 SP Tube change completed Jennie Lambert [facility] 11/09/2022 16:56:31 10/05/20 22 SP Tube change completed Bushra Floyd [facility] 10/05/2022 16:33:40 08/31/20 22 SP Tube change completed Jayla Rebollar [facility] 08/31/2022 11:05:23 08/03/20 22 Urethral Catheter Change completed Jayla Rebollar [facility] 08/03/2022 11:14:48 07/06/20 22 SP Tube change completed Maeve Begum [facility] 07/06/2022 12:57:26 06/08/20 22 SP Tube change completed Juanita Jay [facility] 06/08/2022 11:35:54 05/04/20 22 SP Tube change completed LÁZARO STEPHEN, PAC [address], [place], [address], [facility] 05/04/2022 10:47:46 03/09/20 22 SP Tube change completed Kassidy Bar [facility] 03/09/2022 12:25:17 02/10/20 22 SP Tube change completed Kassidy Bar [facility] 02/09/2022 13:42:52 01/14/20 22 SP Tube change completed Lola Cadena [facility] 01/13/2022 14:38:39 11/10/19 22 Urethral Catheter Change completed Maeve Begum [facility] 11/10/2021 13:17:13 10/13/20 21 Urethral Catheter Change completed Maeve Begum [facility] 10/13/2021 13:24:07 08/25/20 21 Urethral Catheter Change completed Kassidy Bar [facility] 08/25/2021 10:18:16 07/28/20 21 Urethral Catheter Change completed Kassidy Bar [facility] 07/28/2021 09:47:05 06/30/20 21 Urethral Catheter Change completed Kassidy Bar [facility] 06/30/2021 15:47:53 06/02/20 21 Urethral Catheter Change completed Kassidy Bar [facility] 06/02/2021 11:40:17 05/05/20 21 Urethral Catheter Change completed Kassidy Bar [facility] 05/06/2021 09:12:30 04/07/20 21 Urethral Catheter Change completed Maeve Begum [facility] 04/07/2021 11:21:21 03/03/20 21 Urethral Catheter Change completed Kassidy Bar [facility] 03/03/2021 10:51:43 02/04/20 21 Urethral Catheter Change completed Kassidy Bar [facility] 02/03/2021 10:53:42 01/07/20 21 Urethral Catheter Change completed Kassidy Bar [facility] 01/06/2021 13:10:24 12/09/19 21 Urethral Catheter Change completed Kassidy Bar [facility] 12/09/2020 11:35:18 11/11/19 21 Urethral Catheter Change completed Kassidy Yosvany [facility] 11/11/2020 15:21:57 10/07/20 20 Urethral Catheter Change completed Maeve Shy [facility] 10/07/2020 11:07:34 09/09/20 20 Urethral Catheter Change completed Kassidy Bar [facility] 09/09/2020 11:17:32 08/05/20 20 Urethral Catheter Change completed Mckenna Mendosa [facility] 08/05/2020 11:32:29 07/01/20 20 Urethral Catheter Change completed Kassidy Bar [facility] 07/01/2020 14:32:03 06/03/20 20 Urethral Catheter Change completed Sandie Moreno [facility] 06/03/2020 12:09:51 04/29/20 20 Urethral Catheter Change completed Kassidyroger Bar [facility] 04/29/2020 16:40:30 03/04/20 20 Insert temp bladder cath completed Not Available [facility] 08/05/2020 15:54:52 01/29/20 20 Insert temp bladder cath completed Not Available [facility] 04/08/2020 13:43:57 01/01/20 20 Insert temp bladder cath completed Not Available [facility] 04/08/2020 13:43:57 12/04/19 20 Insert temp bladder cath completed Not Available [facility] 04/08/2020 13:43:57 10/30/19 20 Insert temp bladder cath completed Not Available [facility] 04/08/2020 13:43:58 10/09/20 19 Insert temp bladder cath completed Not Available [facility] 04/08/2020 13:43:58 08/28/20 19 Insert temp bladder cath completed Not Available [facility] 04/08/2020 13:43:58 07/31/20 19 Insert temp bladder cath completed Not Available [facility] 04/08/2020 13:43:58 07/03/20 19 Insert temp bladder cath completed Not Available [facility] 04/08/2020 13:43:58 05/29/20 19 Insert temp bladder cath completed Not Available [facility] 04/08/2020 13:43:58 05/08/20 19 Insert temp bladder cath completed Not Available [facility] 04/08/2020 13:43:57 03/20/20 19 Insert temp bladder cath completed Not Available [facility] 04/08/2020 13:43:57 02/21/20 19 Insert temp bladder cath completed Not Available [facility] 04/08/2020 13:43:58 01/24/20 19 Insert temp bladder cath completed Not Available [facility] 04/08/2020 13:43:57 12/26/19 19 Insert temp bladder cath completed Not Available [facility] 04/08/2020 13:43:57 11/21/19 19 Insert temp bladder cath completed Not Available [facility] 04/08/2020 13:43:57 10/24/20 18 Insert temp bladder cath completed Not Available [facility] 04/08/2020 13:43:58 09/26/20 18 Insert temp bladder cath completed Not Available [facility] 04/08/2020 13:43:58 08/22/20 18 Insert temp bladder cath completed Not Available [facility] 04/08/2020 13:43:57 07/25/20 18 Insert temp bladder cath completed Not Available [facility] 04/08/2020 13:43:58 06/27/20 18 Insert temp bladder cath completed Not Available [facility] 04/08/2020 13:43:57 05/24/20 18 Insert temp bladder cath completed Not Available [facility] 04/08/2020 13:43:57 04/25/20 18 Insert temp bladder cath completed Not Available [facility] 04/08/2020 13:43:58 02/28/20 18 Insert temp bladder cath completed Not Available [facility] 04/08/2020 13:43:57 01/25/20 18 Insert temp bladder cath completed Not Available [facility] 04/08/2020 13:43:57 01/04/20 18 Electro-uroflowmet ry first completed Not Available [facility] 04/08/2020 13:43:57 01/04/20 18 Cystometrogram w/svp digital sales food & cooking&up completed Not Available [facility] 04/08/2020 13:43:58 01/04/20 18 Insert temp bladder cath completed Not Available [facility] 04/08/2020 13:43:58 01/04/20 18 Intraabdominal pressure test completed Not Available [facility] 04/08/2020 13:43:58 01/04/20 18 Anal/urinary muscle study completed Not Available [facility] 04/08/2020 13:43:58 12/20/19 18 Cystoscopy completed Not Available [facility] 04/08/2020 13:43:57 12/20/19 18 Insert temp bladder cath completed Not Available [facility] 04/08/2020 13:43:58 10/29/19 13 colonoscopy completed Davin Sarinaisabella Mcclendon [facility] 09/14/2023 13:10:07 12/12/18 78 Removal of gallbladder completed Not Available [facility] 04/08/2020 13:43:57 Imaging Results None recorded. Procedure Notes None recorded. Medical Equipment None Reported. Allergies Allergen ID Allergen Name Allergen Category Reaction Reaction Severity Criticality Documentation Date Start Date Code Code System Note Provider Name and Address Organization Details Recorded Time 20970531 Demerol medicatio n Not available Not available Not available 04/07/2020 04472 1 RxNorm Not Available [facility] 0 23:53:45 [id number] ampicilli n medicatio n Not available Not available Not available 04/07/2020 733 RxNorm Not Available [facility] 0 23:53:45 830270 Penicilli n Not available Not available Not available Not available 04/07/2020 29500 RxNorm Not Available [facility] 0 23:53:45 Medications Name Sig Start Date [...] Details Last Updated DateTime 09/18/[address] [facility] 12:01:34 Social History Question Answer Notes LastModified by Organizat ion Details LastModified Time Tobacco Smoking Status Former Smoker Not Available [facility] 04/08/2020 02:45:12 What Is Your Level Of Alcohol Consumption? Occasional 1 Drink Per Month. Information not available 08/14/2024 What Is Your Level Of Caffeine Consumption? Occasional Information not available 06/03/2020 How Much Tobacco Do You Chew? None Information not available 06/03/2020 Are You Currently Employed? No [email or web address] Information not available 10/13/2021 Do You Or Have You Ever Used E-cigarettes Or Vape? Never Used Electronic Cigarettes Information not available 06/03/2020 When Did You Quit Smoking? 17+yearssincel [email or web address] Information not available 01/13/2022 Race White [email or web address] Information n ot available 04/08/2020 Ethnicity Not /Latin o Information not available 06/03/2020 Preferred Language Yi [email or web address] Information not available 10/13/2021 Recreational Drug Use No [email or web address] Information not available 10/13/2021 Could You Be ? No [email or web address] Information not available 10/13/2021 Marital Status [email or web address] Informati on not available 04/08/2020 What Was The Date Of Your Most Recent Tobacco Screening? 09/18/2024 Information not available 09/18/2024 Have You Ever Been Counseled For Unhealthy Alcohol Use? No Information not available 08/14/2024 What Is Your Relationship Status? Unknown Information not available 01/13/2022 Are You Sexually Active? No [email or web address] Information not available 10/13/2021 Do You Or Have You Ever Used Smokeless Tobacco? Never Used Smokeless Tobacco Information not available 06/03/2020 How Much Tobacco Do You Smoke? No Information not available 09/18/2024 Do You Use Any Illicit Or Recreational Drugs? No [email or web address] Information not available 10/13/2021 Has Tobacco Cessation [...] High Blood Pressure Y Kidney Stones N Lung Disease N Depression N GERD/Acid Reflux N Sexually Transmitted Infection N Cancer N High Cholesterol N Diabetes N Bleeding Disorder N Heart Disease N Immunizations Vaccine Type Date Status Provider Name and Address Organization Details Recorded Time COVID-19, mRNA, LNP-S, PF, 30 mcg/0.3 mL dose 12/07/[address] [facility] 01/13/2022 11:30:27 Influenza, split virus, trivalent, preservative 08/11/2008 LARS Peralta [facility] 01/13/2022 11:30:27 Influenza, split virus, trivalent, PF 09/01/2011 completed Tomasa Juares null, [facility] 01/13/2022 11:30:27 Influenza, high-dose, quadrivalent, PF 09/21/2021 completed Tomasafelipa Juares null, [facility] 01/13/2022 11:30:27 Influenza, split virus, trivalent, preservative 08/26/2009 completed Tomasa Juares null, [facility] 01/13/2022 11:30:27 Tdap 08/14/2019 completed Tomasa Juares null, [facility] 01/13/2022 11:30:27 COVID-19, mRNA, LNP-S, PF, 30 mcg/0.3 mL dose 12/28/2020 completed Tomasafelipa Juares null, [facility] 01/13/2022 11:30:27 Influenza, high-dose, trivalent, PF 08/14/2019 completed Tomasa Juares null, [facility] 01/13/2022 11:30:27 COVID-19, mRNA, LNP-S, PF, 30 mcg/0.3 mL dose 10/18/2021 completed Juanita Jay null, [facility] 06/08/2022 11:35:03 pneumococcal polysaccharide PPV23 08/11/2008 [facility] 16:56:42 Past Encounters Encounter ID Performer Location Encounter Start Date Encounter Closed Date Diagnosis/Indication Diagnosis SNOMED-CT Code Diagnosis ICD10 Code [id number] Darrly Willoughby MD [email or web address] [address] [place] [address] 09/18/2024 11:53:38 09/19/2024 11:08:58 [place] hematuria 753320719 R31.0 Retention of urine 43526 4002 R33.9 Lower urin lázaro tract symptoms due to benign prostatic hypertrophy 5602649200 9101 N40.1 Prostate mass 158169437 R19.09 Health Concerns Section Related Observation LastModified by Organization Detai ls LastModified Time None Recorded Concern Status LastModified by Organization Details LastModified Time None Recorded Payers Encounter Date Sequence Insurance Name Policy Number Policy Hammond Covered Member ID Hammond Member ID Guarantor Name 09/18/2024 1 [employer] - DOS ON OR AFTER 19 (MEDICARE REPLACEMENT/ ADVANTAGE - HMO) [id number] Talib Walden [id number] Talib Walden Notes Date Note Type Note Provider Name and Address Organization Details Recorded Time 09/18/2024 text/html This is an 84 ye [...] anterior peripherally calcified mass. Darryl Willoughby MD [address], [place], [address], [facility] 09/18/2024 13:42:42
--- OUTSIDE RECORDS SUMMARY | 2024-09-30 08:03 | XMS_ITS | Continuity of Care Document ---
Author Organization [facility], [facility] Address [address] [place] [address] Care Team Providers Care Yard Hand Name Role Phone MIRACLEELIE MCLAUGHLINOLPH Primary Care Provider [phone] [facility] Primary Care Provider [phone] Assessment No assessment recorded. Plan of Treatment [...] Not available Lab urinalysi s, dipstick 2023 [facility], [address], [address], [place], [address], 08/14/2024 12:37:30 urinalysi s, microscop ic 2023 [facility], [address], [address], [place], [address], 08/14/2024 12:37:32 unlisted lab - urine cytology 2023 [facility], [address], [place], [address], 08/18/2024 10:27:12 cytology, urine 2023 [facility], [address], [address], [place], [address], 08/14/2024 11:36:52 Referral None recorded. Procedures None recorded. Surgeries None recorded. Imaging CT, urogram - Gross hematuria , indwellin g SP catheter 2023 [facility], [address] [place], [address], 08/22/2024 17:40:02 Medication Orders None recorded. Patient TargetsNo targets recorded. Patient Instructions Encounter Date Encounter Id Patient Instructions Last Modified By Organization Details Last Modified Time 08/14/2024 [id number] Patient is an 84-year-old male presents today [...] in-office cystoscopy. [email or web address] Not available 08/14/2024 11:50:44 Reason for Referral None Reported. Results Created Date Observation Date Name Description Value Unit Range Abnormal Flag Note LastModifiedBy Organization Detail LastModifiedTime 08/22/2008/21/2024 CT, urogr am No observ ation record ed. [facility] [address], [place], [address], 08/26/2024 10:20:36 Result Notes None recorded. Problems Name Problem SNOMED Code Status Onset Date Resolution Date Notes Provider Name and Address Organization Details Recorded Time Chronic retention of urine 530571866 Active 2023 [employer] [employer] null, [facility] 4 14:26:44 [place] hematuria 544930901 Active 2023 [employer] null, [facility] 4 14:26:53 Neurogenic urinary bladder 153290561 Active 2023 [employer] null, [facility] 4 14:27:18 Hypothyroidism 59921946 Active 2023 [employer] null, [facility] 4 14:30:01 Gastroesophage al reflux disease 611965612 Active 2023 [employer] null, [facility] 4 14:30:05 Problem Notes None recorded. Procedures Surgical History Date Name Laterality Status Provider Name and Address Organization Details Recorded Time 09/18/20 Cystoscopy- male completed Darryl Willoughby MD [address] [place] [address],[address], [place], [address], [facility] 09/18/2024 13:40:29 08/14/20 24 SP Tube change completed Clifford Torres [facility] 08/14/2024 12:15:29 08/14/20 24 COMPLEX VISIT completed JOSEPH CARR [address] [place] [address],[address], [place], [address], [facility] 08/14/2024 11:49:17 07/03/20 24 SP Tube change completed Soraida Wood [facility] 07/03/2024 11:46:09 06/05/20 24 SP Tube change completed Davin Nou Danelle [facility] 06/05/2024 12:11:12 05/08/20 24 SP Tube change completed Ermelinda Lopes [facility] 05/08/2024 12:29:28 04/03/20 24 SP Tube change completed Milena Higuera [facility] 04/03/2024 12:11:58 02/28/20 24 SP Tube change completed Angeline Walters [facility] 02/28/2024 12:31:57 01/31/20 24 SP Tube change completed Aranza Archuleta [facility] 01/31/2024 11:57:52 01/03/20 24 SP Tube change completed Ermelinda Lopes [facility] 01/03/2024 12:20:32 12/06/19 24 SP Tube change completed Angeline Walters [facility] 12/06/2023 12:46:05 11/08/19 24 SP Tube change completed Ermelinda Lopes [facility] 11/08/2023 14:39:44 10/11/20 23 SP Tube change completed Ermelinda Lopes [facility] 10/11/2023 11:39:17 09/14/20 23 SP Tube change completed Davin Branchu Danelle [facility] 09/14/2023 13:18:16 08/16/20 23 SP Tube change completed Yvette [place]ano [facility] 08/16/2023 12:02:53 07/05/20 23 SP Tube change completed Yvette [place] [facility] 07/05/2023 12:22:31 06/07/20 23 SP Tube change completed Rowan Williamson [facility] 06/07/2023 12:28:05 05/10/20 23 SP Tube change completed Phu De La Cruz [facility] 05/10/2023 12:47:33 04/12/20 23 SP Tube change completed Yvette [place] [facility] 04/12/2023 12:31:52 03/08/20 23 SP Tube change completed Aranza Archuleta [facility] 03/08/2023 13:22:09 02/09/20 23 SP Tube change completed Aranza Rocheevering [facility] 02/08/2023 11:52:52 01/05/20 23 SP Tube change completed Aranza Vievering [facility] 01/04/2023 11:45:26 12/07/19 23 SP Tube change completed Aranza Rocheeverjim [facility] 12/07/2022 12:13:16 11/09/19 23 SP Tube change completed Jennie Lambert [facility] 11/09/2022 16:56:31 10/05/20 22 SP Tube change completed Bushra Floyd [facility] 10/05/2022 16:33:40 08/31/20 22 SP Tube change completed Jayla Rebollar [facility] 08/31/2022 11:05:23 08/03/20 22 Urethral Catheter Change completed Jayla Rebollar [facility] 08/03/2022 11:14:48 07/06/20 22 SP Tube [facility] 07/06/2022 12:57:26 06/08/20 22 SP Tube change completed Juanita Jay [facility] 06/08/2022 11:35:54 05/04/20 22 SP Tube change completed LÁZARO STEPHEN, [address] [facility], [place], [address], [facility] 05/04/2022 10:47:46 03/09/20 22 SP Tube change completed Kassidy Bar [facility] 03/09/2022 12:25:17 02/10/20 22 SP Tube change completed Kassidy Bar [place] [facility] 02/09/2022 13:42:52 01/14/20 22 SP Tube change completed Lola Cadena [facility] 01/13/2022 14:38:39 11/10/19 22 Urethral Catheter Change completed Maeve Begum [facility] 11/10/2021 13:17:13 10/13/20 21 Urethral Catheter Change completed Maeve Begum [facility] 10/13/2021 13:24:07 08/25/20 21 Urethral Catheter Change completed Kassidy Bar [facility] 08/25/2021 10:18:16 07/28/20 21 Urethral Catheter Change completed Kassidy Bar [facility] 07/28/2021 09:47:05 06/30/20 21 Urethral Catheter Change completed Kassidy Bar [facility] 06/30/2021 15:47:53 06/02/20 21 Urethral Catheter Change completed Kassidy Bar [facility] 06/02/2021 11:40:17 05/05/20 21 Urethral Catheter Change completed Kassidy Bar [facility] 05/06/2021 09:12:30 04/07/20 21 Urethral Catheter Change completed Maeve Begum [facility] 04/07/2021 11:21:21 03/03/20 21 Urethral Catheter Change completed Kassidy Bar [facility] 03/03/2021 10:51:43 02/04/20 21 Urethral Catheter Change completed Kassidy Bar [facility] 02/03/2021 10:53:42 01/07/20 21 Urethral Catheter Change completed Kassidy Bar [facility] 01/06/2021 13:10:24 12/09/19 21 Urethral Catheter Change completed Kassidy Bar [facility] 12/09/2020 11:35:18 11/11/19 21 Urethral Catheter Change completed Kassidy Bar [facility] 11/11/2020 15:21:57 10/07/20 20 Urethral Catheter Change completed Maeve Begum [facility] 10/07/2020 11:07:34 09/09/20 20 Urethral Catheter Change completed Kassidy Bar [facility] 09/09/2020 11:17:32 08/05/20 20 Urethral Catheter Change completed Mckenna Mendosa [facility] 08/05/2020 11:32:29 07/01/20 20 Urethral Catheter Change completed Kassidy Bar [facility] 07/01/2020 14:32:03 06/03/20 20 Urethral Catheter Change completed Sandie Moreno [facility] 06/03/2020 12:09:51 04/29/20 20 Urethral Catheter Change completed Kassidy Bar [facility] 04/29/2020 16:40:30 03/04/20 20 Insert temp bladder cath completed Not Available [facility] 08/05/2020 15:54:52 01/29/20 20 Insert temp bladder cath completed Not Available [facility] 04/08/2020 13:43:57 01/01/20 20 Insert temp bladder cath completed Not Available [facility] 04/08/2020 13:43:57 12/04/19 20 Insert temp bladder cath completed Not Available [facility] 04/08/2020 13:43:57 10/30/19 20 Insert temp bladder cath completed Not Available [facility] 04/08/2020 13:43:58 10/09/20 19 Insert temp bladder cath completed Not Available [facility] 04/08/2020 13:43:58 08/28/20 19 Insert temp bladder cath completed Not Available [facility] 04/08/2020 13:43:58 07/31/20 19 Insert temp bladder cath completed Not Available [facility] 04/08/2020 13:43:58 07/03/20 19 Insert temp bladder cath completed Not Available [facility] 04/08/2020 13:43:58 05/29/20 19 Insert temp bladder cath completed Not Available [facility] 04/08/2020 13:43:58 05/08/20 19 Insert temp bladder cath completed Not Available [facility] 04/08/2020 13:43:57 03/20/20 19 Insert temp bladder cath completed Not Available [facility] 04/08/2020 13:43:57 02/21/20 19 Insert temp bladder cath completed Not Available [facility] 04/08/2020 13:43:58 01/24/20 19 Insert temp bladder cath completed Not Available [facility] 04/08/2020 13:43:57 12/26/19 19 Insert temp bladder cath completed Not Available [facility] 04/08/2020 13:43:57 11/21/19 19 Insert temp bladder cath completed Not Available [facility] 04/08/2020 13:43:57 10/24/20 18 Insert temp bladder cath completed Not Available [facility] 04/08/2020 13:43:58 09/26/20 18 Insert temp bladder cath completed Not Available [facility] 04/08/2020 13:43:58 08/22/20 18 Insert temp bladder cath completed Not Available [facility] 04/08/2020 13:43:57 07/25/20 18 Insert temp bladder cath completed Not Available [facility] 04/08/2020 13:43:58 06/27/20 18 Insert temp bladder cath completed Not Available [facility] 04/08/2020 13:43:57 05/24/20 18 Insert temp bladder cath completed Not Available [facility] 04/08/2020 13:43:57 04/25/20 18 Insert temp bladder cath completed Not Available [facility] 04/08/2020 13:43:58 02/28/20 18 Insert temp bladder cath completed Not Available [facility] 04/08/2020 13:43:57 01/25/20 18 Insert temp bladder cath completed Not Available [facility] 04/08/2020 13:43:57 01/04/20 18 Electro-uroflowmet ry first completed Not Available [facility] 04/08/2020 13:43:57 01/04/20 18 Cystometrogram w/vp scientific&up completed Not Available [facility] 04/08/2020 13:43:58 01/04/20 18 Insert temp bladder cath completed Not Available [facility] 04/08/2020 13:43:58 01/04/20 18 Intraabdominal pressure test completed Not Available [facility] 04/08/2020 13:43:58 01/04/20 18 Anal/urinary muscle study completed Not Available [facility] 04/08/2020 13:43:58 12/20/19 18 Cystoscopy completed Not Available [facility] 04/08/2020 13:43:57 12/20/19 18 Insert temp bladder cath completed Not Available [facility] 04/08/2020 13:43:58 10/29/19 13 colonoscopy completed Davin Mcclendon [facility] 09/14/2023 13:10:07 12/12/18 78 Removal of gallbladder completed Not Available [facility] 04/08/2020 13:43:57 Imaging Results None recorded. Procedure Notes None recorded. Medical Equipment None Reported. Allergies Allergen ID Allergen Name Allergen Category Reaction Reaction Severity Criticality Documentation Date Start Date Code Code System Note Provider Name and Address Organization Details Recorded Time 859251 Demerol medicatio n Not available Not available Not available 04/07/2020 30585 1 RxNorm Not Available [facility] 0 23:53:45 814186 ampicilli n medicatio n Not available Not available Not available 04/07/2020 733 RxNorm Not Available [facility] 0 23:53:45 247764 Penicilli n Not available Not available Not available Not available 04/07/2020 84821 RxNorm Not Available [facility] 0 23:53:45 Medications Name Sig Start [...] Updated DateTime 08/14/2024 167.64 cm Luma Quan [facility] 08/14/2024 11:21:37 Date Recorded Body height Body mass index (BMI) Body weight Provider Name and Address Organization Details Last Updated DateTime 08/14/2024 167.64 cm 25.8 kg/m2 53017.78 g Clifford Torres [facility] 08/14/2024 11:45:36 Social History Question Answer Notes LastModified by Organizat ion Details LastModified Time Tobacco Smoking Status Former Smoker Not Available [facility] 04/08/2020 02:45:12 What Is Your Level Of Alcohol Consumption? Occasional 1 Drink Per Month. Information not available 08/14/2024 What Is Your Level Of Caffeine Consumption? Occasional Information not available 06/03/2020 How Much Tobacco Do You Chew? None Information not available 06/03/2020 Are You Currently Employed? No [email or web address] Information not available 10/13/2021 Do You Or Have You Ever Used E-cigarettes Or Vape? Never Used Electronic Cigarettes Information not available 06/03/2020 When Did You Quit Smoking? 16+yearssincel astcigarette Information not available 01/13/2022 Race White [email or web address] Information n ot available 04/08/2020 Ethnicity Not /Latin o Information not available 06/03/[address] [place] Information not available 10/13/2021 Recreational Drug Use No [email or web address] Information not available 10/13/2021 Could You Be ? No [email or web address] Information not available 10/13/2021 Marital Status [email or web address] Informati on not available 04/08/2020 What Was The Date Of Your Most Recent Tobacco Screening? 09/18/2024 Information not available 09/18/2024 Have You Ever Been Counseled For Unhealthy Alcohol Use? No Information not available 08/14/2024 What Is Your Relationship Status? Unknown Information not available 01/13/2022 Are You Sexually Active? No [email or web address] Information not available 10/13/2021 Do You Or Have You Ever Used Smokeless Tobacco? Never Used Smokeless Tobacco Information not available 06/03/2020 How Much Tobacco Do You Smoke? No Information not available 09/18/2024 Do You Use Any Illicit Or Recreational Drugs? No [email or web address] Information not available 10/13/2021 Has Tobacco Cessation [...] :Father Heart Disease:Mother Medical History Condition Response Diabetes N Sexually Transmitted Infection N Other N Bleeding Disorder N High Blood Pressure Y Kidney Stones N Cancer N Depression N Lung Disease N High Cholesterol N GERD/Acid Reflux N Heart Disease N Immunizations Vaccine Type Date Status Provider Name and Address Organization Details Recorded Time COVID-19, mRNA, LNP-S, PF, 30 mcg/0.3 mL dose 12/07/2020 completed Tomasa ballesteros [facility] 01/13/2022 11:30:27 Influenza, split virus, trivalent, preservative 08/11/2008 [facility] 11:30:27 Influenza, split virus, trivalent, PF 09/01/2011 [facility] 11:30:27 Influenza, high-dose, quadrivalent, PF 09/21/2021 [facility] 11:30:27 Influenza, split virus, trivalent, preservative 08/26/2009 [facility] 11:30:27 Tdap 08/14/2019 [facility] 11:30:27 COVID-19, mRNA, LNP-S, PF, 30 mcg/0.3 mL dose 12/28/2020 [facility] 11:30:27 Influenza, high-dose, trivalent, PF 08/14/2019 completed Tomasa Juares null, [facility] 01/13/2022 11:30:27 COVID-19, mRNA, LNP-S, PF, 30 mcg/0.3 mL dose 10/18/2021 completed Juanita Jay null, [facility] 06/08/2022 11:35:03 pneumococcal polysaccharide PPV23 08/11/[address] [facility] 06/08/2021 16:56:42 Past Encounters Encounter ID Performer Location Encounter Start Date Encounter Closed Date Diagnosis/Indication Diagnosis SNOMED-CT Code Diagnosis ICD10 Code [id number] PAUL MCKEONMANJOSEPH [facility] [address] [address] 08/14/2024 11:19:03 08/14/2024 16:16:13 [place] hematuria 981399873 R31.0 Neurogenic urinary bladder 670500587 N31.9 [id number] Clifford Torres [facility] [address] [address] 08/14/2024 11:24:33 08/14/2024 12:16:10 Chronic retention of urine 562625750 R33.8 Health Concerns Section Related Observation LastModified by Organization Detai ls LastModified Time None Recorded Concern Status LastModified by Organization Details LastModified Time None Recorded Payers Encounter Date Sequence Insurance Name Policy Number Policy Hammond Covered Member ID Hammond Member ID Guarantor Name 08/14/2024 1 [employer] - DOS ON OR AFTER 19 (MEDICARE REPLACEMENT/ ADVANTAGE - HMO) [id number] Talib Walden [id number] Talib Walden Notes Date Note Type Note [...] patient back in yearly basis. JOSEPH CARR [address] [place] [address],[address], [place], [address], [facility] 08/14/2024 11:51:35
--- OUTSIDE RECORDS SUMMARY | 2024-09-30 08:03 | XMS_ITS | Continuity of Care Document ---
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 Plan of Treatment [...] Patient InstructionsNo instructions recorded. Reason for Referral None Reported. Results Created Date Observation Date Name Description Value Unit Range Abnormal Flag Note LastModifiedBy Organization Detail LastModifiedTime 08/22/2008/21/2024 CT, urogr am No observ ation record ed. [facility] [address], [place], [address], 08/26/2024 10:20:36 Result Notes None recorded. Problems Name Problem SNOMED Code Status Onset Date Resolution Date Notes Provider Name and Address Organization Details Recorded Time Chronic retention of urine 476366765 [facility] 2023 [facility] 4 14:26:44 [place] hematuria 757520282 Active 2023 [facility], [facility] 4 14:26:53 Neurogenic urinary bladder 829326492 [facility] 20[facility] 4 14:27:18 Hypothyroidism 84953177 Active 2023 [facility], [facility] 4 14:30:01 Gastroesophage al reflux disease 032791948 Active 2023 [facility], [facility] 4 14:30:05 Problem Notes None recorded. Procedures Surgical History Date Name Laterality Status Provider Name and Address Organization Details Recorded Time 09/18/20 Cystoscopy- male completed Darryl Willoughby MD [address] [place] [address],[address], [place], [address], [facility] 09/18/2024 13:40:29 08/14/20 SP Tube change completed Clifford Torres [facility] 08/14/2024 12:15:29 08/14/20 COMPLEX VISIT completed JOSEPH CARR [address] [place] [address],[address], [place], [address], [facility] 08/14/2024 11:49:17 07/03/20 24 SP Tube change completed Soraida Wood [facility] 07/03/2024 11:46:09 06/05/20 24 SP Tube change completed Davin Mcclendon [facility] 06/05/2024 12:11:12 05/08/20 24 SP Tube change completed Ermelinda Lopes [facility] 05/08/2024 12:29:28 04/03/20 24 SP Tube change completed Milena Higuera [facility] 04/03/2024 12:11:58 02/28/20 24 SP Tube change completed Angeline Walters [facility] 02/28/2024 12:31:57 01/31/20 24 SP Tube change completed Aranza Archuleta [facility] 01/31/2024 11:57:52 01/03/20 24 SP Tube change completed Ermelinda Lopes [facility] 01/03/2024 12:20:32 12/06/19 24 SP Tube change completed Angeline Walters [facility] 12/06/2023 12:46:05 11/08/19 24 SP Tube change completed Ermelinda Lopes [facility] 11/08/2023 14:39:44 10/11/20 23 SP Tube change completed Ermelinda Lopes [facility] 10/11/2023 11:39:17 09/14/20 23 SP Tube change completed Davin Mcclendon [facility] 09/14/2023 13:18:16 08/16/20 23 SP Tube change completed Yvette Montano [facility] 08/16/2023 12:02:53 07/05/20 23 SP Tube change completed Yvette Montano [facility] 07/05/2023 12:22:31 06/07/20 23 SP Tube change completed Rowan Williamson [facility] 06/07/2023 12:28:05 05/10/20 23 SP Tube change [facility] 05/10/2023 12:47:33 04/12/20 23 SP Tube change completed Yvette Montano [facility] 04/12/2023 12:31:52 03/08/20 23 SP Tube change completed Aranza Vievering [facility] 03/08/2023 13:22:09 02/09/20 23 SP Tube change completed Aranza Vievering [facility] 02/08/2023 11:52:52 01/05/20 23 SP Tube change completed Aranza Vievering [facility] 01/04/2023 11:45:26 12/07/19 23 SP Tube change completed Aranza Rocheevering [facility] 12/07/2022 12:13:16 11/09/19 23 SP Tube change completed Jennie Lambert [facility] 11/09/2022 16:56:31 10/05/20 22 SP Tube change completed Bushra Floyd [facility] 10/05/2022 16:33:40 08/31/20 22 SP Tube change completed Jayla Rebollar [facility] 08/31/2022 11:05:23 08/03/20 22 Urethral Catheter Change completed Jayla Rebollar [facility] 08/03/2022 11:14:48 07/06/20 22 SP Tube change completed Maeve Begum [facility] [employer] 07/06/2022 12:57:26 06/08/20 22 SP Tube change completed Juanita Jay [facility] 06/08/2022 11:35:54 05/04/20 22 SP Tube change completed JOSEPH BARBA [address] [place] [address], [phone], [facility] 05/04/2022 10:47:46 03/09/20 22 SP Tube change [place]assidy Bar [place] [facility] [place] [facility] 03/09/2022 12:25:17 02/10/20 22 SP Tube change completed Kassidy Bar [place] [facility] [place] [facility] 02/09/2022 13:42:52 01/14/20 22 SP Tube change completed Lola Cadena [place] [facility] [place] [facility] 01/13/2022 14:38:39 11/10/19 22 Urethral Catheter Change completed Maeve Begum [facility] 11/10/2021 13:17:13 10/13/20 21 Urethral Catheter Change completed Maeve Begum [facility] 10/13/2021 13:24:07 08/25/20 21 Urethral Catheter Change completed Kassidy Bar [facility] 08/25/2021 10:18:16 07/28/20 21 Urethral Catheter Change completed Kassidy Bar [facility] 07/28/2021 09:47:05 06/30/20 21 Urethral Catheter Change completed Kassidy Bar [facility] 06/30/2021 15:47:53 06/02/20 21 Urethral Catheter Change completed Kassidy Bar [facility] 06/02/2021 11:40:17 05/05/20 21 Urethral Catheter Change completed Kassidyroger Bar [facility] 05/06/2021 09:12:30 04/07/20 21 Urethral Catheter Change completed Maeve Begum [facility] 04/07/2021 11:21:21 03/03/20 21 Urethral Catheter Change completed Kassidy Bar [facility] 03/03/2021 10:51:43 02/04/20 21 Urethral Catheter Change completed Kassidy Bar [facility] 02/03/2021 10:53:42 01/07/20 21 Urethral Catheter Change completed Kassidy Bar [facility] 01/06/2021 13:10:24 12/09/19 21 Urethral Catheter Change completed Kassidy Bar [facility] 12/09/2020 11:35:18 11/11/19 21 Urethral Catheter Change completed Kassidy Bar [facility] 11/11/2020 15:21:57 10/07/20 20 Urethral Catheter Change completed Maeve Begum [facility] 10/07/2020 11:07:34 09/09/20 20 Urethral Catheter Change completed Kassidy Bar [facility] 09/09/2020 11:17:32 08/05/20 20 Urethral Catheter Change completed Mckenna Mendosa [facility] 08/05/2020 11:32:29 07/01/20 20 Urethral Catheter Change completed Kassidy Bar [facility] 07/01/2020 14:32:03 06/03/20 20 Urethral Catheter Change completed Sandie Moreno [facility] 06/03/2020 12:09:51 04/29/20 20 Urethral Catheter Change completed Kassidy Bar [facility] 04/29/2020 16:40:30 03/04/20 20 Insert temp bladder cath completed Not Available [facility] 08/05/2020 15:54:52 01/29/20 20 Insert temp bladder cath completed Not Available [facility] 04/08/2020 13:43:57 01/01/20 20 Insert temp bladder cath completed Not Available [facility] 04/08/2020 13:43:57 12/04/19 20 Insert temp bladder cath completed Not Available [facility] 04/08/2020 13:43:57 10/30/19 20 Insert temp bladder cath completed Not Available [facility] 04/08/2020 13:43:58 10/09/20 19 Insert temp bladder cath completed Not Available [facility] 04/08/2020 13:43:58 08/28/20 19 Insert temp bladder cath completed Not Available [facility] 04/08/2020 13:43:58 07/31/20 19 Insert temp bladder cath completed Not Available [facility] 04/08/2020 13:43:58 07/03/20 19 Insert temp bladder cath completed Not Available [facility] 04/08/2020 13:43:58 05/29/20 19 Insert temp bladder cath completed Not Available [facility] 04/08/2020 13:43:58 05/08/20 19 Insert temp bladder cath completed Not Available [facility] 04/08/2020 13:43:57 03/20/20 19 Insert temp bladder cath completed Not Available [facility] 04/08/2020 13:43:57 02/21/20 19 Insert temp bladder cath completed Not Available [facility] 04/08/2020 13:43:58 01/24/20 19 Insert temp bladder cath completed Not Available [facility] 04/08/2020 13:43:57 12/26/19 19 Insert temp bladder cath completed Not Available [facility] 04/08/2020 13:43:57 11/21/19 19 Insert temp bladder cath completed Not Available [facility] 04/08/2020 13:43:57 10/24/20 18 Insert temp bladder cath completed Not Available [facility] 04/08/2020 13:43:58 09/26/20 18 Insert temp bladder cath completed Not Available [facility] 04/08/2020 13:43:58 08/22/20 18 Insert temp bladder cath completed Not Available [facility] 04/08/2020 13:43:57 07/25/20 18 Insert temp bladder cath completed Not Available [facility] 04/08/2020 13:43:58 06/27/20 18 Insert temp bladder cath completed Not Available [facility] 04/08/2020 13:43:57 05/24/20 18 Insert temp bladder cath completed Not Available [facility] 04/08/2020 13:43:57 04/25/20 18 Insert temp bladder cath completed Not Available [facility] 04/08/2020 13:43:58 02/28/20 18 Insert temp bladder cath completed Not Available [facility] 04/08/2020 13:43:57 01/25/20 18 Insert temp bladder cath completed Not Available [facility] 04/08/2020 13:43:57 01/04/20 18 Electro-uroflowmet ry first completed Not Available [facility] 04/08/2020 13:43:57 01/04/20 18 Cystometrogram w/vp [employer] calvin klein fragrances & cosmetics&up completed Not Available [facility] 04/08/2020 13:43:58 01/04/20 18 Insert temp bladder cath completed Not Available [facility] 04/08/2020 13:43:58 01/04/20 18 Intraabdominal pressure test completed Not Available [facility] 04/08/2020 13:43:58 01/04/20 18 Anal/urinary muscle study completed Not Available [facility] 04/08/2020 13:43:58 12/20/19 18 Cystoscopy completed Not Available [facility] 04/08/2020 13:43:57 12/20/19 18 Insert temp bladder cath completed Not Available [facility] 04/08/2020 13:43:58 10/29/19 13 colonoscopy completed Davin Mcclendon [facility] 09/14/2023 13:10:07 12/12/18 78 Removal of gallbladder completed Not Available [facility] 04/08/2020 13:43:57 Imaging Results None recorded. Procedure Notes None recorded. Medical Equipment None Reported. Allergies Allergen ID Allergen Name Allergen Category Reaction Reaction Severity Criticality Documentation Date Start Date Code Code System Note Provider Name and Address Organization Details Recorded Time 679766 Demerol medicatio n Not available Not available Not available 04/07/2020 73239 1 RxNorm Not Available [facility] 0 23:53:45 [id number] ampicilli n medicatio n Not available Not available Not available 04/07/2020 733 RxNorm Not Available [facility] 0 23:53:45 [id number] Penicilli n Not available Not available Not available Not available 04/07/2020 11343 RxNorm Not Available [facility] 0 23:53:45 Medications Name Sig Start Date [...] Updated DateTime 08/14/2024 167.64 cm Luma Quan [facility] 08/14/2024 11:21:37 Date Recorded Body height Body mass index (BMI) Body weight Provider Name and Address Organization Details Last Updated DateTime 08/14/2024 167.64 cm 25.8 kg/m2 37542.78 g Clifford Torres [facility] 08/14/2024 11:45:36 Social History Question Answer Notes LastModified by Organizat ion Details LastModified Time Tobacco Smoking Status Former Smoker Not Available [facility] 04/08/2020 02:45:12 What Is Your Level Of Alcohol Consumption? Occasional 1 Drink Per Month. Information not available 08/14/2024 What Is Your Level Of Caffeine Consumption? Occasional Information not available 06/03/2020 How Much Tobacco Do You Chew? None Information not available 06/03/2020 Are You Currently Employed? No [email or web address] Information not available 10/13/2021 Do You Or Have You Ever Used E-cigarettes Or Vape? Never Used Electronic Cigarettes Information not available 06/03/2020 When Did You Quit Smoking? 17+yearssincel [email or web address] Information not available 01/13/2022 Race White Information n ot available 04/08/2020 Ethnicity Not /Latin o Information not available 06/03/2020 Preferred Language Upper Sorbian [email or web address] Information not available 10/13/2021 Recreational Drug Use No [email or web address] Information not available 10/13/2021 Could You Be ? No [email or web address] Information not available 10/13/2021 Marital Status Informati on not available 04/08/2020 What Was The Date Of Your Most Recent Tobacco Screening? 09/18/2024 Information not available 09/18/2024 Have You Ever Been Counseled For Unhealthy Alcohol Use? No Information not available 08/14/2024 What Is Your Relationship Status? Unknown Information not available 01/13/2022 Are You Sexually Active? No [email or web address] Information not available 10/13/2021 Do You Or Have You Ever Used Smokeless Tobacco? Never Used Smokeless Tobacco Information not available 06/03/2020 How Much Tobacco Do You Smoke? No Information not available 09/18/2024 Do You Use Any Illicit Or Recreational Drugs? No [email or web address] Information not available 10/13/2021 Has Tobacco Cessation [...] mcg/0.3 mL dose 12/07/2020 completed Tomasa ballesteros [facility] 01/13/2022 11:30:27 Influenza, split virus, trivalent, preservative 08/11/2008 [facility] 11:30:27 Influenza, split virus, trivalent, PF 09/01/2011 [facility]/13/[facility]22 11:30:27 Influenza, high-dose, quadrivalent, PF 09/21/2021 completed Tomasa ballesteros [facility] 01/13/2022 11:30:27 Influenza, split virus, trivalent, preservative 08/26/2009 completed Tomasa Hopestmorena ballesteros [facility] 01/13/2022 11:30:27 Tdap 08/14/2019 [facility]/13/[facility]22 11:30:27 COVID-19, mRNA, LNP-S, PF, 30 mcg/0.3 mL dose 12/28/2020 completed Tomasa Juares null, [facility] 01/13/2022 11:30:27 Influenza, high-dose, trivalent, PF 08/14/2019 completed Tomasa Juares null, [facility] 01/13/2022 11:30:27 COVID-19, mRNA, LNP-S, PF, 30 mcg/0.3 mL dose 10/18/2021 completed Juanita Jay null, [facility] 06/08/2022 11:35:03 pneumococcal polysaccharide PPV23 08/11/2008 completed Prema Marmolejo [facility] 06/08/2021 16:56:42 Past Encounters Encounter ID Performer Location Encounter Start Date Encounter Closed Date Diagnosis/Indication Diagnosis SNOMED-CT Code Diagnosis ICD10 Code [id number] PAUL BILL JOSEPH [facility] [address] [address] 08/14/2024 11:19:03 08/14/2024 16:16:13 [place] hematuria 400275577 R31.0 Neurogenic urinary bladder 356673710 N31.9 [id number] Clifford Torres [facility] [address] [place] [address] 08/14/2024 11:24:33 08/14/2024 12:16:10 Chronic retention of urine 243468370 R33.8 Health Concerns Section Related Observation LastModified by Organization Detai ls LastModified Time None Recorded Concern Status LastModified by Organization Details LastModified Time None Recorded Payers Encounter Date Sequence Insurance Name Policy Number Policy Hammond Covered Member ID Hammond Member ID Guarantor Name 08/14/2024 1 [employer] - DOS ON OR AFTER 19 (MEDICARE REPLACEMENT/ ADVANTAGE - HMO) [id number] Talib Walden [id number] Talib Walden Notes Date Note Type Note [...] patient back in yearly basis. JOSEPH CARR [id number] [facility],[address], [place], [address], [facility] 08/14/2024 11:51:35
--- OUTSIDE RECORDS SUMMARY | 2024-09-30 08:04 | XMS_ITS | Continuity of Care Document ---
Author Organization [facility], [facility] Address [address] [place] [id number] Care Team Providers Care Investigation Specialist Name Role Phone MIRACLEELIE MCLAUGHLINOLPH Primary Care Provider [phone] [facility] Primary Care Provider Assessment No assessment recorded. [...] urogr am No observ ation record ed. [facility] [address], [place], [address], 08/26/2024 10:20:36 Result Notes None recorded. Problems Name Problem SNOMED Code Status Onset Date Resolution Date Notes Provider Name and Address Organization Details Recorded Time Chronic retention of urine 927134447 Active [address] [facility], [facility] 4 14:26:44 [place] hematuria 599583078 Active 2023 [facility], [facility] 4 14:26:53 Neurogenic urinary bladder 898993770 Active [address] [facility], [facility] 4 14:27:18 Hypothyroidism 55152585 Active 2023 [facility], [facility] 4 14:30:01 Gastroesophage al reflux disease 402136131 Active 2023 [facility], [facility] 4 14:30:05 Problem Notes None recorded. Procedures Surgical History Date Name Laterality Status Provider Name and Address Organization Details Recorded Time 09/18/20 Cystoscopy- male completed Darryl Willoughby MD [address] [place] [address],[address], [place], [address], [facility] 09/18/2024 13:40:29 08/14/20 SP Tube change completed Clifford Torres [facility] 08/14/2024 12:15:29 08/14/20 COMPLEX VISIT completed JOSEPH CARR [address] [place] [address],[address], [place], [address], [facility] 08/14/2024 11:49:17 07/03/20 24 SP Tube change completed Soraida Wood [facility] 07/03/2024 11:46:09 06/05/20 24 SP Tube change completed aDvin Mcclendon [facility] 06/05/2024 12:11:12 05/08/20 24 SP Tube change completed Ermelinda Lopes [facility] 05/08/2024 12:29:28 04/03/20 24 SP Tube change completed Milena Higuera [facility] 04/03/2024 12:11:58 02/28/20 24 SP Tube change completed Angeline Walters [facility] 02/28/2024 12:31:57 01/31/20 24 SP Tube change completed Aranza Archuleta [facility] 01/31/2024 11:57:52 01/03/20 24 SP Tube change completed Ermelinda Lopes [facility] 01/03/2024 12:20:32 12/06/19 24 SP Tube change completed Angeline Walters [facility] 12/06/2023 12:46:05 11/08/19 24 SP Tube change completed Ermelinda Lopes [facility] 11/08/2023 14:39:44 10/11/20 23 SP Tube change completed Ermelinda Lopes [facility] 10/11/2023 11:39:17 09/14/20 23 SP Tube change completed Davin Mcclendon [facility] 09/14/2023 13:18:16 08/16/20 23 SP Tube change completed Yvette Montano [facility] 08/16/2023 12:02:53 07/05/20 23 SP Tube change completed Yvette Montano [facility] 07/05/2023 12:22:31 06/07/20 23 SP Tube change completed Rowan Williamson [facility] 06/07/2023 12:28:05 05/10/20 23 SP Tube change [facility] 05/10/2023 12:47:33 04/12/20 23 SP Tube change completed Yvette Montano [facility] 04/12/2023 12:31:52 03/08/20 23 SP Tube change completed Aranza Vievering [facility] 03/08/2023 13:22:09 02/09/20 23 SP Tube change completed Aranza Vievering [facility] 02/08/2023 11:52:52 01/05/20 23 SP Tube change completed Aranza Vievering [facility] 01/04/2023 11:45:26 12/07/19 23 SP Tube change completed Aranza Rocheevering [facility] 12/07/2022 12:13:16 11/09/19 23 SP Tube change completed Jennie Lambert [facility] 11/09/2022 16:56:31 10/05/20 22 SP Tube change completed Bushra Floyd [facility] 10/05/2022 16:33:40 08/31/20 22 SP Tube change completed Jayla Rebollar [facility] 08/31/2022 11:05:23 08/03/20 22 Urethral Catheter Change completed Jayla Rebollar [facility] 08/03/2022 11:14:48 07/06/20 22 SP Tube change completed Maeve Begum [facility] 07/06/2022 12:57:26 06/08/20 22 SP Tube change completed Juanita Jay [facility] 06/08/2022 11:35:54 05/04/20 22 SP Tube change completed JOSEPH BARBA [address] [place] [address], [address], [facility] 05/04/2022 10:47:46 03/09/20 22 SP Tube change [place]assidy Bar [place] [facility] 03/09/2022 12:25:17 02/10/20 22 SP Tube change completed Kassidy Bar [place] [facility] 02/09/2022 13:42:52 01/14/20 22 SP Tube change completed Lola Cadena [place] [facility] 01/13/2022 14:38:39 11/10/19 22 Urethral Catheter Change completed Maeve Begum [facility] 11/10/2021 13:17:13 10/13/20 21 Urethral Catheter Change completed Maeve Begum [facility] 10/13/2021 13:24:07 08/25/20 21 Urethral Catheter Change completed Kassidy Bar [facility] 08/25/2021 10:18:16 07/28/20 21 Urethral Catheter Change completed Kassidy Bar [facility] 07/28/2021 09:47:05 06/30/20 21 Urethral Catheter Change completed Kassidy Bar [facility] 06/30/2021 15:47:53 06/02/20 21 Urethral Catheter Change completed Kassidy Bar [facility] 06/02/2021 11:40:17 05/05/20 21 Urethral Catheter Change completed Kassidyroger Bar [facility] 05/06/2021 09:12:30 04/07/20 21 Urethral Catheter Change completed Maeve Begum [facility] 04/07/2021 11:21:21 03/03/20 21 Urethral Catheter Change completed Kassidy Bar [facility] 03/03/2021 10:51:43 02/04/20 21 Urethral Catheter Change completed Kassidy Bar [facility] 02/03/2021 10:53:42 01/07/20 21 Urethral Catheter Change completed Kassidy Bar [facility] 01/06/2021 13:10:24 12/09/19 21 Urethral Catheter Change completed Kassidy Bar [facility] 12/09/2020 11:35:18 11/11/19 21 Urethral Catheter Change completed Kassidy Bar [facility] 11/11/2020 15:21:57 10/07/20 20 Urethral Catheter Change completed Maeve Begum [facility] 10/07/2020 11:07:34 09/09/20 20 Urethral Catheter Change completed Kassidy Bar [facility] 09/09/2020 11:17:32 08/05/20 20 Urethral Catheter Change completed Mckenna Mendosa [facility] 08/05/2020 11:32:29 07/01/20 20 Urethral Catheter Change completed Kassidy Bar [facility] 07/01/2020 14:32:03 06/03/20 20 Urethral Catheter Change completed Sandie Moreno [facility] 06/03/2020 12:09:51 04/29/20 20 Urethral Catheter Change completed Kassidy Bar [facility] 04/29/2020 16:40:30 03/04/20 20 Insert temp bladder cath completed Not Available [facility] 08/05/2020 15:54:52 01/29/20 20 Insert temp bladder cath completed Not Available [facility] 04/08/2020 13:43:57 01/01/20 20 Insert temp bladder cath completed Not Available [facility] 04/08/2020 13:43:57 12/04/19 20 Insert temp bladder cath completed Not Available [facility] 04/08/2020 13:43:57 10/30/19 20 Insert temp bladder cath completed Not Available [facility] 04/08/2020 13:43:58 10/09/20 19 Insert temp bladder cath completed Not Available [facility] 04/08/2020 13:43:58 08/28/20 19 Insert temp bladder cath completed Not Available [facility] 04/08/2020 13:43:58 07/31/20 19 Insert temp bladder cath completed Not Available [facility] 04/08/2020 13:43:58 07/03/20 19 Insert temp bladder cath completed Not Available [facility] 04/08/2020 13:43:58 05/29/20 19 Insert temp bladder cath completed Not Available [facility] 04/08/2020 13:43:58 05/08/20 19 Insert temp bladder cath completed Not Available [facility] 04/08/2020 13:43:57 03/20/20 19 Insert temp bladder cath completed Not Available [facility] 04/08/2020 13:43:57 02/21/20 19 Insert temp bladder cath completed Not Available [facility] 04/08/2020 13:43:58 01/24/20 19 Insert temp bladder cath completed Not Available [facility] 04/08/2020 13:43:57 12/26/19 19 Insert temp bladder cath completed Not Available [facility] 04/08/2020 13:43:57 11/21/19 19 Insert temp bladder cath completed Not Available [facility] 04/08/2020 13:43:57 10/24/20 18 Insert temp bladder cath completed Not Available [facility] 04/08/2020 13:43:58 09/26/20 18 Insert temp bladder cath completed Not Available [facility] 04/08/2020 13:43:58 08/22/20 18 Insert temp bladder cath completed Not Available [facility] 04/08/2020 13:43:57 07/25/20 18 Insert temp bladder cath completed Not Available [facility] 04/08/2020 13:43:58 06/27/20 18 Insert temp bladder cath completed Not Available [facility] 04/08/2020 13:43:57 05/24/20 18 Insert temp bladder cath completed Not Available [facility] 04/08/2020 13:43:57 04/25/20 18 Insert temp bladder cath completed Not Available [facility] 04/08/2020 13:43:58 02/28/20 18 Insert temp bladder cath completed Not Available [facility] 04/08/2020 13:43:57 01/25/20 18 Insert temp bladder cath completed Not Available [facility] 04/08/2020 13:43:57 01/04/20 18 Electro-uroflowmet ry first completed Not Available [facility] 04/08/2020 13:43:57 01/04/20 18 Cystometrogram w/choral teacher&up completed Not Available [facility] 04/08/2020 13:43:58 01/04/20 18 Insert temp bladder cath completed Not Available [facility] 04/08/2020 13:43:58 01/04/20 18 Intraabdominal pressure test completed Not Available [facility] 04/08/2020 13:43:58 01/04/20 18 Anal/urinary muscle study completed Not Available [facility] 04/08/2020 13:43:58 12/20/19 18 Cystoscopy completed Not Available [facility] 04/08/2020 13:43:57 12/20/19 18 Insert temp bladder cath completed Not Available [facility] 04/08/2020 13:43:58 10/29/19 13 colonoscopy completed Davin Mcclendon [facility] 09/14/2023 13:10:07 12/12/18 78 Removal of gallbladder completed Not Available [facility] 04/08/2020 13:43:57 Imaging Results None recorded. Procedure Notes None recorded. Medical Equipment None Reported. Allergies Allergen ID Allergen Name Allergen Category Reaction Reaction Severity Criticality Documentation Date Start Date Code Code System Note Provider Name and Address Organization Details Recorded Time [id number] Demerol medicatio n Not available Not available Not available 04/07/2020 97326 1 RxNorm Not Available [facility] 0 23:53:45 555929 ampicilli n medicatio n Not available Not available Not available 04/07/2020 733 RxNorm Not Available [facility] 0 23:53:45 274534 Penicilli n Not available Not available Not available Not available 04/07/2020 45704 RxNorm Not Available [facility] 0 23:53:45 Medications Name Sig Start [...] Available Not Available No t Available Vitals None Recorded Social History Question Answer Notes LastModified by Organizat ion Details LastModified Time Tobacco Smoking Status Former Smoker Not Available [facility] 04/08/2020 02:45:12 What Is Your Level Of Alcohol Consumption? Occasional 1 Drink Per Month. Information not available 08/14/2024 What Is Your Level Of Caffeine Consumption? Occasional Information not available 06/03/2020 How Much Tobacco Do You Chew? None Information not available 06/03/2020 Are You Currently Employed? No [email or web address] Information not available 10/13/2021 Do You Or Have You Ever Used E-cigarettes Or Vape? Never Used Electronic Cigarettes Information not available 06/03/2020 When Did You Quit Smoking? 17+yearssincel [email or web address] Information not available 01/13/2022 Race White Information n ot available 04/08/2020 Ethnicity Not /Latin o Information not available 06/03/2020 Preferred Language Venezuelan [email or web address] Information not available 10/13/2021 Recreational Drug Use No [email or web address] Information not available 10/13/2021 Could You Be ? No [email or web address] Information not available 10/13/2021 Marital Status Informati on not available 04/08/2020 What Was The Date Of Your Most Recent Tobacco Screening? 09/18/2024 Information not available 09/18/2024 Have You Ever Been Counseled For Unhealthy Alcohol Use? No Information not available 08/14/2024 What Is Your Relationship Status? Unknown Information not available 01/13/2022 Are You Sexually Active? No [email or web address] Information not available 10/13/2021 Do You Or Have You Ever Used Smokeless Tobacco? Never Used Smokeless Tobacco Information not available 06/03/2020 How Much Tobacco Do You Smoke? No Information not available 09/18/2024 Do You Use Any Illicit Or Recreational Drugs? No [email or web address] Information not available 10/13/2021 Has Tobacco Cessation [...] 30 mcg/0.3 mL dose 12/07/2020 completed Tomasa Goodpaster [facility] 01/13/2022 11:30:27 Influenza, split virus, trivalent, preservative 08/11/2008 [facility] 01/13[facility] 11:30:27 Influenza, split virus, trivalent, PF 09/01/2011 completed [facility] 01/13/2022 11:30:27 Influenza, high-dose, quadrivalent, PF 09/21/2021 completed Tomasa Goodpaster [facility] 01/13/2022 11:30:27 Influenza, split virus, trivalent, preservative 08/26/2009 completed [facility] 01/13/2022 11:30:27 Tdap 08/14/2019 completed [facility] 01/13/2022 11:30:27 COVID-19, mRNA, LNP-S, PF, 30 mcg/0.3 mL dose 12/28/2020 completed [facility] 01/13/2022 11:30:27 Influenza, high-dose, trivalent, PF 08/14/2019 completed [facility] 01/13/2022 11:30:27 COVID-19, mRNA, LNP-S, PF, 30 mcg/0.3 mL dose 10/18/2021 completed Juanita ballesteros, [facility] 06/08/2022 11:35:03 pneumococcal polysaccharide PPV23 08/11/2008 completed Prema Sanchezkland lesli, [facility] 06/08/2021 16:56:42 Past Encounters Encounter ID Performer Location Encounter Start Date Encounter Closed Date Diagnosis/Indication Diagnosis SNOMED-CT Code Diagnosis ICD10 Code [id number] [facility] [address] [address] 06/05/2024 11:11:35 06/06/2024 08:34:12 Chronic retention of urine 811954623 R33.8 [id number] Soraida Wood [facility] [address] [address] 07/03/2024 11:07:34 07/04/2024 10:04:49 Chronic retention of urine 616721770 R33.8 Health Concerns Section Related Observation LastModified by Organization Detai ls LastModified Time None Recorded Concern Status LastModified by Organization Details LastModified Time None Recorded Payers Encounter Date Sequence Insurance Name Policy Number Policy Hammond Covered Member ID Hammond Member ID Guarantor Name 07/03/2024 1 [employer] - DOS ON OR AFTER 19 (MEDICARE REPLACEMENT/ ADVANTAGE - HMO) [id number] Tlaib Walden [id number] Talib Walden
--- NOTE | 2024-09-30 08:15 | MR_ITS ---
[address] [address] Phone:?[phone] Fax:?[phone] Referring Physician Information: Darryl Willoughby M.D. [address] [facility] [address] Phone:?[phone] Fax:?[phone] Patient:?Talib Walden D.O.B:?1940 Sex:?Male Phone:?[phone] [facility] MRN:?[id number] Exam Date:?09/30/2024 EXAM: MR PELVIS WITHOUT AND WITH CONTRAST CLINICAL INFORMATION: Prostate mass. COMPARISON: None. TECHNICAL INFORMATION: Examination was performed on a 1.5T magnet. High- resolution T1 axial, T2 axial, T2 FSE sagittal and T2 FSE coronal images were obtained through the prostate gland and seminal vesicles. Diffusion images were obtained in the axial plane. 20 mL of Dotarem were injected with dynamic enhanced images of the prostate gland in the axial plane. T1 fat saturation sagittal and coronal images were obtained postinjection. Images were analyzed with 3-D postprocessing online under concurrent physician supervision using a separate [employer] workstation. INTERPRETATION: The prostate gland measures 8.2 x 8.0 x 11.8 cm (TV x AP x SI) for an estimated volume of 320 cc. Transitional and central zones: There is extensive glandular and stromal hyperplasia with well encapsulated BPH nodules (PI-RADS 2). No focal CZ/TZ lesions concerning for clinically significant adenocarcinoma. Peripheral zones: No focal PZ lesions concerning for clinically significant adenocarcinoma (PI-RADS 1). Pelvis: No trent transcapsular disease. Neurovascular bundles and seminal vesicles appear intact. No pelvic lymphadenopathy or evident bone marrow disease. Suprapubic catheter in expected position. Large right inguinal hernia contains nonobstructed bowel. CONCLUSION: Massive prostatomegaly with extensive BPH. No suspicious (PI-RADS 3, 4, or 5) lesions identified. No trent transcapsular, franko, or skeletal disease in the pelvis. PI-RADS Assessment Categories: Score 1 = very low; clinically significant disease highly unlikely Score 2 = low; clinically significant disease is unlikely Score 3 = intermediate; clinically significant disease is equivocal Score 4 = high; clinically significant disease is likely Score 5 = very high; clinically significant disease is highly likely Electronically signed on 10/06/2024 10:18:00 AM by Kimo Rodriguez M.D.
== END 2024-09-30 08:00 | disposition home or self-care (01) ==
LOC: MRI 08:00
PROVIDERS: PCP Internal Medicine; Visit Provider Urology
DX: R19.09 Other intra-abdominal and pelvic swelling, mass and lump (principal); N42.89 Other specified disorders of prostate
CPT/HCPCS: 72197; A9575

== ENCOUNTER 2025-01-27 08:20 | Outpatient (CLI) | payer MEDICARE, SELFPAY | END 2025-01-27 08:21 | disposition home or self-care (01) | LOC: NFLDREF 01-28 00:41 | PROVIDERS: PCP Internal Medicine; Referring Provider Internal Medicine; Visit Provider Internal Medicine | DX: E03.9 Hypothyroidism, unspecified (principal); I10 Essential (primary) hypertension; N40.1 Benign prostatic hyperplasia with lower urinary tract symptoms; Z13.220 Encounter for screening for lipoid disorders; Z12.5 Encounter for screening for malignant neoplasm of prostate | CPT/HCPCS: 80053; 80061; 84153; 84439; 84443 ==

== ENCOUNTER 2025-02-04 15:44 | Outpatient (CLI) | payer MEDICARE, SELFPAY | END 2025-02-04 15:45 | disposition home or self-care (01) | LOC: NFLDREF 02-09 02:58 | PROVIDERS: PCP Internal Medicine; Referring Provider Internal Medicine; Visit Provider Internal Medicine | DX: N39.0 Urinary tract infection, site not specified (principal); Z93.59 Other cystostomy status | CPT/HCPCS: 87086 ==

== ENCOUNTER 2025-05-28 15:00 | Outpatient (CLI) | payer MEDICARE, SELFPAY | END 2025-05-28 15:01 | disposition home or self-care (01) | LOC: NFLDREF 06-02 15:55 | PROVIDERS: PCP Internal Medicine; Referring Provider Internal Medicine; Visit Provider Internal Medicine | DX: N39.0 Urinary tract infection, site not specified (principal); B96.89 Other specified bacterial agents as the cause of diseases classified elsewhere | CPT/HCPCS: 87086 ==